=== PATIENT | female | born 1950 | race Caucasian/White ===

== ENCOUNTER → 2017-06-07 | Outpatient (CLI) | payer OTHER | LOC: FIMAGING 10:10 | PROVIDERS: ATTEND Physician Assistant Medical | DX: N20.0 Calculus of kidney (principal); R93.421 Abnormal radiologic findings on diagnostic imaging of right kidney ==

== ENCOUNTER → 2017-06-27 | Outpatient (CLI) | payer OTHER | LOC: FIMAGING 08:29 | PROVIDERS: ATTEND Physician Assistant Medical | DX: Z87.442 Personal history of urinary calculi (principal); Z96.0 Presence of urogenital implants ==

== ENCOUNTER 2017-12-05 09:20 | Inpatient (IN) | payer OTHER ==
[2017-12-05] MEDS ORDERED: cefOXitin SODIUM 2 GM in STERILE WATER INJ 21 ML IV ONE (09:49)
[2017-12-05] MEDS ORDERED: BUPIVACAINE/EPI 0.5% 30 ML SDV ONE (09:59)
--- NOTE | 2017-12-05 10:15 | PDHPUP ---
History & Physical Update H&P update statement: This history and physical update is based on an assessment of the patient which was completed after admission or registration (within 24 hours), but prior to the surgery/procedure. H&P update: no change in patient's condition since H&P completed
[2017-12-05] MEDS ORDERED: LR 1,000 ML IV ONE (10:26)
--- NOTE | 2017-12-05 10:26 | PDANEPAE ---
ANE History of Present Illness Left pyeloplasty DaVinci assist ANE Past Medical History - Cardiovascular History Hx Hypertension: No Hx Arrhythmias: No Hx Chest Pain: No Hx Coronary Artery / Peripheral Vascular Disease: No Hx CHF / Valvular Disease: No Hx Palpitations: No - Pulmonary History Hx COPD: No Hx Asthma/Reactive Airway Disease: Yes Hx Recent Upper Respiratory Infection: No Hx Oxygen in Use at Home: Yes O2 in Use at Home (L/minute): 2.L Hx Sleep Apnea: Yes Sleep Apnea Screening Result - Last Documented: Positive Pulmonary History Comment: upper resp infections and colds trigger asthma - Neurologic History Hx Cerebrovascular Accident: No Hx Seizures: Yes Hx Dementia: No Neurologic History Comment: LAST SEIZURE OVER A YEAR AGO - Endocrine History Hx Diabetes: No Hypothyroid: No Hyperthyroid: No Obesity: mild - Renal History Hx Renal Disorders: No Renal History Comment: KIDNEY STONES - Liver History Hx Hepatic Disorders: No - Neurological & Psychiatric Hx Hx Neurological and Psychiatric Disorders: Yes Neurological / Psychiatric History Comment: TBI 15ys ago - Cancer History Hx Cancer: Yes Cancer History Comment: cancerous tissue removed - Congenital Disorder History Hx Congenital Disorders: No - GI History Hx Gastrointestinal Disorders: Yes Gastrointestinal History Comment: fundaplication 25 yrs ago - Other Health History Other Health History: dentures uppers. front tooth temporary - Chronic Pain History Chronic Pain: Yes (right knee) - Surgical History Prior Surgeries: left rotator cuff repair. 2 cystoscopies jun 28,aug 29 ANE Review of Systems Review of Systems: - Exercise capacity METS (RN): 4 METS ANE Patient History - Allergies Allergies/Adverse Reactions: ciprofloxacin [From Cipro] Allergy (Mild, Verified 11/13/17 11:42) Rash Penicillins Allergy (Mild, Verified 11/13/17 11:42) Rash Sulfa (Sulfonamide Antibiotics) Allergy (Mild, Verified 11/13/17 11:42) Rash BEE STINGS Allergy (Unknown, Uncoded 11/13/17 11:42) - Home Medications Home medications: home medication list seen and reviewed Home Medications: Albuterol [Proventil Inhaler HFA (*)] 1 - 2 puffs IH DAILY PRN 11/12/17 [Last Taken Unknown] Cholecalciferol Vit D3 [Vitamin D3 (*)] 5,000 units PO DAILY 11/12/17 [Last Taken Unknown] Levothyroxine [Synthroid 88 mcg (*)] 88 mcg PO DAILY06 11/12/17 [Last Taken Unknown] Liothyronine Sodium [Cytomel 5 mcg (*)] 5 mcg PO DAILY 11/12/17 [Last Taken Unknown] Omeprazole 20 mg PO DAILY 11/12/17 [Last Taken Unknown] Venlafaxine Xr [Effexor Xr 75MG (*)] 75 mg PO DAILY 11/12/17 [Last Taken Unknown ] - NPO status NPO Since - Liquids (Date): 12/05/17 NPO Since - Liquids (Time): 05:00 NPO Since - Solids (Date): 12/04/17 NPO Since - Solids (Time): 11:00 - Anes Hx Anes Hx: post operative nausea - Smoking Hx Smoking Status: Light smoker Marijuana use: Yes - Family Anes Hx Family Anes Hx: none Family Hx Anesthesia Complications: none ANE Labs/Vital Signs - Vital Signs Blood Pressure: 122/71 Heart Rate: 79 Respiratory Rate: 16 O2 Sat (%): 93 Height: 161.29 cm Weight: 81.647 kg ANE Physical Exam - Airway Neck exam: decreased ROM Mallampati Score: Class 1 Mouth exam: normal dental/mouth exam - Pulmonary Pulmonary: no respiratory distress - Cardiovascular Cardiovascular: regular rate and rhythym - ASA Status ASA Status: III ANE Anesthesia Plan Anesthesia Plan: general endotracheal anesthesia
[2017-12-05] MEDS ORDERED: MIDAZOLAM 2 MG/2 ML VIAL IVP ONE (10:29)
[2017-12-05] MEDS ORDERED: fentaNYL 250 MCG/5 ML INJ ONE ×2 (10:38→13:31)
[2017-12-05] MEDS ORDERED: LIDOCAINE 2% 5 ML SDV ONE (10:38)
[2017-12-05] MEDS ORDERED: GLYCOPYRROLATE 0.2 MG/1 ML VIAL ONE (10:38)
[2017-12-05] MEDS ORDERED: ROCURONIUM 100 MG/10 ML VIAL ONE ×2 (10:38→12:10)
[2017-12-05] MEDS ORDERED: DEXAMETHASONE 4 MG/ML VIAL ONE ×2 (10:38)
[2017-12-05] MEDS ORDERED: PROPOFOL/EMULSION 500 MG/50 ML BOTTLE IV ONE ×3 (10:38→13:31)
[2017-12-05] MEDS ORDERED: SURGIFLO MATRIX KIT WITH THROMBIN 8 ML TP ONE (15:03)
[2017-12-05] MEDS ORDERED: HYDROmorphONE/DILAUDID 2 MG/ML INJ ONE ×2 (15:07→16:35)
[2017-12-05] MEDS ORDERED: ONDANSETRON 4 MG/2 ML VIAL ONE (15:21)
[2017-12-05] MEDS ORDERED: SUGAMMADEX SODIUM 200 MG/2 ML VIAL IVP ONE (15:22)
[2017-12-05] MEDS ORDERED: PETROLAT,WHT/MIN OIL/SOD CHL 3.5 GM OPHT.OINT ONE (15:24)
[2017-12-05] MEDS ORDERED: MEPERIDINE 25 MG/ML SYR IVP PRN (15:42)
[2017-12-05] MEDS ORDERED: ALBUTEROL 3 ML DEYVIAL IH PRN (15:42)
[2017-12-05] MEDS ORDERED: HYDROmorphONE/DILAUDID 2 MG/ML INJ IVP PRN (15:42)
[2017-12-05] MEDS ORDERED: NALOXONE HCL 0.4 MG/ML INJ IVP PRN ×2 (15:42→16:00)
[2017-12-05] MEDS ORDERED: PROMETHAZINE HCL 25 MG/ML INJ IVP PRN ×2 (15:42→15:59)
[2017-12-05] MEDS ORDERED: ONDANSETRON 4 MG/2 ML VIAL IVP PRN (15:42)
--- NOTE | 2017-12-05 15:56 | POSTOPPROG ---
Post Op Note Date of Operation: 12/05/17 Surgeon: Clover Harris (# ) Anesthesia: GET(General Endotracheal) Pre-op Diagnosis: Left UPJ obstruction Post-op Diagnosis: Left UPJ obstruction Procedure: Robotic left dismembered pyeloplasty Findings: See op note Inf/Abcess present in the surg proc area at time of surgery?: No EBL: 100-500 (150 cc) Complications: None Drains: Rodney Marquez (10 Flat) Specimen(s): UPJ
[2017-12-05] MEDS ORDERED: ALBUTEROL 60 PUFFS/8 GM MDI IH PRN (15:57)
[2017-12-05] MEDS ORDERED: fentaNYL 100 MCG/2 ML INJ ONE ×2 (16:05→16:34)
[2017-12-05] MEDS: fentaNYL 100 MCG/2 ML INJ IVP PRN ×3 (16:07→16:38)
[2017-12-05] MEDS: D5W 1/2 NS 1,000 ML IV SCH (18:23)
[2017-12-05] MEDS: HYDROmorphONE/DILAUDID 6 MG/30 ML PCA IV PRN (18:24)
[2017-12-05] MEDS: levETIRAcetam 500 MG TAB PO SCH (20:41)
[2017-12-05] MEDS: cefOXitin SODIUM 2 GM in STERILE WATER INJ 21 ML IV SCH (20:41)
[2017-12-06] MEDS: LEVOTHYROXINE 88 MCG TAB PO SCH (05:06)
[2017-12-06] MEDS: cefOXitin SODIUM 2 GM in STERILE WATER INJ 21 ML IV SCH ×2 (05:06→11:55)
[2017-12-06] MEDS: HYDROmorphONE/DILAUDID 6 MG/30 ML PCA IV PRN (08:31)
[2017-12-06] MEDS: VENLAFAXINE XR 75 MG CAP PO SCH (09:59)
[2017-12-06] MEDS: PANTOPRAZOLE SODIUM 40 MG TAB PO SCH (10:00)
[2017-12-06] MEDS: LIOTHYRONINE SODIUM 5 MCG TAB PO SCH (10:00)
[2017-12-06] MEDS: levETIRAcetam 500 MG TAB PO SCH ×2 (10:00→20:13)
--- NOTE | 2017-12-06 10:40 | POSTANESTH ---
Post Anesthetic Evaluation Cardiovascular Status: Normal, Stable Respiratory Status: Normal, Stable Level of Consciousness/Mental Status: Can Participate in Eval Pain Control: Adequate, Prn Tx Ordered Nausea/Vomiting Control: Adequate, Prn Tx Ordered Complications Possibly Related to Anesthesia: None Noted (Pt. has left upper quad. discomfort. Pain controlled with IV meds.)
[2017-12-06] MEDS: D5W 1/2 NS 1,000 ML IV SCH ×2 (10:45→19:58)
[2017-12-06] MEDS: ONDANSETRON 4 MG/2 ML VIAL IVP PRN (11:55)
--- NOTE | 2017-12-06 13:08 | ASMTCMCOM ---
CM Note CM Note Notes: Reviewed chart and discussed w/RN. Pt is POD#1, s/p pyeloplasty. Met w/pt to discuss dc plan. She lives at home alone but has good support of friends. DC needs, if any, not clear yet. CM will follow. Date Signed: 12/06/2017 01:08 PM Electronically Signed By:Edwina Chavez RN
[2017-12-06] MEDS ORDERED: KETOROLAC 30 MG/1 ML SDV IVP ONE (13:43)
--- NOTE | 2017-12-06 13:48 | SOAPPROG ---
SOAP Progress Note Assessment/Plan: Assessment: POD 1 s/p robotic left pyeloplasty - stable. Plan: 1. Continue clear liquids today until nausea resolves. 2. Start Toradol. 3. Continue ambulation, Landon, MISAEL. 4. Recheck labs in AM. 5. Remove Landon in AM then check MISAEL creatinine level thereafter. Subjective: Complains of LUQ pain which is aided by MANAGER OF PATIENT. Had nausea and dry heaves w/ attempted clear liquid diet earlier today. Ambulated in halls already w/ assistance. Objective: Vital Signs Temp Pulse Resp BP Pulse Ox 36.8 C 76 16 126/66 H 94 12/06/17 11:54 12/06/17 11:54 12/06/17 11:54 12/06/17 11:54 12/06/17 11:54 Laboratory Results 12/06/17 05:00 12/06/17 05:00 12/05/17 12/06/17 12/07/17 05:59 05:59 05:59 Intake Total 3600 Output Total 1060 Balance 2540 Physical Exam - Physical Exam General Appearance: alert, no apparent distress, obese Abdomen: soft, distended (mildly), other (tender LUQ, incisions C/D/I, MISAEL in place) Back: CVA tenderness (mild left) Skin: normal color, warm/dry Extremities: non-tender, normal inspection Neuro/Psych: alert, normal mood/affect, oriented x 3 ICD10 Worksheet Patient Problems: Problems Problem Status Onset Ureteropelvic junction (UPJ) obstruction, left Acute - ICD10 Problem Qualifiers (1) Ureteropelvic junction (UPJ) obstruction, left
--- NOTE | 2017-12-06 14:55 | PDMN ---
Medical Necessity Medical necessity: Patient meets inpatient criteria per physician note and MCG Urologic Surgery or Procedure GRG (robotic left dismembered pyeloplasty for L UPJ obstruction; anticipated LOS > 2 midnights for ongoing pain control/IV Dilaudid via PACKAGING MACHINE OPERATOR.)
--- NOTE | 2017-12-06 15:40 | GOP ---
[f rep st] OPERATIVE REPORT DATE OF OPERATION: 12/05/2017 SURGEON: Clover Harris MD ANESTHESIA: General endotracheal. PREOPERATIVE DIAGNOSIS: Left ureteropelvic junction obstruction. POSTOPERATIVE DIAGNOSIS: Left ureteropelvic junction obstruction. PROCEDURE PERFORMED: Robotically-assisted left dismembered pyeloplasty with antegrade left ureteral stent placement through established ureterotomy. FINDINGS: Left renal lower pole crossing vessels were seen draping over the ureteropelvic junction and causing visual obstruction. Significant fibrotic reaction was noted around the renal pelvis, ureteropelvic junction, and proximal ureter. SPECIMENS: Portion of ureteropelvic junction for permanent histologic examination. ESTIMATED BLOOD LOSS: Approximately 150 cc. INDICATIONS: This woman has had issues with recurrent left nephrolithiasis for the last few years. More recent evaluation of her urinary tract anatomy revealed a ureteropelvic junction obstruction, and the thought is that her recurrent left nephrolithiasis might be due to urinary stasis as a result of this obstruction. Therefore, she presents at this time for operative management of her UPJ obstruction. The indications for the procedures as well as potential risks and complications were discussed with the patient preoperatively. She appeared to understand, her questions were answered, and she wished to proceed. Written informed surgical consent was thereafter obtained. DESCRIPTION OF PROCEDURE: The patient was brought to the operating room and administered general endotracheal anesthesia. A Landon catheter was placed to bag drainage. The patient was then propped up into the left flank up position, approximately 30 degrees with the use of a triangular pad behind her back. The table was flexed approximately 15 degrees after the patient was placed over the break of the table. The patient's right leg was flexed at the knee while the left leg was kept straight over it. An axillary roll was placed. All appropriate pressure points were thoroughly padded. The patient was then secured carefully to the table with several strips of wide tape from head to toe. The patient's left arm was kept at her side in neutral position in a foam trough, while the right arm was kept abducted less than 90 degrees on an arm board. Once the patient had been secured to the table, the table was tilted in maximum positions to the right and left to confirm she was stable on the table and it was found that she was stable and secure on the table, and this was confirmed. The abdomen was then sterilely prepped and draped in standard fashion utilizing Ioban. Intraabdominal access was gained approximately custodial between the umbilicus and the xiphoid, just to the left of midline, with a Veress needle. The abdomen was insufflated to 15 mmHg pressure which was the pressure maintained throughout the majority of the case. A 12 mm laparoscopic port was placed at this location to be used as the camera port. The abdomen was then carefully inspected with a 12 mm 0 degree robotic camera. There were some adhesions noted in the left lateral abdomen and left upper quadrant, which I felt I could easily lyse robotically. The remainder of the abdomen was unremarkable. I then marked out my remaining port sites which were as follows: An 8 mm robotic port placed just lateral to the midclavicular line approximately 2 fingerbreadths below the costal margin in the left upper quadrant, another 8 mm port placed in the lower aspect of the left upper quadrant and nearly in the same longitudinal line as the other robotic port, and a 12 mm assistant cross country coach port placed in the lower midline just below the umbilicus. All these ports were placed under direct vision without complication. The patient was then tilted over to the left flank up position, approximately 90 degrees. The robot was then docked against the patient's back with the midline of the robot staying in line with the 12 mm laparoscopic port to be used for the camera. The robotic arms were then secured to the appropriate ports. The 0 degree 12 mm camera was initially used, along with monopolar curved scissors and bipolar [place] grasper. I then left the patient 's bedside and entered the surgeon's robotic console. I began the robotic portion of procedure by taking down the adhesions between the omentum and the anterior abdominal wall. This was accomplished without difficulty. I then mobilized the left colon off the lateral abdominal wall and reflected it medially across the midline in order to expose the left kidney and hilar structures. The patient had an extensive amount of retroperitoneal fat, more than I would typically see in a female. Visualization with the 0 degree camera was somewhat hindered in the midline as a result of all this fat, as well as the patient's intraperitoneal organs. Therefore, I switched to the 30 degree down lens, which provided much better visualization of the operative site during the remainder of the operation. After the colon had been reflected medially, I was able to identify the location of the ureter caudal to the kidney. I then had my assistant cross country coach lift up on the ureter carefully in an anterior fashion and continued my dissection posteriorly until the psoas fascia was reached. I also identified the gonadal vein. I initially tried to spare it and keep it medially out of harm's way. However, I was concerned that I would eventually avulse it later on during the case. As a result, I then ligated the gonadal vein between hemo-lock clips and divided it with scissors. I continued my dissection superiorly along the medial aspect of the left retroperitoneum, following the ureter until I was able to identify the renal pelvis. As I approached the renal pelvis, and just caudal to it, I did identify a prominent lower pole renal artery and associated vein which appeared to drape immediately over the ureteropelvic junction and these vessels appeared likely to be the source of obstruction. These vessels were kept unharmed throughout the operation. I then carefully dissected the renal pelvis circumferentially, as well as the ureteropelvic junction and proximal ureter. Care was taken not to strip all adventitial vasculature away from the ureter in order to maintain its viability. There was a fairly significant fibrotic rind around the proximal ureter, ureteropelvic junction, and renal pelvis, which was somewhat tedious to dissect through, but I was ultimately successful in doing so. I then transected the ureter at the level of the ureteropelvic junction and allowed the lower pole vessels to fall posterior to the collecting system and ureter. I then spatulated the ureter to allow for a more widely patent reanastomosis to the renal pelvis. The renal pelvis was carefully inspected. I did not feel that any reduction pyeloplasty was necessary. I did utilize a running 4-0 Monocryl suture to close the superior aspect of the renal pelvis defect and then tacked this suture to the anterior abdominal wall to allow for better exposure of the renal pelvis during the pyeloplasty. I then utilized a double- armed 4-0 Monocryl suture to perform the anastomotic reconstruction between the ureter and the renal pelvis. Care was taken to ensure that the ureter was not twisted before beginning this anastomosis. Before completing the anastomosis, I inserted a 0.035 inch hydrophilic guidewire through the established ureterotomy and down toward the bladder. This was followed by advancement of a 6-Lithuanian by 26 cm hydrophilic ureteral stent. The stent was properly positioned , followed by removal of the guidewire. The anastomosis was then completed. More careful examination of the anastomosis at this point revealed a portion of breakdown along the anterior aspect of the anastomosis, as well as with part of the separate renal pelvic closure, both of which had been performed with 4-0 Monocryl suture. I repaired these areas with a running 3-0 Monocryl suture, both as far as the renal pelvis and the ureteropelvic junction anastomosis was concerned. At the conclusion of this revision to the reconstruction, the renal pelvis was noted to be nicely closed and the ureteropelvic junction anastomosis was widely patent and intact. I then passed a 10 flat Rodney-Marquez drain over the region of the repair and brought it out through the skin from the lower 8 mm robotic port. It was ultimately secured to the skin with a 2-0 silk suture and connected to bulb suction. Hemostasis was well present at this point. Nonetheless, to provide further reassurance regarding hemostasis, I did apply some Surgiflo to the region of the ureteropelvic junction and the surrounding hilar vessels. With the intraabdominal pressure decreased to 5 mmHg at this point, no bleeding was seen. This completed the robotic portion of the procedure. I returned to the patient's bedside. An 0 Vicryl suture with a fascial closure device was utilized to close the rectus fascia at the location of the 12 mm port sites. The skin edges of all the incisions were then reapproximated with running 4-0 Monocryl suture in a subcuticular fashion after anesthetizing the wounds locally with a total of 30 cc of 0.5% Marcaine with epinephrine. Dermabond was placed over all the incisions. The Landon catheter was kept in place. The patient was then awakened, extubated, transferred to her bed, then taken to the recovery room. She tolerated the procedure well overall. COMPLICATIONS: None. DISPOSITION: She was transferred to the recovery room in stable condition and will be admitted for postoperative care. /[id number]/MODL MTDD
[2017-12-06] MEDS: KETOROLAC 15 MG/1 ML SDV IVP SCH (20:13)
[2017-12-07] MEDS: KETOROLAC 15 MG/1 ML SDV IVP SCH ×4 (00:55→19:50)
[2017-12-07] MEDS: HYDROmorphONE/DILAUDID 6 MG/30 ML PCA IV PRN (01:57)
[2017-12-07] MEDS: LEVOTHYROXINE 88 MCG TAB PO SCH (04:23)
[2017-12-07] MEDS: D5W 1/2 NS 1,000 ML IV SCH (04:24)
[2017-12-07] MEDS: VENLAFAXINE XR 75 MG CAP PO SCH (09:17)
[2017-12-07] MEDS: LIOTHYRONINE SODIUM 5 MCG TAB PO SCH (09:17)
[2017-12-07] MEDS: levETIRAcetam 500 MG TAB PO SCH ×2 (09:18→19:49)
[2017-12-07] MEDS: PANTOPRAZOLE SODIUM 40 MG TAB PO SCH (09:18)
[2017-12-07] MEDS ORDERED: HYDROmorphONE/DILAUDID 1 MG/ML INJ IVP PRN (11:43)
[2017-12-07] MEDS ORDERED: HYDROmorphone HCL 0.5 MG/0.5 ML SYR IVP PRN (11:47)
--- NOTE | 2017-12-07 11:56 | SOAPPROG ---
SOAP Progress Note Assessment/Plan: Assessment: s/p pyeloplasty Plan: ADAT OOB and ambulate Continue O2- pt is on O2 at home Check MISAEL creatinine PO pain medications Hope later today or tomorrow AM. D/W pt and RN 12/07/17 11:54 Subjective: Having some discomfort on deep inspiration. +flatus. Tolerating clears. Has urinated. Has ambulated in the halls Objective: Vital Signs Temp Pulse Resp BP Pulse Ox 36.8 C 80 16 118/65 96 12/07/17 10:00 12/07/17 10:00 12/07/17 10:00 12/07/17 10:00 12/07/17 10:00 Laboratory Results 12/07/17 05:09 12/07/17 05:09 12/06/17 12/07/17 12/08/17 05:59 05:59 05:59 Intake Total 3600 3121 Output Total 1060 610 Balance 2540 2511 Physical Exam - Physical Exam General Appearance: alert, no apparent distress Respiratory: No respiratory distress Abdomen: soft, No distended, No guarding Skin: normal color, warm/dry Neuro/Psych: alert, normal mood/affect, oriented x 3 ICD10 Worksheet Patient Problems: Problems Problem Status Onset Ureteropelvic junction (UPJ) obstruction, left Acute
[2017-12-07] MEDS: ONDANSETRON 4 MG/2 ML VIAL IVP PRN (13:19)
--- NOTE | 2017-12-07 15:02 | ASMTCMCOM ---
CM Note CM Note Notes: Spoke w/RN, pt will dc home w/support of friends/family when medically stable. CM available for any changes. DC Plan: Independent Date Signed: 12/07/2017 03:01 PM Electronically Signed By:Jennifer Duncan RN
[2017-12-07] MEDS: OXYCODONE/APAP 5/325 TAB PO PRN ×2 (16:36→19:48)
[2017-12-08] MEDS: OXYCODONE/APAP 5/325 TAB PO PRN ×2 (03:21→08:53)
[2017-12-08] MEDS ORDERED: KETOROLAC 15 MG/1 ML SDV ONE (03:22)
[2017-12-08] MEDS: KETOROLAC 15 MG/1 ML SDV IVP SCH (03:24)
[2017-12-08] MEDS: LEVOTHYROXINE 88 MCG TAB PO SCH (07:11)
[2017-12-08] MEDS: VENLAFAXINE XR 75 MG CAP PO SCH (08:53)
[2017-12-08] MEDS: PANTOPRAZOLE SODIUM 40 MG TAB PO SCH (08:53)
[2017-12-08] MEDS: LIOTHYRONINE SODIUM 5 MCG TAB PO SCH (08:54)
[2017-12-08] MEDS: levETIRAcetam 500 MG TAB PO SCH (08:54)
--- NOTE | 2017-12-08 09:16 | GDS ---
[f rep st] DISCHARGE SUMMARY REASON FOR ADMISSION: Hydronephrosis. HISTORY OF PRESENT ILLNESS: The patient has a history of hydronephrosis in the left kidney, now pres ents for robotic-assisted pyeloplasty and stent placement. HOSPITAL COURSE: She was admitted, underwent the above procedure. She tolerated it well and was tra nsferred to the floor in stable condition. On postoperative day #1, she had some nausea so her diet was held to clear liquids. On postoperative day #2, she was ambulating. She had some improvement in her nausea. She also passed some gas. So at this point, her ACCOUNT INFORMATION CLERK was stopped. Her IV fluids were s topped. Her catheter was removed. MISAEL creatinine was checked and was consistent with serum. Therefo re, the MISAEL was removed. On postoperative day #3, she was tolerating a diet, she was ambulating witho ut difficulty and her pain was well controlled with pain pills. Therefore, she was declared stable f or discharge. Prior to discharge, she was given discharge instructions, a prescription for Percocet was sent to her pharmacy via E-prescribing and the remainder of her medications were reconciled. She will follow up with Dr. aHrris in approximately 2 weeks. /[id number]/MODL
--- NOTE | 2017-12-08 09:21 | ASMTLACE ---
[facility] Length of stay for Answers: 3 days current admission Acuity / Level of Answers: Yes Care: Did the patient have an inpatient admission? Comorbidities - select Answers: Opioid dependence all that apply / Chronic pain Other Notes: Hx of seizures # of Emergency department Answers: 0 visits in the last 6 months Score: 11 Date Signed: 12/08/2017 09:20 AM Electronically Signed By:Rowan Cisneros RN
--- NOTE | 2017-12-08 09:22 | ASMTCMCOM ---
CM Note CM Note Notes: Medically cleared for dc. No needs identified. CM available if needs arise. Plan: Home Date Signed: 12/08/2017 09:21 AM Electronically Signed By:Rowan Cisneros RN
[2017-12-08 12:11] VITALS: BP 127/62
== END 2017-12-08 12:30 | disposition home or self-care (01) | DRG 661 ==
LOC: F3E 09:20 → F1N 13:04 → F3E 15:30
PROVIDERS: ADMIT Specialist; ATTEND Urology
PROC: 8E0W4CZ Robotic Assisted Procedure of Trunk Region, Percutaneous Endoscopic Approach (ICD-10-PCS; principal; 2017-12-05 10:45)
PROC: 0T9740Z Drainage of Left Ureter with Drainage Device, Percutaneous Endoscopic Approach (ICD-10-PCS; principal; 2017-12-05 10:45)
PROC: 0TQ44ZZ Repair Left Kidney Pelvis, Percutaneous Endoscopic Approach (ICD-10-PCS; principal; 2017-12-05 10:45)
DX: N13.5 Crossing vessel and stricture of ureter without hydronephrosis (principal); Z87.442 Personal history of urinary calculi; J45.909 Unspecified asthma, uncomplicated; G40.909 Epilepsy, unspecified, not intractable, without status epilepticus; Z87.820 Personal history of traumatic brain injury; F12.90 Cannabis use, unspecified, uncomplicated
CPT/HCPCS: C1769; C2625; J0694; J1100; J1170; J1885; J2250; J2405; J2704; J3010

== ENCOUNTER 2017-12-25 12:31 | Inpatient (IN) | payer OTHER ==
[2017-12-25 13:24] LABS: PLATELET COUNT 536 10^3/uL (150-400)
--- NOTE | 2017-12-25 13:36 | EDPHY ---
H & P Stated Complaint: ?urosepsis/ fever post pyeloplasty Time Seen by Provider: 12/25/17 13:35 - Personal History Current Tetanus/Diphtheria Vaccine: Unsure - Medical/Surgical History Hx Asthma: No Hx Chronic Respiratory Disease: No Hx Diabetes: No Hx Cardiac Disease: No Hx Renal Disease: No Hx Cirrhosis: No Hx Alcoholism: No Hx HIV/AIDS: No Hx Splenectomy or Spleen Trauma: No Other PMH: pyeloplasty/TBI/seizure disorder, l kidney stent - Social History Smoking Status: Former smoker Constitutional: Initial Vital Signs Temperature (C) 37.6 C 12/25/17 12:47 Heart Rate 90 12/25/17 12:47 Respiratory Rate 17 12/25/17 12:47 Blood Pressure 161/80 H 12/25/17 12:47 O2 Sat (%) 96 12/25/17 12:47 O2 Delivery Mode Room Air Allergies/Adverse Reactions: ciprofloxacin [From Cipro] Allergy (Mild, Verified 12/25/17 12:45) Rash Penicillins Allergy (Mild, Verified 12/25/17 12:45) Rash Sulfa (Sulfonamide Antibiotics) Allergy (Mild, Verified 12/25/17 12:45) Rash BEE STINGS Allergy (Unknown, Uncoded 12/05/17 10:29) Home Medications: Medication Instructions Recorded Albuterol [Proventil Inhaler HFA 1 - 2 puffs IH DAILY PRN 11/12/17 (*)] Cholecalciferol Vit D3 [Vitamin D3 5,000 units PO DAILY 11/12/17 (*)] Levothyroxine [Synthroid 88 mcg 88 mcg PO DAILY06 11/12/17 (*)] Liothyronine Sodium [Cytomel 5 mcg 5 mcg PO DAILY 11/12/17 (*)] levETIRAcetam [Keppra 500 mg (*)] 1,000 mg PO BID 12/05/17 Venlafaxine Xr [Effexor Xr 75MG 75 mg PO DAILY cap 12/08/17 (*)] Herbals/Supplements -Info Only 1 ea PO DAILY 12/25/17 Ibuprofen [Motrin (*)] 200 mg PO DAILY PRN 12/25/17 Medical Decision Making ED Course/Re-evaluation: CHIEF COMPLAINT: Kidney infection HISTORY OF PRESENT ILLNESS: This patient is a 67 y/o female who presents with kidney infection. She had a pyloroplasty following a clogged ureter and had a stent placed by Dr. Harris three weeks ago. She has history of multiple kidney stones. The patient began feeling poorly on Saturday. She has felt nauseous and had dry heaves for several days. Additionally, she complains of severe back and left flank pain. This morning, her urine looked purulent so she presented to her urologist's office for evaluation. She was referred to the emergency department for further evaluation. She recently took a week long course of Keflex and felt asymptomatic at that time. She denies fever, lightheadedness, chest pain, shortness of breath, or other associated symptoms. REVIEW OF SYSTEMS: A 10 point review of systems was performed and is negative with the exception of the elements mentioned in the history of present illness. PHYSICAL EXAM: HR, BP, O2 Sat, RR. Temp noted General Appearance: Alert, well hydrated, appropriate, and non-toxic appearing. Head: Atraumatic without scalp tenderness or obvious injury Eyes: Pupils equal, round, reactive to light and accommodation, EOMI, no trauma , no injection. Ears: Clear bilaterally, no perforation, normal landmarks Nose: Atraumatic, no rhinorrhea, clear. Throat: There is no erythema or exudates, no lesions, normal tonsils, mucus membranes moist. Neck: Supple, 2+ carotid upstroke, nontender, no lymphadenopathy. Respiratory: No retractions, no distress, no wheezes, and no accessory muscle use. Lungs are clear to auscultation bilaterally. Cardiovascular: Regular rate and rhythm, no murmurs, rubs, or gallops. Bilateral carotid, radial, dorsalis pedis, and posterior tibial pulses intact. Good capillary refill all extremities. Gastrointestinal: Left flank tenderness. Abdomen is soft, non-distended, no masses, no rebound, no guarding, no peritoneal signs. Musculoskeletal: Normal active ROM of all extremities, atraumatic. Neurological: Alert, appropriate, and interactive. Nonfocal neuro exam. Skin: No rashes, good turgor, no nodules on palpation. Past medical history: Kidney stones, UPJ obstruction, history of TBI, seizure disorder Past surgical history: Pyeloplasty, left kidney stent placement. Family history: Noncontributory. 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 Lives in [place]. DIFFERENTIAL DIAGNOSIS: The differential diagnosis for the patient's flank pain included but was not limited to musculoskeletal causes, kidney stone, pyelonephritis, shingles, diverticulitis, appendicitis, and aortic aneurysm. MEDICAL DECISION MAKIN67 y/o female presents with worsening kidney infection, symptoms including pain and nausea. Plan for labs including CBC, chemistries, UA, lactic acid, blood cultures. Plan to administer 0.5mg IV Dilaudid and 4mg IV Zofran for symptom relief. UA positive for infection. WBC elevated at 20,000. Plan to administer 2gm IV Rocephin. Plan to consult with Dr. Harris and with the hospitalist service. The patient will require admission for IV antibiotics. 14:14 Dr. Pierce accepts admission for complicated pyelonephritis secondary to indwelling ureteral vesicular stent. 14:47 Spoke with BEVERLY Melton for urology. She will relay the plan to Dr. Harris, who will make a decision regarding removing the ureteral stent. - Data Points Laboratory Results: Laboratory Results 12/25/17 13:10 12/25/17 12/25/17 12/25/17 13:10 13:10 13:10 WBC 20.10 10^3/uL H 10^3/uL (3.80-9.50) RBC 3.62 10^6/uL L 10^6/uL (4.18-5.33) Hgb 10.8 g/dL L g/dL (12.6-16.3) Hct 33.4 % L % (38.0-47.0) MCV 92.3 fL fL (81.5-99.8) MCH 29.8 pg pg (27.9-34.1) MCHC 32.3 g/dL L g/dL (32.4-36.7) RDW 12.5 % % (11.5-15.2) Plt Count 536 10^3/uL H 10^3/uL (150-400) MPV 8.9 fL fL (8.7-11.7) Neut % (Auto) 86.8 % H % (39.3-74.2) Lymph % (Auto) 6.1 % L % (15.0-45.0) [place] % (Auto) 6.1 % % (4.5-13.0) Eos % (Auto) 0.3 % L % (0.6-7.6) Baso % (Auto) 0.3 % % (0.3-1.7) Nucleat RBC Rel Count 0.0 % % (0.0-0.2) Absolute Neuts (auto) 17.44 10^3/uL H 10^3/uL (1.70-6.50) Absolute Lymphs (auto) 1.22 10^3/uL 10^3/uL (1.00-3.00) Absolute Monos (auto) 1.23 10^3/uL H 10^3/uL (0.30-0.80) Absolute Eos (auto) 0.06 10^3/uL 10^3/uL (0.03-0.40) Absolute Basos (auto) 0.06 10^3/uL 10^3/uL (0.02-0.10) Absolute Nucleated RBC 0.00 10^3/uL 10^3/uL (0-0.01) Immature Gran % 0.4 % % (0.0-1.1) Immature Gran # 0.09 10^3/uL 10^3/uL (0.00-0.10) VBG Lactic Acid 1.2 mmol/L mmol/L (0.7-2.1) Sodium Potassium Chloride Carbon Dioxide Anion Gap BUN Creatinine Estimated GFR Glucose Calcium Urine Color MEI Urine Appearance TURBID Urine pH 5.0 (5.0-7.5) Ur Specific [place] 1.020 (1.002-1.030) Urine Protein 2+ H (NEGATIVE) Urine Ketones NEGATIVE (NEGATIVE) Urine Blood 2+ H (NEGATIVE) Urine Nitrate NEGATIVE (NEGATIVE) Urine Bilirubin NEGATIVE (NEGATIVE) Urine Urobilinogen NEGATIVE EU EU (0.2-1.0) Ur Leukocyte Esterase 3+ H (NEGATIVE) Urine RBC 50-182 /hpf H /hpf (0-3) Urine WBC 50-182 /hpf H /hpf (0-3) Ur Epithelial Cells TRACE /lpf /lpf (NONE-1+) Urine Bacteria 1+ /hpf H /hpf (NONE SEEN) Urine Mucus 2+ /lpf H /lpf (NONE-1+) Urine Glucose NEGATIVE (NEGATIVE) 12/25/17 13:10 WBC RBC Hgb Hct MCV MCH MCHC RDW Plt Count MPV Neut % (Auto) Lymph % (Auto) [place] % (Auto) Eos % (Auto) Baso % (Auto) Nucleat RBC Rel Count Absolute Neuts (auto) Absolute Lymphs (auto) Absolute Monos (auto) Absolute Eos (auto) Absolute Basos (auto) Absolute Nucleated RBC Immature Gran % Immature Gran # VBG Lactic Acid Sodium Pending Potassium Pending Chloride Pending Carbon Dioxide Pending Anion Gap Pending BUN Pending Creatinine Pending Estimated GFR Pending Glucose Pending Calcium Pending Urine Color Urine Appearance Urine pH Ur Specific [place] Urine Protein Urine Ketones Urine Blood Urine Nitrate Urine Bilirubin Urine Urobilinogen Ur Leukocyte Esterase Urine RBC Urine WBC Ur Epithelial Cells Urine Bacteria Urine Mucus Urine Glucose Medications Given: Discontinued Medications Hydromorphone HCl (Dilaudid) 0.5 mg IVP EDNOW ONE Stop: 12/25/17 13:46 Last Admin: 12/25/17 13:48 Dose: 1 mg Hydromorphone HCl (Dilaudid) 0.5 mg IVP EDNOW ONE Stop: 12/25/17 13:49 Last Admin: 12/25/17 13:50 Dose: Not Given Ceftriaxone Sodium 2 gm/ (Sterile Water) 20 mls @ 300 mls/hr IV EDNOW ONE PRN Reason: Protocol Stop: 12/25/17 13:55 Last Admin: 12/25/17 14:38 Dose: 20 mls Ondansetron HCl (Zofran) 4 mg IVP EDNOW ONE Stop: 12/25/17 13:47 Last Admin: 12/25/17 13:48 Dose: 4 mg Departure - Departure Disposition: [facility] Acute Clinical Impression: Pyelonephritis Condition: Fair Report Scribed for: Nilo Cadet Report Scribed by: Irene Garcia Date of Report: 12/25/17 Time of Report: 13:55
[2017-12-25] MEDS ORDERED: HYDROmorphONE/DILAUDID 1 MG/ML INJ ONE (13:43)
[2017-12-25] MEDS ORDERED: HYDROmorphONE/DILAUDID 1 MG/ML INJ IVP ONE (13:45)
[2017-12-25] MEDS ORDERED: ONDANSETRON 4 MG/2 ML VIAL IVP ONE (13:46)
[2017-12-25] MEDS ORDERED: HYDROmorphONE/DILAUDID 2 MG/ML INJ IVP ONE (13:48)
[2017-12-25] MEDS ORDERED: cefTRIAXone 2 GM in STERILE WATER INJ 20 ML IV ONE (13:52)
[2017-12-25] MEDS ORDERED: NS 1,000 ML IV ONE (14:47)
[2017-12-25] MEDS ORDERED: IOPAMIDOL (ISOVUE-300) 150 ML BTL ONE (15:51)
[2017-12-25] MEDS ORDERED: ACETAMINOPHEN 325 MG TAB PO PRN (15:57)
[2017-12-25] MEDS ORDERED: traMADol 50 MG TAB PO PRN (15:57)
[2017-12-25] MEDS ORDERED: PROMETHAZINE HCL 25 MG/ML INJ IVP PRN (15:57)
[2017-12-25] MEDS ORDERED: NS 1,000 ML IV SCH (16:00)
[2017-12-25] MEDS: HYDROmorphONE/DILAUDID 1 MG/ML INJ IVP PRN (16:39)
--- NOTE | 2017-12-25 16:53 | GHP ---
[f rep st] HISTORY AND PHYSICAL DATE OF ADMISSION: 12/25/2017 CHIEF COMPLAINT: Flank pain. HISTORY OF PRESENT ILLNESS: Valerie is a 67-year-old female with a history of UPJ obstruction with sev ere left hydronephrosis, and she underwent a robotic-assisted pyeloplasty with stent placement on Nov with Dr. Harris. She went home on December 08. After surgery, Dr. Harris had a concern for a m ild infection of her incision and gave her a week of Keflex. The Keflex finished last Saturday pura ng. She felt fine until that time. The next day, Saturday night, she developed fatigue and started fe eling worse. For the last 1 day, she has had a fever to 101, nausea, vomiting, worsening left flank pain. This morning, she noticed her urine is purulent. PAST MEDICAL HISTORY: 1. Left UPJ obstruction status post stent. 2. Recurrent nephrolithiasis. 3. 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 4. Hypothyroidism. 5. Breast cancer status post lumpectomy 30 years ago. She refused chemo and radiation but has not h ad recurrence. PAST SURGICAL HISTORY: Roby fundoplication, hysterectomy. MEDICATIONS: Please see computer record for full detailed list. ALLERGIES: Cipro, penicillin, and sulfa. She appears to tolerate cephalosporins. SOCIAL HISTORY: No smoking, occasional alcohol. She lives alone. She became disabled at the time o f her traumatic brain injury. REVIEW OF SYSTEMS: Complete review of systems obtained. Negative for constitutional, HEENT, GI, pul monary, CV, , hematologic, musculoskeletal, endocrine, psych, except for positives and negatives as in HPI. FAMILY HISTORY: Reviewed. Noncontributory to presenting complaint. PHYSICAL EXAMINATION: GENERAL: Well-developed, well-nourished female, in no acute distress. VITAL SIGNS: Temperature 37.6, pulse 90, blood pressure 161/80, saturating 93% on room air. HEENT: [place] l conjunctivae. Pupils react to light. Normal ears and nose. Hearing intact. Normal teeth. Oroph arynx moist. NECK: Trachea midline. No thyromegaly. CHEST: Normal and symmetric. LUNGS: Clear t o auscultation bilaterally. CARDIOVASCULAR: Regular rate and rhythm. No murmur. No extremity erika a. ABDOMEN: Soft, nontender. No hepatosplenomegaly. She does have some left flank tenderness that is reproducible. SKIN: Warm, dry, intact without rash. MUSCULOSKELETAL: No cyanosis, clubbing. Strength 5/5 upper and lower extremities. NEUROLOGIC: Cranial nerves intact. Normal sensation to l ight touch. PSYCHIATRIC: Alert and oriented x3. Normal affect. Normal judgment. Normal memory. LABORATORY DATA: White count 20.1, hematocrit 33.4, platelets 536. Sodium 140, potassium 3.8, chlor ryland 102, bicarb 22, BUN 11, creatinine 0.8, glucose 107, lactate 1.2. Urinalysis shows 50-182 white blood cells. This case was discussed with Dr. Nilo Cadet, emergency room provider, who spoke with Dr. Harris reg kerry admission, and after consultation, medical record review, I reviewed operative report from Dr. Harris, as well as all Urology records from her recent hospitalization. Her postoperative course wa s unremarkable. ASSESSMENT/PLAN: 1. Urinary tract infection with sepsis. Suspected to be a complication of her recent ureteral stent that has been placed. Blood and urine cultures have been sent. Will continue intravenous ceftriaxo ne empiric therapy. Continue intravenous fluids. The patient will get a CT scan to rule out obstruc tion at the level of the stent. Dr. Harris will see her in consultation. Will continue intravenous Dilaudid for pain control. 2. Traumatic brain injury with seizure disorder. We will continue her Keppra. 3. Code status. Full. 4. Admission status. Will admit to observation. Will re-evaluate tomorrow her ongoing need for hos pitalization. 5. Deep vein thrombosis prophylaxis should be instituted if she ends up having a prolonged hospitali zation. /[id number]/MODL
[2017-12-25] MEDS: ONDANSETRON 4 MG/2 ML VIAL IVP PRN (18:21)
[2017-12-25] MEDS: oxyCODONE IR 5 MG TAB PO PRN (18:21)
[2017-12-25] MEDS: levETIRAcetam 500 MG TAB PO SCH (20:07)
[2017-12-25] MEDS: PROMETHAZINE HCL 25 MG/ML INJ IVP PRN (21:06)
--- NOTE | 2017-12-25 23:22 | SOAPPROG ---
[facility] Progress Note Assessment/Plan: Assessment: 1. Urine leak from left renal pelvis w/ resulting urinoma, s/p robotic left dismembered pyeloplasty & ureteral stent placement on 12/05. 2. Complicated UTI involving either left kidney, urinoma, or both. She is not toxic. Plan: 1. Maximize urinary diversion from left renal pelvis/UPJ w/ Landon catheter tonight & left percutaneous nephrostomy thru IR tomorrow. 2. Percutaneous urinoma drainage thru IR tomorrow (discussed case w/ Dr. Agosto). 3. Continue IV Rocephin for now. See full dictated consult note (#[id number]). Objective: Vital Signs Temp Pulse Resp BP Pulse Ox 37.2 C 92 18 147/80 H 89 L 12/25/17 20:01 12/25/17 20:01 12/25/17 20:01 12/25/17 20:01 12/25/17 20:01 12/24/17 12/25/17 12/26/17 05:59 05:59 05:59 Intake Total 750 Output Total 600 Balance 150 ICD10 Worksheet Patient Problems: Problems Problem Status Onset Pyelonephritis Acute Ureteropelvic junction (UPJ) obstruction, left Acute
[2017-12-26 05:40] LABS: PLATELET COUNT 409 10^3/uL (150-400)
[2017-12-26] MEDS: oxyCODONE IR 5 MG TAB PO PRN ×2 (05:59→20:32)
[2017-12-26] MEDS: LEVOTHYROXINE 88 MCG TAB PO SCH (05:59)
[2017-12-26] MEDS: levETIRAcetam 500 MG TAB PO SCH ×2 (08:00→20:33)
[2017-12-26] MEDS: PROMETHAZINE HCL 25 MG/ML INJ IVP PRN (08:00)
[2017-12-26] MEDS: VENLAFAXINE XR 75 MG CAP PO SCH (08:00)
[2017-12-26] MEDS: LIOTHYRONINE SODIUM 5 MCG TAB PO SCH (08:00)
--- NOTE | 2017-12-26 09:09 | GCON ---
[f rep st] CONSULTATION UROLOGY CONSULTATION DATE OF CONSULTATION: 12/25/2017 PHYSICIAN REQUESTING CONSULTATION: Hospitalist service. REASON FOR CONSULTATION: Left flank pain and fevers, status post pyeloplasty. INDICATIONS: This is a 67-year-old woman who is well known to my practice who underwent robotically-assisted laparoscopic left dismembered pyeloplasty with ureteral stent placement on 12/05/2017 for ureteropelvic junction obstruction. She was doing well postoperatively when she started experiencing some generalized malaise this past weekend, along with decreased appetite. She then started to experience nausea and emesis yesterday evening in addition to fairly intense left-sided flank pain, both of which persisted through this morning. She then developed a temperature of 101 degrees Fahrenheit at home this morning and also noticed that her urine had become cloudy. She presented to [facility] earlier today and was seen by the physician's employee relations assistant. She recommended the patient present to the emergency room for further evaluation and probable admission. The patient was subsequently admitted. However, no imaging was performed through the emergency room. Therefore, I ordered a CT urogram on the patient, after reviewing her admission laboratory work and her clinical presentation with my physician employee relations assistant. CT scan results are noted below. Since admission, the patient has been more comfortable, but continues to have nausea and emesis with dry heaves. She denies any gross hematuria nor dysuria. She was taking a course of Keflex that she finished last weekend. This was prescribed through my office on 12/13 for a possible early developing wound infection. She finished this antibiotic approximately 5 days ago. PAST MEDICAL HISTORY: Notable for traumatic brain injury, depression, high cholesterol, asthma, hypothyroidism, history of recurrent nephrolithiasis, seizure disorder, left ureteropelvic junction obstruction. PAST SURGICAL HISTORY: Includes above-mentioned robotically-assisted left dismembered pyeloplasty with ureteral stent placement on 12/05/2017, prior ureteroscopy and laser lithotripsy for calculus disease, extracorporeal shock wave lithotripsy for renal calculus disease, knee surgery, Roby fundoplication many years ago. ADMISSION MEDICATIONS: Include Cytomel 5 mcg daily, Effexor XR 75 mg daily, Keppra, levothyroxine 88 mcg daily. ALLERGIES: Cipro causes hives and difficulty breathing. Penicillin causes hives. Sulfa causes hives. FAMILY HISTORY: Noncontributory. SOCIAL HISTORY: The patient is and lives in the [place] area. She is retired. She has an approximately 20-30 pack-year smoking history from use prior to age 37. She consumes an occasional alcoholic drink once weekly. REVIEW OF SYSTEMS: Unremarkable, other than mentioned above in the HPI and past medical history. PHYSICAL EXAM: GENERAL: Obese white female lying supine in bed, in no acute distress presently. VITAL SIGNS: Blood pressure 147/80, pulse 92, respirations 18, oxygen saturations 89% on room air, temperature 37.2 Celsius. This compares to 37.6 Celsius in the emergency room and 100.8 degrees Fahrenheit earlier today in my office. Height 162 cm, weight 83.9 kg, BMI 31. HEENT: Normocephalic, atraumatic. NECK: Supple. HEART: Regular rate. CHEST : Unlabored respiratory pattern. ABDOMEN: Chronically obese without any protuberance changes from baseline. Robotic pyeloplasty surgical incisions are healing appropriately without evidence of cellulitis. She is slightly tender in the left upper quadrant. No peritoneal signs nor involuntary guarding. BACK : Mild left CVA tenderness to percussion. EXTREMITIES: Warm without cyanosis , clubbing, or significant edema. VASCULAR: Normal femoral, dorsalis pedis, and posterior tibial pulses bilaterally. NEUROLOGIC: She is alert and oriented. She answers all questions appropriately with normal mood and affect. RADIOGRAPHIC STUDIES: CT urogram today: Upon my review, and upon discussion with Dr. Munoz, the patient's right kidney is unremarkable. Left kidney notes prompt perfusion and drainage. There does appear to be moderate left hydronephrosis. Left ureteral stent appears to be in good position, coursing from the kidney down to the bladder. There does appear to be an approximately 9 x 7 cm fluid collection anterior and slightly medial to the left kidney and renal hilum. Delayed imaging reveals extravasation of contrast from the region of the renal pelvis that drains into this fluid collection. There is some perinephric stranding also noted on the left side that extends down along the psoas in a caudal fashion. LABORATORY: CBC today notable for white blood cell count 20,000, hemoglobin 10.8, hematocrit 33.4, platelet count 536. Basic metabolic panel today is normal, creatinine 0.8. Admission urinalysis notable for 50-182 red blood cells , 50-182 white blood cells, and 1+ bacteria. Urine and blood cultures have been collected. IMPRESSION: 1. Urine leak from left renal pelvis, status post robotically-assisted left dismembered pyeloplasty and ureteral stent placement on 12/05/2017. 2. 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 3. Probable urinary tract infection, either involving her left kidney and/or urinoma. I had an extensive discussion this evening with the patient regarding her clinical situation. All questions were answered. She is currently not toxic. PLAN: 1. Place indwelling Landon this evening to minimize retrograde urine flow through the stent and into the left kidney. 2. Placement of left-sided percutaneous nephrostomy tube tomorrow through Interventional Radiology to minimize urine drainage from the left renal collecting system and specifically left pelvis. 3. Percutaneous drainage of urinoma tomorrow as well by Interventional Radiology. 4. Continue broad-spectrum IV antibiotics for now. 5. Hold all low molecular weight heparin and other anticoagulants until completion of tomorrow's procedures. The patient has also been made n.p.o. in preparation for procedures tomorrow. 6. Continue existing indwelling left ureteral stent drainage as well. I have also reviewed the case with Dr. Agosto from Interventional Radiology this evening. Thank you for this consultation. /[id number]/MODL MTDD
[2017-12-26 09:55] LABS: INR 1.23 (0.83-1.16); PROTIME(PATIENT) 15.7 SEC (12.0-15.0)
[2017-12-26] MEDS: HYDROmorphONE/DILAUDID 1 MG/ML INJ IVP PRN ×2 (11:16→13:15)
[2017-12-26] MEDS ORDERED: SUCCINYLCHOLINE CHLORIDE 200 MG/10 ML VIAL ONE (15:21)
[2017-12-26] MEDS ORDERED: PROPOFOL/EMULSION 500 MG/50 ML BOTTLE IV ONE (15:27)
[2017-12-26] MEDS ORDERED: LIDOCAINE 1% 300 MG/30 ML SDV ONE (15:29)
--- NOTE | 2017-12-26 15:35 | HOSPPROG ---
Hospitalist Progress Note Assessment/Plan: 67 yo F with hx of UPJ obstruction with severe left hydro s/p stent placement pw post op urine leak and UTI # complicated uti: in setting of recently placed ureteral stent with possible infected urinoma as well. Started on ctx with cultures pending but initial results with GNR. # urinoma/continued urine leak: from left renal pelvis and urine noted from renal pelvis to pancreatic tail and involving the psoas as well on personal review of abd/pelvis CT from yesterday. Plan is for IR drainage today. # left sided hydronephrosis: increased somewhat from prior, plan for perc neph tube by IR today for this and to decompress renal pelvis and leak # hx of TBI # seizure d/o: continue keppra # IP status, will need > 48 hours for eval/mgmt of above Patient new to my care. Old records reviewed and summarized as aboe. Subjective: no significant overnight events, feels nauseated, pain remains relatively severe Objective: Vital Signs Temp Pulse Resp BP Pulse Ox 37.4 C 81 16 130/63 H 90 L 12/26/17 15:25 12/26/17 15:25 12/26/17 15:25 12/26/17 15:25 12/26/17 15:25 Laboratory Results 12/26/17 04:48 12/26/17 04:48 12/25/17 12/26/17 12/27/17 05:59 05:59 05:59 Intake Total 2100 Output Total 1130 Balance 970 PT 15.7 SEC (12.0-15.0) H 12/26/17 09:40 INR 1.23 (0.83-1.16) H 12/26/17 09:40 awake alert nad anicteric op clear rrr no mrg cta b to ant exam obese, soft, + bs no cce warm dry well perfused oriented appropriate - Time Spent With Patient Time Spent with Patient: greater than 35 minutes Time Spent with Patient: Greater than 35 minutes spent on this patients care, greater than 50% of time spent counseling, educating, and coordinating care regarding the above mentioned plan. ICD10 Worksheet Patient Problems: Problems Problem Status Onset Ureteropelvic junction (UPJ) obstruction, left Acute Pyelonephritis Acute
--- NOTE | 2017-12-26 15:43 | PDANEPAE ---
ANE History of Present Illness CT guided drainage of abscess left flank ANE Past Medical History - Cardiovascular History Hx Hypertension: No Hx Arrhythmias: No Hx Chest Pain: No Hx Coronary Artery / Peripheral Vascular Disease: No Hx CHF / Valvular Disease: No Hx Palpitations: No - Pulmonary History Hx COPD: No Hx Asthma/Reactive Airway Disease: Yes Hx Recent Upper Respiratory Infection: No Hx Oxygen in Use at Home: Yes O2 in Use at Home (L/minute): 2 Hx Sleep Apnea: Yes Sleep Apnea Screening Result - Last Documented: Positive Pulmonary History Comment: upper resp infections and colds trigger asthma - Neurologic History Hx Cerebrovascular Accident: No Hx Seizures: Yes Hx Dementia: No Neurologic History Comment: LAST SEIZURE OVER A YEAR AGO - Endocrine History Hx Diabetes: No Obesity: mild - Renal History Hx Renal Disorders: No Renal History Comment: KIDNEY STONES - Liver History Hx Hepatic Disorders: No - Neurological & Psychiatric Hx Hx Neurological and Psychiatric Disorders: Yes Neurological / Psychiatric History Comment: TBI 15ys ago - Cancer History Hx Cancer: Yes Cancer History Comment: cancerous tissue removed - Congenital Disorder History Hx Congenital Disorders: No - GI History GERD: no Hx Gastrointestinal Disorders: Yes Gastrointestinal History Comment: fundaplication 25 yrs ago - Other Health History Other Health History: dentures uppers. front tooth temporary - Chronic Pain History Chronic Pain: Yes (right knee) - Surgical History Prior Surgeries: left rotator cuff repair. 2 cystoscopies jun 28,aug 29 ANE Review of Systems Review of Systems: - Exercise capacity METS (RN): 4 METS ANE Patient History - Allergies Allergies/Adverse Reactions: ciprofloxacin [From Cipro] Allergy (Mild, Verified 12/25/17 12:45) Rash Penicillins Allergy (Mild, Verified 12/25/17 12:45) Rash Sulfa (Sulfonamide Antibiotics) Allergy (Mild, Verified 12/25/17 12:45) Rash BEE STINGS Allergy (Unknown, Uncoded 12/05/17 10:29) - Home Medications Home medications: home medication list seen and reviewed Home Medications: Albuterol [Proventil Inhaler HFA (*)] 1 - 2 puffs IH DAILY PRN 11/12/17 [Last Taken 12/05/16] Cholecalciferol Vit D3 [Vitamin D3 (*)] 5,000 units PO DAILY 11/12/17 [Last Taken 12/25/17] Levothyroxine [Synthroid 88 mcg (*)] 88 mcg PO DAILY06 11/12/17 [Last Taken ] Liothyronine Sodium [Cytomel 5 mcg (*)] 5 mcg PO DAILY 11/12/17 [Last Taken ] levETIRAcetam [Keppra 500 mg (*)] 1,000 mg PO BID 12/05/17 [Last Taken 12/25/17] Herbals/Supplements -Info Only 1 ea PO DAILY 12/25/17 [Last Taken Unknown] Ibuprofen [Motrin (*)] 200 mg PO DAILY PRN 12/25/17 [Last Taken Unknown] - NPO status NPO Status: no food or drink >8 hours NPO Since - Liquids (Date): 12/26/17 NPO Since - Liquids (Time): 00:00 NPO Since - Solids (Date): 12/26/17 NPO Since - Solids (Time): 00:00 - Anes Hx Anes Hx: no prior problems - Smoking Hx Smoking Status: Former smoker Marijuana use: Yes - Alcohol Use Alcohol Use: Occasionally - Family Anes Hx Family Anes Hx: none Family Hx Anesthesia Complications: none ANE Labs/Vital Signs - Labs Result Diagrams: 12/26/17 04:48 12/26/17 04:48 - Vital Signs Blood Pressure: 130/63 Heart Rate: 81 Respiratory Rate: 16 O2 Sat (%): 90 Height: 162.56 cm Weight: 83.915 kg ANE Physical Exam - Airway Neck exam: FROM Mallampati Score: Class 2 Mouth exam: normal dental/mouth exam - Pulmonary Pulmonary: no respiratory distress - Cardiovascular Cardiovascular: regular rate and rhythym - ASA Status ASA Status: III ANE Anesthesia Plan Anesthesia Plan: general endotracheal anesthesia
[2017-12-26] MEDS ORDERED: SUCCINYLCHOLINE CHLORIDE 200 MG/10 ML VIAL IVP ONE (15:45)
[2017-12-26] MEDS ORDERED: ROCURONIUM 100 MG/10 ML VIAL IVP ONE (15:45)
[2017-12-26] MEDS ORDERED: MIDAZOLAM 2 MG/2 ML VIAL ONE (15:53)
[2017-12-26] MEDS ORDERED: fentaNYL 250 MCG/5 ML INJ ONE (15:55)
--- NOTE | 2017-12-26 16:24 | ASMTCMCOM ---
CM Note CM Note Notes: Reviewed chart. Pt had neph tube placed today. Pt lives at home independantly, does have hx of TBI. Anticipate dc home independantly when medically stable. CM available if needs arise. CM will follow. Date Signed: 12/26/2017 04:24 PM Electronically Signed By:Edwina Chavez RN
--- NOTE | 2017-12-26 16:40 | PDMN ---
Medical Necessity Medical necessity: Patient meets [place] criteria [place] [facility] [place] [place] (urine + for GNR/proteus mirabilis, history of UPJ obstruction with severe L hydro s/p stent placement, presenting with complicated UTI/poss infected urinoma as well; LOS will be > 2 midnights for ongoing IV hydration, IV antibiotics, pending IR- guided perc nephrostomy tube placement.)
[2017-12-26] MEDS ORDERED: IOPAMIDOL (ISOVUE-300) 100 ML BTL ONE (17:35)
[2017-12-26] MEDS ORDERED: SUGAMMADEX SODIUM 200 MG/2 ML VIAL IVP ONE ×2 (18:10→18:17)
[2017-12-26] MEDS ORDERED: ONDANSETRON 4 MG/2 ML VIAL ONE (18:10)
[2017-12-26] MEDS ORDERED: NALOXONE HCL 0.4 MG/ML INJ IVP PRN (18:49)
[2017-12-26] MEDS ORDERED: HYDROmorphONE/DILAUDID 2 MG/ML INJ IVP PRN (18:49)
[2017-12-26] MEDS ORDERED: PHENYLEPHRINE HCL 100 MCG/ML SYR IVP PRN (18:49)
--- NOTE | 2017-12-26 18:51 | POSTANESTH ---
Post Anesthetic Evaluation Cardiovascular Status: Normal, Stable Respiratory Status: Normal, Stable Level of Consciousness/Mental Status: Can Participate in Eval Pain Control: Adequate, Prn Tx Ordered Nausea/Vomiting Control: Adequate, Prn Tx Ordered Complications Possibly Related to Anesthesia: None Noted
[2017-12-26] MEDS ORDERED: fentaNYL 100 MCG/2 ML INJ ONE (19:00)
[2017-12-26] MEDS: fentaNYL 100 MCG/2 ML INJ IVP PRN ×4 (19:01→19:44)
[2017-12-27] MEDS: oxyCODONE IR 5 MG TAB PO PRN ×6 (00:43→21:15)
[2017-12-27] MEDS: LEVOTHYROXINE 88 MCG TAB PO SCH (04:58)
[2017-12-27 06:04] LABS: PLATELET COUNT 384 10^3/uL (150-400)
[2017-12-27] MEDS: VENLAFAXINE XR 75 MG CAP PO SCH (08:23)
[2017-12-27] MEDS: LIOTHYRONINE SODIUM 5 MCG TAB PO SCH (08:24)
[2017-12-27] MEDS: levETIRAcetam 500 MG TAB PO SCH ×2 (08:24→21:15)
[2017-12-27] MEDS ORDERED: ENOXAPARIN 40 MG/0.4 ML SYR SC SCH (09:00)
[2017-12-27] MEDS: FLUCONAZOLE 100 MG TAB PO SCH (15:01)
--- NOTE | 2017-12-27 17:47 | HOSPPROG ---
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 Started on ctx with cultures pending but initial results with proteus and kin, continued on ctx and added fluconazole per ID # urinoma/continued urine leak: from left renal pelvis and urine noted from renal pelvis to pancreatic tail and involving the psoas as well on personal review of abd/pelvis CT from yesterday. s/p IR drainage with drain in place. # left sided hydronephrosis: increased somewhat from prior, s/p perc neph tube # hx of TBI # seizure d/o: continue keppra # IP status, will need > 48 hours for eval/mgmt of above care plan reviewed with ID Subjective: no signficnat overnight events, patient having significant pain today, not much appetite Objective: Vital Signs Temp Pulse Resp BP Pulse Ox 36.7 C 85 18 144/75 H 96 12/27/17 15:56 12/27/17 15:56 12/27/17 15:56 12/27/17 15:56 12/27/17 15:56 Microbiology 12/26/17 18:00 Gram Stain - Final Other - Aspirate 12/26/17 19:28 Gram Stain - Final Other - Aspirate 12/26/17 19:28 Mycobacterial Smear (COLLEEN) - Final Other - Aspirate 12/26/17 18:00 Mycobacterial Smear (COLLEEN) - Final Other - Aspirate Laboratory Results 12/27/17 05:10 12/27/17 05:10 12/26/17 12/27/17 12/28/17 05:59 05:59 05:59 Intake Total 2100 2920 Output Total 1130 1035 400 Balance 970 1885 -400 PT 15.7 SEC (12.0-15.0) H 12/26/17 09:40 INR 1.23 (0.83-1.16) H 12/26/17 09:40 awake alert nad anicteric op clear rrr no mrg cta b to ant exam obese, soft, + bs no cce warm dry well perfused oriented appropriate ICD10 Worksheet Patient Problems: Problems Problem Status Onset Pyelonephritis Acute Ureteropelvic junction (UPJ) obstruction, left Acute
--- NOTE | 2017-12-27 18:18 | SOAPPROG ---
SOAP Progress Note Assessment/Plan: Assessment: 1. Urine leak from left renal pelvis w/ resulting urinoma, s/p robotic left dismembered pyeloplasty & ureteral stent placement on 12/05. Nephrostomy tube and urinoma drain placed yesterday. Per verbal nursing communication, there has only been ~ 25 cc of total urinoma drain output since placement. 2. Complicated UTI involving either left kidney, urinoma, or both. She is not toxic. Also noted to have Jaylene growing from urinoma specimen. 3. Abdominal distension - most likely ileus. Plan: 1. Continue maximum urinary diversion from left renal pelvis/UPJ w/ Landon catheter & left percutaneous nephrostomy. Anticipate leaving these in for about 1 week then performing antegrade nephrostogram to assess for residual urine leak. 2. Continue percutaneous urinoma drain. Will repeat CT on Saturday to reassess urinoma status. 3. Continue antibiotics and antifungals as per ID. Appreciate Dr. Raya' assistance. 4. Change diet to sips and chips, restart IVF's, and obtain plain film abdominal x-rays this evening. I had an extensive discussion w/ the pt. outlining all of the above. Subjective: Complains of abdominal distention (but without N/V) and pain at urinoma drain entrance site. + flatus. Has drank > 1.5 L of water today. She is also ambulating. Objective: Vital Signs Temp Pulse Resp BP Pulse Ox 36.7 C 85 18 144/75 H 96 12/27/17 15:56 12/27/17 15:56 12/27/17 15:56 12/27/17 15:56 12/27/17 15:56 Microbiology 12/26/17 18:00 Gram Stain - Final Other - Aspirate 12/26/17 19:28 Gram Stain - Final Other - Aspirate 12/26/17 19:28 Mycobacterial Smear (COLLEEN) - Final Other - Aspirate 12/26/17 18:00 Mycobacterial Smear (COLLEEN) - Final Other - Aspirate Laboratory Results 12/27/17 05:10 12/27/17 05:10 12/26/17 12/27/17 12/28/17 05:59 05:59 05:59 Intake Total 2100 2920 Output Total 1130 1035 400 Balance 970 1885 -400 PT 15.7 SEC (12.0-15.0) H 12/26/17 09:40 INR 1.23 (0.83-1.16) H 12/26/17 09:40 Physical Exam - Physical Exam General Appearance: WD/WN, alert, obese Abdomen: distended (moreso than normal. She normally has a very protuberant abdomen.), other (mild tenderness around urinoma site; port sites c/d/i) Back: Other (urine clear via neph. tube & Landon) Skin: normal color, warm/dry Neuro/Psych: alert, normal mood/affect, oriented x 3 ICD10 Worksheet Patient Problems: Problems Problem Status Onset Pyelonephritis Acute Ureteropelvic junction (UPJ) obstruction, left Acute
[2017-12-27] MEDS: D5W NS 1,000 ML IV SCH (19:20)
--- NOTE | 2017-12-27 19:29 | GCON ---
[f rep st] CONSULTATION INFECTIOUS DISEASE CONSULTATION DATE OF CONSULTATION: 12/27/2017 Physician requesting consultation is Susana Pedraza. REASON FOR CONSULTATION: Jaylene, pyelonephritis. HISTORY OF PRESENT ILLNESS: A 67-year-old woman whose pertinent past medical history includes recurrent nephrolithiasis on the left, who recently had 2 stones removed in August of 2017, and she was discovered to have urethral narrowing. This was surgically managed on 12/05/2017, with a robotically- assisted laparoscopic left dismembered pyeloplasty with ureteral stent placement. Initially, patient did well postoperatively, but around 12/22, developed abdominal distention and pain, fatigue, anorexia, cloudy urine, and a fever to 101. She also developed low back pain at that time. Patient underwent a CT urogram, which showed a urine leak in the left renal pelvis with a left perinephric urinoma and evidence of probable urinary tract infection involving the left kidney and urinoma based on CT findings. Subsequently, patient underwent IR drainage of the urinoma and a percutaneous nephrostomy tube placement on 12/26/2017, drainage from kidney was purulent. The Gram stain of the urinoma was positive for yeast. The patient also had urine cultures obtained on admission that subsequently grew 20,000 Proteus, park susceptible, except resistant to tetracycline and nitrofurantoin. The patient reports some clinical improvement since admission but still has some abdominal pain and distention. She also describes malaise. Her creatinine has been normal throughout her hospital course and she has had a significant improvement of leukocytosis. PAST MEDICAL HISTORY: Positive for a traumatic brain injury 15 years ago, depression, high cholesterol, asthma, hypothyroidism, recurrent nephrolithiasis , seizure disorder due to brain injury. FAMILY HISTORY: Positive for heart disease. She has 2 healthy adult children. SOCIAL HISTORY: . 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 Remote smoking history. Occasional alcohol. ALLERGIES: Cipro, penicillin, and sulfa cause hives, but no airway issues. MEDICATIONS: Ceftriaxone 1 g IV daily x3 days. REVIEW OF SYSTEMS: A complete 10-point review of systems was performed and is negative, except as mentioned in the HPI. The patient also describes shortness of breath due to pressure from her abdomen. She denies any vaginal discharge or recent use of Diflucan. RECENT ANTIBIOTIC HISTORY REVIEW: Since June of last year, patient has received 5 courses of antibiotics. What she can remember includes levofloxacin , clindamycin, and Macrobid. PHYSICAL EXAM: VITAL SIGNS: Blood pressure 144/75, heart rate 85, respiratory rate 18, saturation 96% on 3 L, temperature 36.7. GENERAL: This is a pleasant , nontoxic-appearing woman with fluent speech, sitting up in a chair. HEENT: Pupils are reactive bilaterally. Oropharynx, good dentition. Moist mucous membranes. NECK: Supple. No lymphadenopathy. CARDIOVASCULAR: Regular rate and rhythm. No murmurs. CHEST: Clear to auscultation bilaterally. ABDOMEN: Distended. Bowel sounds were hyperactive. She had a more anterior drain in place for urinoma, and a left flank nephrostomy tube, and a Landon in place - all with clear urine. Incisions are healing well with some mild pinkness surrounding them. EXTREMITIES: Trace pretibial edema. NEUROLOGICAL: She is moving all 4 extremities equally. SKIN: No rashes. She is moderately pale. LINES: She has a PICC line in place in her right upper extremity. LABORATORY: White count 13.4, initial 20. Hematocrit 25, platelets of 284, down from 536; 85% neutrophils, 6.9% lymphocytes. Creatinine 0.6, AST 22, ALT 39, albumin 2.6. Urinalysis on admission showed 3+ leukocyte esterase, 50-182 RBCs, 50-182 WBCs. Blood cultures 12/25/2017 are no growth to date. IMAGING: As per HPI. ASSESSMENT AND PLAN: 67-year-old woman with recurrent nephrolithiasis and urethral stenosis, who underwent surgical management of urethral stenosis, course now complicated by postoperative infection consistent with Jaylene albicans pyelonephritis and infected urinoma, now with drains in place. Cultures are showing Jaylene albicans. Typically recommended to use echinocandin until susceptibilities of Jaylene albicans are available, but because of infection in the kidney, I would lean toward utilization of an azole due to improved kidney penetration compared to micafungin. Start fluconazole 400mg PO Daily, PO adequate due to equal GI and IV absorption. Luckily patient does not demonstrate evidence of candidemia at this time with negative blood cultures. Reasonable to continue ceftriaxone for positive culture for Proteus from urine sample from bladder but, this is of unclear significance. Duration of yeast coverage to be determined. Thank you for this consultation. We will continue to see patient on a daily basis. Time 85 min >50% time spent with education and counseling reviewing lab findings , planned therapies and side effects. Care coordinated with Kimberly Swann and Surendra /[id number]/MODL MTDSaul
[2017-12-28] MEDS: oxyCODONE IR 5 MG TAB PO PRN ×3 (03:54→18:09)
[2017-12-28] MEDS: D5W NS 1,000 ML IV SCH ×2 (05:20→16:24)
[2017-12-28] MEDS: ONDANSETRON 4 MG/2 ML VIAL IVP PRN ×3 (05:20→19:48)
[2017-12-28] MEDS: LEVOTHYROXINE 88 MCG TAB PO SCH (05:27)
[2017-12-28] MEDS: VENLAFAXINE XR 75 MG CAP PO SCH (08:15)
[2017-12-28] MEDS: LIOTHYRONINE SODIUM 5 MCG TAB PO SCH (08:15)
[2017-12-28] MEDS: FLUCONAZOLE 100 MG TAB PO SCH (08:16)
[2017-12-28] MEDS: levETIRAcetam 500 MG TAB PO SCH ×2 (08:16→20:00)
--- NOTE | 2017-12-28 11:28 | PCMIDPN ---
Assessment/Plan: #Post op infected urinoma and pyelonephritis due to Jaylene, s/p robotic left pyeloplasty & ureteral stent placement on 12/05. 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: jaylene albicans urine from bladder: 20K proteus blood cx (2) NGTD Subjective: patient with low appetite still feels like there is abdominal distension +flatus Objective: Vital Signs Temp Pulse Resp BP Pulse Ox 36.6 C 64 16 114/60 100 12/28/17 08:51 12/28/17 08:51 12/28/17 08:51 12/28/17 08:51 12/28/17 08:51 Microbiology 12/26/17 18:00 Gram Stain - Final Other - Aspirate 12/26/17 19:28 Gram Stain - Final Other - Aspirate 12/26/17 19:28 Mycobacterial Smear (COLLEEN) - Final Other - Aspirate 12/26/17 18:00 Mycobacterial Smear (COLLEEN) - Final Other - Aspirate Laboratory Results 12/28/17 10:55 12/27/17 05:10 12/27/17 12/28/17 12/29/17 05:59 05:59 05:59 Intake Total 2920 Output Total 1035 1085 Balance 1885 -1085 - Physical Exam General Appearance: alert, no apparent distress EENT: pale conjunctiva Respiratory: lungs clear, No accessory muscle use Cardiac/Chest: regular rate, rhythm Extremities: pedal edema (trace pre-tibial) Abdomen: non-tender, soft, distended, No normal bowel sounds (bowel sound slightly decreased but present), No rebound, No peritoneal signs Skin: pallor, No rash Neuro/Psych: no motor/sensory deficits, alert, normal mood/affect, oriented x 3 - Time Spent With Patient Time Spent with Patient: greater than 35 minutes (care coordinated with Dr. Denise) Time Spent with Patient: Greater than 35 minutes spent on this patients care, greater than 50% of time spent counseling, educating, and coordinating care regarding the above mentioned plan. ICD10 Worksheet Patient Problems: Problems Problem Status Onset Pyelonephritis Acute Ureteropelvic junction (UPJ) obstruction, left Acute
--- NOTE | 2017-12-28 13:28 | SOAPPROG ---
SOAP Progress Note Assessment/Plan: Assessment: feeling better, ileus Plan: suppository, ambulate 12/28/17 13:26 Objective: Vital Signs Temp Pulse Resp BP Pulse Ox 36.8 C 73 16 142/70 H 98 12/28/17 11:46 12/28/17 11:46 12/28/17 11:46 12/28/17 11:46 12/28/17 11:46 Microbiology 12/26/17 19:28 Gram Stain - Final Other - Aspirate 12/26/17 18:00 Gram Stain - Final Other - Aspirate 12/26/17 19:28 Mycobacterial Smear (COLLEEN) - Final Other - Aspirate 12/26/17 18:00 Mycobacterial Smear (COLLEEN) - Final Other - Aspirate Laboratory Results 12/28/17 10:55 12/27/17 05:10 12/27/17 12/28/17 12/29/17 05:59 05:59 05:59 Intake Total 2920 Output Total 1035 1085 Balance 1885 -1085 PT 15.7 SEC (12.0-15.0) H 12/26/17 09:40 INR 1.23 (0.83-1.16) H 12/26/17 09:40 abdomen is distended, ext NT ICD10 Worksheet Patient Problems: Problems Problem Status Onset Pyelonephritis Acute Ureteropelvic junction (UPJ) obstruction, left Acute
[2017-12-28] MEDS ORDERED: BISACODYL 10 MG SUPP PR ONE (14:00)
--- NOTE | 2017-12-28 15:49 | HOSPPROG ---
Hospitalist Progress Note Assessment/Plan: Subjective Follow-up on complicated UTI in urinoma. Also follow-up on ileus. Patient states she is passing gas but no bowel movement in the prior days. I did review her case with Dr. Alvarado today and we will try a Dulcolax suppository. Patient is without any new complaints today. Objective Vital signs Temperature 36.8 blood pressure 142/70 heart rate 73 respirations 16 satting 98 % 3 L nasal cannula Physical exam General-patient is sitting in chair at the bedside awake alert conversant no acute distress. Heart-regular rate and rhythm no murmurs appreciated Lungs-Clear to auscultation normal respiratory effort Abdomen-nephrostomy drain in urinoma drains in place with serosanguineous fluid. Moderately firm with abdominal palpation. Normal bowel sounds Landon catheter in place Extremities-no significant pitting edema Musculoskeletal no calf pain with palpation Labs as detailed below Assessment and Plan 1. Complicated urinary tract infection-patient is status post nephrostomy tube as well as urinoma drain. Cultures have grown out Jaylene albicans. I have reviewed the case with Dr. Raya with Infectious Disease and will continue with fluconazole. Ceftriaxone was also being continued to cover Proteus. 2. Ileus-patient has a persistent ileus by x-ray imaging. She does not feel hungry. She is passing flatus. A Dulcolax suppository was prescribed today and we could consider using this daily as needed. Repeat CT scan has been ordered tomorrow since been opportunity reassess by CT imaging. 3. History of traumatic brain injury 4. Seizure disorder-patient is on Keppra 5. Chronic hypoxic respiratory failure- consult she has been diagnosed with obstructive sleep apnea and is on CPAP therapy at home. She may also have obesity hypoventilation syndrome as she is on oxygen continuously during the daytime as well. She is at her current baseline oxygen need. 6. DVT prophylaxis- I think lower risk as patient is ambulating. I observed her ambulating with nursing staff in the hospital today. 7. Disposition-continue working with PT and OT and will discuss with case management the need for placement. Objective: Vital Signs Temp Pulse Resp BP Pulse Ox 36.8 C 73 16 142/70 H 98 12/28/17 11:46 12/28/17 11:46 12/28/17 11:46 12/28/17 11:46 12/28/17 11:46 Microbiology 12/26/17 18:00 Gram Stain - Final Other - Aspirate 12/26/17 19:28 Gram Stain - Final Other - Aspirate 12/26/17 19:28 Mycobacterial Smear (COLLEEN) - Final Other - Aspirate Laboratory Results 12/28/17 10:55 12/27/17 05:10 12/27/17 12/28/17 12/29/17 05:59 05:59 05:59 Intake Total 2920 Output Total 1035 1085 Balance 1885 -1085 PT 15.7 SEC (12.0-15.0) H 12/26/17 09:40 INR 1.23 (0.83-1.16) H 12/26/17 09:40 ICD10 Worksheet Patient Problems: Problems Problem Status Onset Pyelonephritis Acute Ureteropelvic junction (UPJ) obstruction, left Acute
[2017-12-29] MEDS: oxyCODONE IR 5 MG TAB PO PRN ×4 (02:37→20:19)
[2017-12-29] MEDS: ONDANSETRON 4 MG/2 ML VIAL IVP PRN ×2 (02:37→09:40)
[2017-12-29] MEDS: D5W NS 1,000 ML IV SCH ×2 (02:39→16:19)
[2017-12-29] MEDS: LEVOTHYROXINE 88 MCG TAB PO SCH (05:26)
[2017-12-29] MEDS ORDERED: BISACODYL 10 MG SUPP PR PRN (08:07)
[2017-12-29] MEDS: FLUCONAZOLE 100 MG TAB PO SCH (08:37)
[2017-12-29] MEDS: LIOTHYRONINE SODIUM 5 MCG TAB PO SCH (08:37)
[2017-12-29] MEDS: levETIRAcetam 500 MG TAB PO SCH ×2 (08:38→20:19)
[2017-12-29] MEDS: VENLAFAXINE XR 75 MG CAP PO SCH (08:38)
--- NOTE | 2017-12-29 11:16 | PCMIDPN ---
Assessment/Plan: #Post op infected urinoma and pyelonephritis due to Jaylene, s/p robotic left pyeloplasty & ureteral stent placement on 12/05. WBC normalized yesterday. Reviewed CT with radiology, urinoma resolved on CT --continue fluconazole 400mg PO daily --requested sensi on jaylene --plan 2 weeks of therapy for fluconazole #Possible Proteus UTI/bladder infection, plan 7 days antibiotic continue ceftriaxone for now meds ceftriaxone 1gm IV daily #5 fluconazole 400mg PO daily #3 Micro urinoma: Jaylene albicans L kidney: jaylene albicans urine from bladder: 20K proteus blood cx (2) NGTD Subjective: BM today but abdomen still tight still low appetite Objective: Vital Signs Temp Pulse Resp BP Pulse Ox 36.7 C 64 16 142/77 H 100 12/29/17 07:50 12/29/17 07:50 12/29/17 07:50 12/29/17 07:50 12/29/17 07:50 Microbiology 12/26/17 19:28 Gram Stain - Final Other - Aspirate 12/26/17 18:00 Gram Stain - Final Other - Aspirate 12/26/17 19:28 Mycobacterial Smear (COLLEEN) - Final Other - Aspirate Laboratory Results 12/28/17 10:55 12/27/17 05:10 12/28/17 12/29/17 12/30/17 05:59 05:59 05:59 Intake Total 2230 Output Total 1085 960 Balance -1085 1270 - Physical Exam General Appearance: alert, no apparent distress EENT: No thrush Respiratory: other (decreased bs in bases, poor inspiratory effort), No accessory muscle use Neck: supple Cardiac/Chest: regular rate, rhythm Extremities: pedal edema (trace pretibial) Abdomen: non-tender, distended, other (multiple drains, nephrostomy and one it urinoma) Pelvic Exam: roberts Skin: pallor, No rash Neuro/Psych: alert, normal mood/affect, oriented x 3 - Line/s RUE PICC Lines: No drainage, No erythema - Time Spent With Patient Time Spent with Patient: greater than 35 minutes (reviewed potential etiology of infection with patient) Time Spent with Patient: Greater than 35 minutes spent on this patients care, greater than 50% of time spent counseling, educating, and coordinating care regarding the above mentioned plan. ICD10 Worksheet Patient Problems: Problems Problem Status Onset Pyelonephritis Acute Ureteropelvic junction (UPJ) obstruction, left Acute
[2017-12-29] MEDS: PROMETHAZINE HCL 25 MG/ML INJ IVP PRN (11:22)
--- NOTE | 2017-12-29 13:01 | HOSPPROG ---
Hospitalist Progress Note Assessment/Plan: Subjective Follow-up on complicated urinary tract infection and ileus. Patient states that she did have a bowel movement this morning and feels much better in regards to her abdominal distention. No complaints of any fevers or chills. She had a CT scan of her abdomen pelvis this morning. I reviewed the results with Dr. Adames with Infectious Disease. No worrisome findings. Her urinoma drain seems to be draining better today than it was yesterday per her eyes and nose which I reviewed with the patient. Objective Vital signs Temperature 36.7 blood pressure is 142/77 heart rate 64 respirations 16 satting 100% 3.5 L nasal cannula Physical exam General-patient appears comfortable she is sitting in a chair at the bedside no acute distress awake alert conversant. Heart-regular rate and rhythm no murmurs noted Lungs-Clear to auscultation with normal respiratory effort Abdomen-nephrostomy drain and urinoma drains in place and appeared to be functioning appropriately. Softer abdominal exam as compared to yesterday. Normal bowel sounds -Landon catheter is in place with clear yellow urine Extremities-no significant pitting edema Labs as detailed below Assessment and plan 1. Complicated urinary tract infection-patient is status post nephrostomy tube as well as urinoma drain. Cultures have grown out Jaylene albicans and Proteus. Patient is currently on fluconazole for the Jaylene and ceftriaxone for the Proteus. I appreciate Infectious disease's assistance on the case. 2. Ileus-possibly resolved patient is passing flatus and had a bowel movement today. She does not feel particularly hungry but I think we can try clears and see how she does over the subsequent 24 hr. 3. Seizure disorder-patient is on Keppra. 4. History of traumatic brain injury 5. Chronic hypoxic respiratory failure-patient states he has been diagnosed with obstructive sleep apnea and is on CPAP therapy at home. She is on continuous oxygen so may have some element of hypo ventilation syndrome as well. She is at her baseline oxygen need. 6. DVT prophylaxis-low risk as ambulating. I would prefer to not use hyper lobe occipital need to in light of her current drains in place. 7. Disposition-continue work with PT and OT and anticipate need for short-term placement versus home with home health. Objective: Vital Signs Temp Pulse Resp BP Pulse Ox 36.7 C 64 16 142/77 H 100 12/29/17 07:50 12/29/17 07:50 12/29/17 07:50 12/29/17 07:50 12/29/17 07:50 Microbiology 12/26/17 19:28 Gram Stain - Final Other - Aspirate 12/26/17 18:00 Gram Stain - Final Other - Aspirate 12/26/17 19:28 Mycobacterial Smear (COLLEEN) - Final Other - Aspirate Laboratory Results 12/28/17 10:55 12/27/17 05:10 12/28/17 12/29/17 12/30/17 05:59 05:59 05:59 Intake Total 2230 Output Total 1085 960 Balance -1085 1270 PT 15.7 SEC (12.0-15.0) H 12/26/17 09:40 INR 1.23 (0.83-1.16) H 12/26/17 09:40 ICD10 Worksheet Patient Problems: Problems Problem Status Onset Pyelonephritis Acute Ureteropelvic junction (UPJ) obstruction, left Acute
--- NOTE | 2017-12-29 14:48 | SOAPPROG ---
SOAP Progress Note Assessment/Plan: Assessment: feeling better, ileus resolving---BM today Plan: advance diet as tolerated, ambulate 12/28/17 13:26 12/29/17 14:47 Objective: Vital Signs Temp Pulse Resp BP Pulse Ox 36.7 C 64 16 142/77 H 100 12/29/17 07:50 12/29/17 07:50 12/29/17 07:50 12/29/17 07:50 12/29/17 07:50 Microbiology 12/26/17 19:28 Gram Stain - Final Other - Aspirate 12/26/17 18:00 Gram Stain - Final Other - Aspirate 12/26/17 19:28 Mycobacterial Smear (COLLEEN) - Final Other - Aspirate Laboratory Results 12/28/17 10:55 12/27/17 05:10 12/28/17 12/29/17 12/30/17 05:59 05:59 05:59 Intake Total 2230 Output Total 1085 960 Balance -1085 1270 PT 15.7 SEC (12.0-15.0) H 12/26/17 09:40 INR 1.23 (0.83-1.16) H 12/26/17 09:40 ICD10 Worksheet Patient Problems: Problems Problem Status Onset Pyelonephritis Acute Ureteropelvic junction (UPJ) obstruction, left Acute
[2017-12-29] MEDS ORDERED: morphINE SR 30 MG TAB PO SCH (21:00)
[2017-12-29] MEDS ORDERED: oxyCODONE IR 5 MG TAB PO SCH (21:00)
[2017-12-30] MEDS: oxyCODONE IR 5 MG TAB PO PRN ×5 (02:30→21:25)
[2017-12-30] MEDS: D5W NS 1,000 ML IV SCH ×2 (05:08→13:14)
[2017-12-30] MEDS: LEVOTHYROXINE 88 MCG TAB PO SCH (05:08)
[2017-12-30] MEDS: ONDANSETRON 4 MG/2 ML VIAL IVP PRN (07:42)
--- NOTE | 2017-12-30 08:47 | SOAPPROG ---
SOAP Progress Note Assessment/Plan: Assessment: 1. Urine leak from left renal pelvis w/ resulting urinoma, s/p robotic left dismembered pyeloplasty & ureteral stent placement on 12/05. Nephrostomy tube and urinoma drain placed on 12/26. Minimal residual urinoma noted on 12/29 CT. However, yesterday's urinoma creatinine level of 5.7 is consistent w/ urine. Therefore, it's probably a good idea to keep this in. 2. Complicated UTI involving either left kidney, urinoma, or both. She is not toxic. Also noted to have Jaylene growing from urinoma specimen. 3. Abdominal distension - most likely ileus. Not much progress from this standpoint over the last 2-3 days. Plan: 1. Continue maximum urinary diversion from left renal pelvis/UPJ w/ Landon catheter & left percutaneous nephrostomy. Anticipate leaving these in for about 1 week then performing antegrade nephrostogram to assess for residual urine leak. 2. Continue percutaneous urinoma drain. 3. Continue antibiotics and antifungals as per ID. Appreciate Dr. Raya' assistance. 4. Continue CLD & IVF's. Consider repeating plain film abdominal x-rays, consider general surgery/GI consult. I have discussed all of the above w/ pt. this AM. 12/30/17 08:47 Subjective: Still w/ dry heaves intermittently, and unable to tolerate much CLD without associated vomiting. Feels her abdomen is slightly less distended compared to Saturday. Having flatus, had small BM after suppository on Saturday. Objective: Vital Signs Temp Pulse Resp BP Pulse Ox 36.6 C 82 16 137/75 H 88 L 12/30/17 08:00 12/30/17 08:00 12/30/17 08:00 12/30/17 08:00 12/30/17 08:00 Microbiology 12/26/17 18:00 Gram Stain - Final Other - Aspirate 12/26/17 19:28 Gram Stain - Final Other - Aspirate Laboratory Results 12/28/17 10:55 12/27/17 05:10 12/29/17 12/30/17 12/31/17 05:59 05:59 05:59 Intake Total 2230 800 50 Output Total 960 650 Balance 1270 150 50 PT 15.7 SEC (12.0-15.0) H 05/17/18 09:40 INR 1.23 (0.83-1.16) H 12/26/17 09:40 Physical Exam - Physical Exam General Appearance: alert, no apparent distress, obese Abdomen: distended (not rigid), other (tender in LUQ) Back: Other (Left CVA tenderness) Skin: warm/dry Extremities: non-tender, normal inspection Neuro/Psych: alert, normal mood/affect, oriented x 3 ICD10 Worksheet Patient Problems: Problems Problem Status Onset Pyelonephritis Acute Ureteropelvic junction (UPJ) obstruction, left Acute
[2017-12-30] MEDS: VENLAFAXINE XR 75 MG CAP PO SCH (09:50)
[2017-12-30] MEDS: LIOTHYRONINE SODIUM 5 MCG TAB PO SCH (09:50)
[2017-12-30] MEDS: FLUCONAZOLE 100 MG TAB PO SCH (09:50)
[2017-12-30] MEDS: levETIRAcetam 500 MG TAB PO SCH ×2 (09:50→20:23)
[2017-12-30] MEDS: PROMETHAZINE HCL 25 MG/ML INJ IVP PRN ×2 (09:56→21:25)
[2017-12-30] MEDS ORDERED: oxyCODONE IR 5 MG TAB PO SCH (12:00)
--- NOTE | 2017-12-30 13:30 | ASMTCMCOM ---
CM Note CM Note Notes: Chart reviewed. Met with patient to review plan of care. She is hoping to go home. She is agreeable to [facility] services should she require them, list of agencies provided. She is trying to ambulate and help resolve her ileus. Lives alone but has supportive friends. Needs still be determined.CM to follow. Plan: TBD Date Signed: 12/29/2017 01:22 PM Electronically Signed By:Rowan Cisneros RN
--- NOTE | 2017-12-30 13:39 | ASMTCMCOM ---
CM Note CM Note Notes: Chart reviewed. Discussed with Dr. Denise. Unclear as to need for home IV antibiotics. Met with patient to discuss her choice of home health care, she eludes to her wanting to speak to urology to see what his opinion is for her needs. She feels like she has too many physicians . CM to follow for needs. Per therapy [facility] recommended for minimum of safety eval. Plan: TBD Date Signed: 12/30/2017 01:37 PM Electronically Signed By:Rowan Cisneros RN
--- NOTE | 2017-12-30 16:19 | HOSPPROG ---
Hospitalist Progress Note Assessment/Plan: Subjective Follow-up on complicated urinary tract infection and ileus. The patient states that she drank some water this morning and became nauseated and regurgitated backup. However she stated later on the morning she had some cough and has done fine since that time. She continues to pass gas. She did have a bowel movement yesterday but nothing today. Otherwise no acute events overnight and she was able spent some time outside today. Objective Vital signs Temperature 36.6 blood pressure 137/75 heart rate 82 respirations 16 satting 80 % on room air Physical exam General-patient appears comfortable sitting in chair at the bedside. She does seem somewhat more lethargic today as compared to days prior. Heart-regular rate and rhythm no murmurs noted. Lungs-Clear to auscultation with normal respiratory effort Abdomen-nephrostomy drain and urinoma drains in place appeared to be functioning appropriately. Abdomen is non tense on exam with normal bowel sounds. -Landon catheter in place with clear yellow urine Extremities-slight edema of the hands noted today and possibly slightly more in her lower extremities as compared to this prior Labs as detailed below Assessment and plan 1. Complicated urinary tract infection-patient is status post nephrostomy tube as well as urinoma drain. She had prior pyeloplasty performed. Cultures have grown Jaylene albicans and Proteus. Patient is currently on fluconazole for the Jaylene and ceftriaxone for the Proteus. Infectious Disease is following along as well. 2. Ileus-this may be resolved. Abdominal imaging today does not show any persistent ileus nor did the CT scan from yesterday. However she did have some regurgitation of water this morning but has been able to hold down liquids since that time. I have adjusted her diet to clear liquids and to advance as tolerated. She really does not have much of an appetite possibly this is related to her infectious process. 3. Seizure disorder-patient is currently on Keppra no seizure activity during this hospitalization. 4. History of traumatic brain injury 5. Chronic hypoxic respiratory failure-patient states she has been diagnosed with obstructive sleep apnea and is currently on CPAP therapy at home. She has her home CPAP machine here with her in the hospital. She is on continuous oxygen during the daytime as well at 2 L. Possibly related to obesity hypoventilation syndrome. 6. Hypothyroidism-continue current dosing of levothyroxine. 7. Depression-continue current dosing of Effexor. 8. DVT prophylaxis-lower risk as patient is ambulating quite a bit. Compression devices while in bed. I would prefer to avoid hyper Lovenox in light of current drains in place. 9. Disposition-continue work with PT and OT and looking at potential discharge to home when ready with home health. Objective: Vital Signs Temp Pulse Resp BP Pulse Ox 36.8 C 65 19 147/75 H 91 L 12/30/17 15:29 12/30/17 15:29 12/30/17 15:29 12/30/17 15:29 12/30/17 15:29 Microbiology 12/26/17 18:00 Gram Stain - Final Other - Aspirate 12/26/17 18:00 Mycobacterial Smear (COLLEEN) - Final Other - Aspirate 12/26/17 19:28 Gram Stain - Final Other - Aspirate Laboratory Results 12/28/17 10:55 12/27/17 05:10 12/29/17 12/30/17 12/31/17 05:59 05:59 05:59 Intake Total 2230 800 50 Output Total 960 650 150 Balance 1270 150 -100 PT 15.7 SEC (12.0-15.0) H 12/26/17 09:40 INR 1.23 (0.83-1.16) H 12/26/17 09:40 ICD10 Worksheet Patient Problems: Problems Problem Status Onset Pyelonephritis Acute Ureteropelvic junction (UPJ) obstruction, left Acute
[2017-12-30] MEDS: SENNOSIDES 1 TAB PO SCH (20:23)
[2017-12-31] MEDS: D5W NS 1,000 ML IV SCH (02:55)
[2017-12-31] MEDS: LEVOTHYROXINE 88 MCG TAB PO SCH (05:19)
[2017-12-31 05:57] LABS: PLATELET COUNT 299 10^3/uL (150-400)
[2017-12-31] MEDS ORDERED: PROTOCOL POTASSIUM 1 DOSE MISC PRN (06:48)
--- NOTE | 2017-12-31 08:48 | PCMIDPN ---
Assessment/Plan: Assessment/Plan: Please note this is a late entry note for patient visit of 12/30/2017. * Candidal pyelonephritis status post nephrostomy and urinoma drainage: Clinically improved post drainage and with antimicrobial therapy. Plan 14 days of fluconazole. Has some nausea present which I suspect is unrelated to fluconazole as this preceded it is initiation. Isolate has been sent out for anti fungal susceptibility testing. * Possible Proteus UTI: Urine culture also showing growth of Proteus which did not grow from specimen obtained at time of nephrostomy placement. Completing 7 days of ceftriaxone which will end on 12/31/2017. End date was applied to this therapy today. 12/31/17 08:47 12/31/17 08:52 12/31/17 08:55 Subjective: Patient complains of nausea. Objective: Vital Signs Temp Pulse Resp BP Pulse Ox 36.9 C 62 16 136/80 H 91 L 12/31/17 04:24 12/31/17 04:24 12/31/17 04:24 12/31/17 04:24 12/31/17 04:24 Microbiology 12/26/17 18:00 Gram Stain - Final Other - Aspirate 12/26/17 18:00 Mycobacterial Smear (COLLEEN) - Final Other - Aspirate 12/26/17 19:28 Gram Stain - Final Other - Aspirate Laboratory Results 12/31/17 05:30 12/31/17 05:30 12/30/17 12/31/17 01/01/18 05:59 05:59 05:59 Intake Total 800 1800 Output Total 650 1655 Balance 150 145 Ceftriaxone # 6 Fluconazole # 4 - Physical Exam General Appearance: alert, no apparent distress EENT: No scleral icterus, No thrush Respiratory: lungs clear, No respiratory distress Cardiac/Chest: regular rate, rhythm Abdomen: non-tender, No distended Back: No CVA tenderness ICD10 Worksheet Patient Problems: Problems Problem Status Onset Pyelonephritis Acute Ureteropelvic junction (UPJ) obstruction, left Acute
[2017-12-31] MEDS: LIOTHYRONINE SODIUM 5 MCG TAB PO SCH (09:11)
[2017-12-31] MEDS: VENLAFAXINE XR 75 MG CAP PO SCH (09:11)
[2017-12-31] MEDS: FLUCONAZOLE 100 MG TAB PO SCH (09:14)
[2017-12-31] MEDS: levETIRAcetam 500 MG TAB PO SCH ×2 (09:14→20:13)
[2017-12-31] MEDS: oxyCODONE IR 5 MG TAB PO PRN (09:16)
[2017-12-31] MEDS: POLYETHYLENE GLYCOL 3350 17 GM PKT PO SCH (09:22)
--- NOTE | 2017-12-31 10:14 | HOSPPROG ---
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 Cultures grown Jaylene albicans and Proteus. -day 02/15 of ceftriaxone -cont po fluconazole, day 12/23 -cont roberts, perc tubes, close outpt f/u with Dr. Harris Ileus- improved, abdominal imaging yest reviewed, stable. No more vomiting. Tolerating toast this am. Seizure disorder-patient is currently on Keppra no seizure activity during this hospitalization. History of traumatic brain injury Chronic hypoxic respiratory failure- 2/2 [place], on CPAP therapy at home, cont here. On room air now. Hypothyroidism-continue current dosing of levothyroxine. Depression-continue current dosing of Effexor. DVT prophylaxis- SCD's, ambulation, pharm deferred with drains in place Disposition- continue PT and OT and looking at potential discharge to home when ready with home health, possibly tomorrow if tolerating po. Subjective: Pt doing better today. Was queasy with N/V yesterday, better today , taking some po. No fevers/chills. Good uop from roberts and perc tubes. Flank and abdominal pain improved. Last BM yesterday. Objective: Vital Signs Temp Pulse Resp BP Pulse Ox 36.9 C 72 17 162/70 H 90 L 12/31/17 09:03 12/31/17 09:03 12/31/17 09:03 12/31/17 09:03 12/31/17 09:03 Microbiology 12/26/17 18:00 Gram Stain - Final Other - Aspirate 12/26/17 18:00 Mycobacterial Smear (COLLEEN) - Final Other - Aspirate 12/26/17 19:28 Gram Stain - Final Other - Aspirate Laboratory Results 12/31/17 05:30 12/31/17 05:30 12/30/17 12/31/17 01/01/18 05:59 05:59 05:59 Intake Total 800 1800 Output Total 650 1655 Balance 150 145 PT 15.7 SEC (12.0-15.0) H 12/26/17 09:40 INR 1.23 (0.83-1.16) H 12/26/17 09:40 - Physical Exam Constitutional: no apparent distress Eyes: PERRL Ears, Nose, Mouth, Throat: moist mucous membranes Cardiovascular: regular rate and rhythym Respiratory: no respiratory distress Gastrointestinal: normoactive bowel sounds, other (soft, mild TTP, no r/r/g, +BS ) Skin: warm Musculoskeletal: full muscle strength Neurologic: AAOx3 ICD10 Worksheet Patient Problems: Problems Problem Status Onset Pyelonephritis Acute Ureteropelvic junction (UPJ) obstruction, left Acute
[2017-12-31] MEDS: ONDANSETRON 4 MG/2 ML VIAL IVP PRN ×2 (12:38→16:02)
[2017-12-31] MEDS ORDERED: POTASSIUM CL 20 MEQ TAB PO ONE (13:00)
--- NOTE | 2017-12-31 13:28 | SOAPPROG ---
SOAP Progress Note Assessment/Plan: Assessment: 1. Urine leak from left renal pelvis w/ resulting urinoma, s/p robotic left dismembered pyeloplasty & ureteral stent placement on 12/05. Nephrostomy tube and urinoma drain placed on 12/26. Minimal residual urinoma noted on 12/29 CT. However, Saturday's urinoma creatinine level of 5.7 is consistent w/ urine. Therefore, we will continue w/ drainage tube. 2. Complicated UTI involving either left kidney, urinoma, or both. She is not toxic. Also noted to have Jaylene growing from urinoma specimen. 3. Ileus. Very slowly improving. This past Saturday's CT and yesterday's abdominal plain film imaging reveal significant radiographic improvement. Abdomen is also softer and less distended today. Plan: 1. Continue maximum urinary diversion from left renal pelvis/UPJ w/ Landon catheter & left percutaneous nephrostomy. Anticipate leaving these in for close to 2 weeks then performing antegrade nephrostogram to assess for residual urine leak. 2. Continue percutaneous urinoma drain. 3. Continue antibiotics and antifungals as per ID. Appreciate ID assistance. 4. Advance diet as tolerated. Start Reglan IV. Subjective: Feels better today, but still with episodes of nausea that are not necessarily related to oral intake. Tolerated toast earlier and is drinking fluids. Objective: Vital Signs Temp Pulse Resp BP Pulse Ox 36.9 C 72 17 162/70 H 90 L 12/31/17 09:03 12/31/17 09:03 12/31/17 09:03 12/31/17 09:03 12/31/17 09:03 Microbiology 12/26/17 19:28 Gram Stain - Final Other - Aspirate 12/26/17 18:00 Gram Stain - Final Other - Aspirate 12/26/17 18:00 Mycobacterial Smear (COLLEEN) - Final Other - Aspirate Laboratory Results 12/31/17 05:30 12/31/17 05:30 12/30/17 12/31/17 01/01/18 05:59 05:59 05:59 Intake Total 800 1800 Output Total 650 1655 1530 Balance 150 145 -1530 PT 15.7 SEC (12.0-15.0) H 12/26/17 09:40 INR 1.23 (0.83-1.16) H 12/26/17 09:40 Physical Exam - Physical Exam General Appearance: alert, no apparent distress, obese Abdomen: soft, distended (but decreased), other (decreased tenderness, fairly good BS in all quadrants) Back: Other (urine clear via neph tube) Skin: normal color, warm/dry Extremities: non-tender, normal inspection Neuro/Psych: alert, normal mood/affect, oriented x 3 ICD10 Worksheet Patient Problems: Problems Problem Status Onset Pyelonephritis Acute Ureteropelvic junction (UPJ) obstruction, left Acute
[2017-12-31] MEDS: METOCLOPRAMIDE 10 MG/2 ML VIAL IVP SCH ×3 (13:49→23:33)
--- NOTE | 2017-12-31 15:07 | PCMIDPN ---
Assessment/Plan: #Post op infected urinoma and pyelonephritis due to Jaylene and now lactobacillus, s/p robotic left pyeloplasty & ureteral stent placement on 12/05. WBC normalized yesterday. Reviewed CT with radiology, urinoma resolved on CT --continue fluconazole 400mg PO daily, needs 2 weeks --now with lactobacillus from kidney, likely pertinent pathogen, would not be covered by cephalosporin. patient willing to try amoxicillin 500mg PO TID. Benadryl written for.Other option is clindamycin. Typical Resistance to vancomycin #Possible Proteus UTI/bladder infection, plan 7 days antibiotic continue ceftriaxone for now meds ceftriaxone 1gm IV daily #7 (got last dose today) fluconazole 400mg PO daily #5 Micro 12/26 urinoma: Jaylene albicans 12/26 L kidney: jaylene albicans, lactobacillus 12/25 urine from bladder: 20K proteus 12/25 blood cx (2) Neg Subjective: patient still with no BM, abdominal distension Objective: Vital Signs Temp Pulse Resp BP Pulse Ox 36.9 C 72 17 162/70 H 90 L 12/31/17 09:03 12/31/17 09:03 12/31/17 09:03 12/31/17 09:03 12/31/17 09:03 Microbiology 12/26/17 19:28 Gram Stain - Final Other - Aspirate 12/26/17 18:00 Gram Stain - Final Other - Aspirate 12/26/17 18:00 Mycobacterial Smear (COLLEEN) - Final Other - Aspirate Laboratory Results 12/31/17 05:30 12/31/17 05:30 12/30/17 12/31/17 01/01/18 05:59 05:59 05:59 Intake Total 800 1800 Output Total 650 1655 1530 Balance 150 145 -1530 Gen: pleasant NAD,fluent speech. Chest: breathing easy, decreased bs bases CV: RRR + 2/6 SM Abdomen: distension, stable; decreased bowel sounds, urinoma drain empty; nephrostomy clear urine : Landon in place Ext: trace LLE RUE PICC c/d/i - Time Spent With Patient Time Spent with Patient: greater than 35 minutes (reviewed new micro findings, treatment options amox vs clindamycin; side effect profile; care coordinated with Dr. Harris) Time Spent with Patient: Greater than 35 minutes spent on this patients care, greater than 50% of time spent counseling, educating, and coordinating care regarding the above mentioned plan. ICD10 Worksheet Patient Problems: Problems Problem Status Onset Pyelonephritis Acute Ureteropelvic junction (UPJ) obstruction, left Acute
[2017-12-31] MEDS ORDERED: diphenhydrAMINE 25 MG CAP PO PRN (15:27)
--- NOTE | 2017-12-31 16:21 | ASMTCMCOM ---
CM Note CM Note Notes: Pt doing much better today w/mobility; PT now recommending home. Met w/pt to discuss dc plan. Pt is open to having HHC RN if needed. If pt goes home w/current drains and Landon HHC RN visit would be beneficial. Pt states she has large friend support network that will also help her at home. Referrals sent in case HHC needed. CM will follow. Date Signed: 12/31/2017 04:21 PM Electronically Signed By:Edwina Chavez RN
[2017-12-31] MEDS: SENNOSIDES 1 TAB PO SCH (20:14)
[2017-12-31] MEDS ORDERED: ALTEPLASE 2 MG VIAL IVP PRN (20:51)
[2017-12-31] MEDS ORDERED: POTASSIUM CL 10 MEQ TAB PO ONE (22:58)
[2018-01-01] MEDS: LEVOTHYROXINE 88 MCG TAB PO SCH (06:04)
[2018-01-01] MEDS: METOCLOPRAMIDE 10 MG/2 ML VIAL IVP SCH (06:04)
[2018-01-01] MEDS: ONDANSETRON 4 MG/2 ML VIAL IVP PRN ×2 (07:15→11:25)
[2018-01-01] MEDS: PROMETHAZINE HCL 25 MG/ML INJ IVP PRN ×2 (08:25→13:34)
--- NOTE | 2018-01-01 08:56 | PCMIDPN ---
Assessment/Plan: #Post op infected urinoma and pyelonephritis due to Jaylene and lactobacillus, s /p robotic left pyeloplasty & ureteral stent placement on 12/05. WBC normalized, AF. Increased abdominal pain, persistently low bowel sounds, N/V not responsive to Phenergan + zofran --continue fluconazole 400mg daily, needs 2 weeks, switch to IV today due to active N/V --amoxicillin 500mg PO TID - just hold for now while work out bowel issues, but doubt reaction to amox --discussed w Dr. Harris, he will order imaging. #Possible Proteus UTI/bladder infection,s/p 7 days ceftriaxone meds fluconazole 400mg PO daily #01/23 amox 500mg PO TID #1 Micro 12/26 urinoma: Jaylene albicans 12/26 L kidney: jaylene albicans, lactobacillus 12/25 urine from bladder: 20K proteus 12/25 blood cx (2) Neg Subjective: patient w N/V all morning - persistent after both Phenergan and zofran no hives small BM Objective: Vital Signs Temp Pulse Resp BP Pulse Ox 36.9 C 63 16 136/85 H 96 01/01/18 04:27 01/01/18 04:27 01/01/18 04:27 01/01/18 04:27 01/01/18 04:27 Microbiology 12/26/17 19:28 Gram Stain - Final Other - Aspirate 12/26/17 18:00 Gram Stain - Final Other - Aspirate Laboratory Results 01/01/18 06:03 01/01/18 06:03 12/31/17 01/01/18 01/02/18 05:59 05:59 05:59 Intake Total 1800 450 Output Total 1655 2330 1850 Balance 145 -1880 -1850 - Physical Exam General Appearance: alert, no apparent distress, other (flushed, distressed due to N/V) EENT: pale conjunctiva Respiratory: No accessory muscle use, No wheezing Neck: supple Cardiac/Chest: regular rate, rhythm Abdomen: distended, tender, other (decreased bowel sounds; mild pinkness around small surgical sites, not cellulitic) Skin: diaphoresis, No rash Neuro/Psych: alert, oriented x 3 - Line/s RUE PICC Lines: No drainage, No erythema - Time Spent With Patient Time Spent with Patient: greater than 35 minutes (care coordinated wtih Dr. Harris and Dr. Parson) Time Spent with Patient: Greater than 35 minutes spent on this patients care, greater than 50% of time spent counseling, educating, and coordinating care regarding the above mentioned plan. ICD10 Worksheet Patient Problems: Problems Problem Status Onset Pyelonephritis Acute Ureteropelvic junction (UPJ) obstruction, left Acute
[2018-01-01 09:44] LABS: PLATELET COUNT 337 10^3/uL (150-400)
--- NOTE | 2018-01-01 09:57 | HOSPPROG ---
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 Cultures growing Jaylene albicans, Lactobacillus and Proteus. -completed 7 days of ceftriaxone -cont po fluconazole, day 01/23 -consider CT abd/pelvis with oral contrast to r/o bowel injury as source of jaylene -nephrostogram today per Dr. Harris -discussed with ID, Amoxicillin added for Lactobacillus coverage, but holding currently given N/V Nausea / Vomiting - condition worse today. Discussed with ID and Urology -imaging per Urology recs -anti-emetics, supportive care -KUB / upright now -repeat chem panel -restart IVF's given poor oral intake Ileus - repeat abdominal plain film to eval for obstructive process given worsening N/V -consider repeat CT as above Seizure disorder-patient is currently on Keppra no seizure activity during this hospitalization. History of traumatic brain injury Chronic hypoxic respiratory failure- 2/2 [place], on CPAP therapy at home, cont here. On room air now. Hypothyroidism-continue current dosing of levothyroxine. Depression-continue current dosing of Effexor. DVT prophylaxis- SCD's, ambulation, pharm deferred with drains in place Disposition- continue PT and OT and looking at potential discharge to home when ready with home health, possibly tomorrow if tolerating po. Subjective: Pt feels poorly, with N/V this am. [place] a little queasy yesterday, symptoms worse this am after oral amox. No fevers/chills. Increased abdominal discomfort. Little oral intake. Objective: Vital Signs Temp Pulse Resp BP Pulse Ox 36.8 C 76 22 H 167/82 H 100 01/01/18 09:43 01/01/18 09:43 01/01/18 09:43 01/01/18 09:43 01/01/18 09:43 Microbiology 12/26/17 19:28 Gram Stain - Final Other - Aspirate 12/26/17 18:00 Gram Stain - Final Other - Aspirate Laboratory Results 01/01/18 09:38 12/31/17 01/01/18 01/02/18 05:59 05:59 05:59 Intake Total 1800 450 Output Total 1655 2330 2950 Balance 145 -1880 -2950 PT 15.7 SEC (12.0-15.0) H 12/26/17 09:40 INR 1.23 (0.83-1.16) H 12/26/17 09:40 - Physical Exam Constitutional: no apparent distress Eyes: PERRL Ears, Nose, Mouth, Throat: moist mucous membranes Cardiovascular: regular rate and rhythym Respiratory: no respiratory distress, clear to auscultation Gastrointestinal: other (soft, mild distention, +TTP left side, no r/r/g, +BS) Skin: warm Musculoskeletal: full muscle strength Neurologic: AAOx3 Psychiatric: interacting appropriately ICD10 Worksheet Patient Problems: Problems Problem Status Onset Pyelonephritis Acute Ureteropelvic junction (UPJ) obstruction, left Acute
[2018-01-01] MEDS ORDERED: NS W/ 20 KCl/L 1,000 ML IV SCH (10:00)
[2018-01-01] MEDS ORDERED: NS 1,000 ML IV SCH (10:15)
[2018-01-01] MEDS: FLUCONAZOLE/NaCl 200 ML IV SCH (12:13)
[2018-01-01] MEDS: LIOTHYRONINE SODIUM 5 MCG TAB PO SCH (13:20)
[2018-01-01] MEDS: VENLAFAXINE XR 75 MG CAP PO SCH (13:21)
[2018-01-01] MEDS: POLYETHYLENE GLYCOL 3350 17 GM PKT PO SCH (13:21)
[2018-01-01] MEDS: levETIRAcetam 500 MG TAB PO SCH (13:22)
[2018-01-01] MEDS: FLUCONAZOLE 100 MG TAB PO SCH (13:22)
[2018-01-01] MEDS: POTASSIUM Cl (KCl) 100 ML IV SCH ×5 (13:34→23:44)
[2018-01-01] MEDS: levETIRAcetam 1000MG/NACL 100 ML IV SCH ×2 (14:39→22:02)
[2018-01-01] MEDS ORDERED: PROCHLORPERAZINE MALEATE 25 MG SUPPR PR PRN (15:10)
[2018-01-01] MEDS: HYDROmorphONE/DILAUDID 1 MG/ML INJ IVP PRN (15:29)
[2018-01-01] MEDS: LORazepam 2 MG/ML INJ IVP PRN ×2 (15:29→22:06)
[2018-01-01] MEDS ORDERED: IOPAMIDOL (ISOVUE-300) 100 ML BTL ONE (16:47)
--- NOTE | 2018-01-01 18:01 | SOAPPROG ---
[facility] Progress Note Assessment/Plan: Assessment: 1. 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 Nephrostomy tube and urinoma drain placed on 12/26. Minimal residual urinoma noted on 12/29 CT. Nephrostogram today reveals persistent leak from renal pelvis /UPJ into the region of her abdominal drain. 2. Complicated UTI involving either left kidney, urinoma, or both. She is not toxic. Also noted to have Jaylene growing from urinoma specimen. 3. Recurrent ileus. Very slowly improving. Even though her serial CT and abdominal plain film imaging appear unremarkable, I believe the urinary extravasation (and resulting GI irritation) is the primary causative factor for this. Unfortunately, she is failing conservative therapy (primarily because of her GI issues). Therefore, I do not believe we can continue with current management and need to proceed with surgery. Planned surgery will be open renal exploration, possible collecting system repair, and possible nephrectomy. Considering the likely significant degree of sheridan-renal inflammation that will be encountered, there is a high chance that repair will not be possible and that she will need to have her kidney removed. I have fully discussed this w/ the pt. (and, per pt. request, her friend Aline Goss). All questions were answered. Plan: 1. Proceed with surgery tomorrow. Continue maximum urinary diversion from left renal pelvis/UPJ w/ Landon catheter & left percutaneous nephrostomy in the until then. 2. Continue percutaneous urinoma drain until tomorrow's surgery. 3. Continue antibiotics and antifungals as per ID. Appreciate ID assistance. 4. Continue supportive care & NPO status for persistent N/V. Subjective: She's had a terrible day with fairly persistent nausea and dry heaves. Had nephrostogram done earlier this afternoon. Anxious to know next step(s). Objective: Vital Signs Temp Pulse Resp BP Pulse Ox 37.6 C 74 16 177/84 H 96 01/01/18 15:12 01/01/18 15:12 01/01/18 15:12 01/01/18 15:12 01/01/18 15:12 Microbiology 12/26/17 19:28 Gram Stain - Final Other - Aspirate 12/26/17 18:00 Gram Stain - Final Other - Aspirate Laboratory Results 01/01/18 09:38 01/01/18 09:38 12/31/17 01/01/18 01/02/18 05:59 05:59 05:59 Intake Total 1800 450 Output Total 1652 2670 3830 Balance 145 -1880 -3830 PT 15.7 SEC (12.0-15.0) H 12/26/17 09:40 INR 1.23 (0.83-1.16) H 12/26/17 09:40 Physical Exam - Physical Exam General Appearance: alert, no apparent distress, obese Abdomen: soft, distended Skin: warm/dry Extremities: non-tender, normal inspection Neuro/Psych: alert, normal mood/affect, oriented x 3 ICD10 Worksheet Patient Problems: Problems Problem Status Onset Pyelonephritis Acute Ureteropelvic junction (UPJ) obstruction, left Acute
[2018-01-01] MEDS: HYDROmorphone HCL/NS 0.5 MG/ML SYR IVP PRN ×2 (18:09→22:06)
[2018-01-01] MEDS: SENNOSIDES 1 TAB PO SCH (22:07)
[2018-01-02] MEDS: AMPICILLIN SODIUM 2 GM in NS 100 ML IV SCH ×4 (00:57→19:27)
[2018-01-02] MEDS: POTASSIUM Cl (KCl) 100 ML IV SCH (00:57)
[2018-01-02] MEDS: LEVOTHYROXINE 88 MCG TAB PO SCH (06:35)
[2018-01-02 06:51] LABS: PLATELET COUNT 329 10^3/uL (150-400)
[2018-01-02] MEDS ORDERED: POTASSIUM Cl (KCl) 100 ML IV SCH (08:33)
[2018-01-02] MEDS: POLYETHYLENE GLYCOL 3350 17 GM PKT PO SCH (09:12)
[2018-01-02] MEDS: VENLAFAXINE XR 75 MG CAP PO SCH (09:12)
[2018-01-02] MEDS: FLUCONAZOLE/NaCl 200 ML IV SCH (09:12)
[2018-01-02] MEDS: LIOTHYRONINE SODIUM 5 MCG TAB PO SCH (09:12)
[2018-01-02] MEDS: levETIRAcetam 1000MG/NACL 100 ML IV SCH ×2 (09:12→20:41)
--- NOTE | 2018-01-02 09:54 | ASMTCMCOM ---
CM Note CM Note Notes: Chart reviewed for discharge planning purposes. Patient to surgery today as she has ongoing paiin, nausea and vomiting. Plan unclear at this point but will likely need HHC therapies in place for dc. CM to follow. Plan: Home with HHC when medically cleared for discharge. Date Signed: 01/02/2018 09:53 AM Electronically Signed By:Rowan Cisneros RN
--- NOTE | 2018-01-02 09:59 | PCMIDPN ---
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 Aspirate from the urinoma is positive for Jaylene and lactobacillus. Currently she is being managed on ampicillin and fluconazole. Would continue this regimen. Patient is to return to surgery today for repair of ongoing leak. Clinically she seems to be doing well. Plan: 1. Continue both ampicillin and fluconazole at present doses. 2. Follow-up with results from surgery today. Subjective: Patient is sitting up on the side of her bed. She is anxious to go to the operating room for repair of her ongoing urine leak. She reports no new complaints. Improved nausea. Objective: Ampicillin # 1 Fluconazole # 7 Vital Signs Temp Pulse Resp BP Pulse Ox 36.7 C 65 16 134/65 H 96 01/02/18 08:00 01/02/18 08:00 01/02/18 08:00 01/02/18 08:00 01/02/18 08:00 Microbiology 12/26/17 19:28 Gram Stain - Final Other - Aspirate 12/26/17 18:00 Gram Stain - Final Other - Aspirate Laboratory Results 01/02/18 06:40 01/02/18 06:40 01/01/18 01/02/18 01/03/18 05:59 05:59 05:59 Intake Total 450 0 1200 Output Total 2330 5840 Balance -1880 -5840 1200 - Physical Exam General Appearance: WD/WN, alert, no apparent distress, non-toxic Respiratory: lungs clear, normal breath sounds, No respiratory distress Cardiac/Chest: regular rate, rhythm, No tachycardia Skin: normal color, warm/dry, No rash Neuro/Psych: alert, normal mood/affect, oriented x 3 ICD10 Worksheet Patient Problems: Problems Problem Status Onset Pyelonephritis Acute Ureteropelvic junction (UPJ) obstruction, left Acute
[2018-01-02] MEDS: POTASSIUM Cl (KCl) 10 MEQ in NS 100 ML IV SCH ×3 (10:16→19:29)
--- NOTE | 2018-01-02 12:40 | HOSPPROG ---
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 Now with urine leak discovered yesterday on nephrostogram and per urology, she has clearly failed conservative therapy and will go to OR today for definitive management and probable nephrectomy. Cultures growing Jaylene albicans, Lactobacillus and Proteus. Discussed with ID. -OR today per urology -completed 7 days of ceftriaxone -cont po fluconazole, day 02/22 -IV ampicillin while NPO for Lactobacillus coverage per ID Nausea / Vomiting - improved today -cont anti-emetics, supportive care -cont maintenance fluids while NPO Seizure disorder- no seizures -cont keppra, changed to IV while NPO History of traumatic brain injury Chronic hypoxic respiratory failure- 2/2 [place], on CPAP therapy at home, cont here. On room air now. Hypothyroidism-continue current dosing of levothyroxine. Depression-continue current dosing of Effexor. DVT prophylaxis- SCD's, ambulation, pharm deferred with drains in place Disposition- cont inpt, ADD uncertain, returning to OR today Subjective: Pt feels better this am. No N/V or abdominal pain. She feels ok about operative plans today. No fevers/chills. Currently NPO. Objective: Vital Signs Temp Pulse Resp BP Pulse Ox 36.7 C 65 16 134/65 H 96 01/02/18 08:00 01/02/18 08:00 01/02/18 08:00 01/02/18 08:00 01/02/18 08:00 Microbiology 12/26/17 19:28 Gram Stain - Final Other - Aspirate 12/26/17 18:00 Gram Stain - Final Other - Aspirate Laboratory Results 01/02/18 06:40 01/02/18 06:40 01/01/18 01/02/18 01/03/18 05:59 05:59 05:59 Intake Total 450 0 1200 Output Total 2330 5840 Balance -1880 -5840 1200 PT 15.7 SEC (12.0-15.0) H 12/26/17 09:40 INR 1.23 (0.83-1.16) H 12/26/17 09:40 - Physical Exam Constitutional: no apparent distress Eyes: PERRL Ears, Nose, Mouth, Throat: moist mucous membranes Cardiovascular: regular rate and rhythym Respiratory: no respiratory distress, clear to auscultation Gastrointestinal: normoactive bowel sounds, other (soft, mild distention, +TTP L >R, no r/r/g) Skin: warm Musculoskeletal: full muscle strength Neurologic: AAOx3 Psychiatric: interacting appropriately ICD10 Worksheet Patient Problems: Problems Problem Status Onset Pyelonephritis Acute Ureteropelvic junction (UPJ) obstruction, left Acute
[2018-01-02] MEDS ORDERED: MIDAZOLAM 2 MG/2 ML VIAL IVP ONE (14:10)
--- NOTE | 2018-01-02 14:12 | PDANEPAE ---
ANE History of Present Illness LEFT KIDNEY LEAK ANE Past Medical History - Cardiovascular History Hx Hypertension: No Hx Arrhythmias: No Hx Chest Pain: No Hx Coronary Artery / Peripheral Vascular Disease: No Hx CHF / Valvular Disease: No Hx Palpitations: No - Pulmonary History Hx COPD: No Hx Asthma/Reactive Airway Disease: Yes Hx Recent Upper Respiratory Infection: No Hx Oxygen in Use at Home: Yes O2 in Use at Home (L/minute): 2 Hx Sleep Apnea: Yes Sleep Apnea Screening Result - Last Documented: Positive Pulmonary History Comment: upper resp infections and colds trigger asthma - Neurologic History Hx Cerebrovascular Accident: No Hx Seizures: Yes Hx Dementia: No Neurologic History Comment: LAST SEIZURE OVER A YEAR AGO - Endocrine History Hx Diabetes: No Obesity: mild - Renal History Hx Renal Disorders: No Renal History Comment: KIDNEY STONES - Liver History Hx Hepatic Disorders: No - Neurological & Psychiatric Hx Hx Neurological and Psychiatric Disorders: Yes Neurological / Psychiatric History Comment: TBI 15ys ago - Cancer History Hx Cancer: Yes Cancer History Comment: cancerous tissue removed - Congenital Disorder History Hx Congenital Disorders: No - GI History GERD: no Hx Gastrointestinal Disorders: Yes Gastrointestinal History Comment: fundaplication 25 yrs ago - Other Health History Other Health History: dentures uppers. front tooth temporary - Chronic Pain History Chronic Pain: Yes (right knee) - Surgical History Prior Surgeries: left rotator cuff repair. 2 cystoscopies jun 28,aug 29 ANE Review of Systems Review of Systems: - Exercise capacity METS (RN): 4 METS ANE Patient History - Allergies Allergies/Adverse Reactions: ciprofloxacin [From Cipro] Allergy (Mild, Verified 12/25/17 12:45) Rash Penicillins Allergy (Mild, Verified 12/25/17 12:45) Rash Sulfa (Sulfonamide Antibiotics) Allergy (Mild, Verified 12/25/17 12:45) Rash BEE STINGS Allergy (Unknown, Uncoded 12/05/17 10:29) - Home Medications Home Medications: Albuterol [Proventil Inhaler HFA (*)] 1 - 2 puffs IH DAILY PRN 11/12/17 [Last Taken 12/05/16] Cholecalciferol Vit D3 [Vitamin D3 (*)] 5,000 units PO DAILY 11/12/17 [Last Taken 12/25/17] Levothyroxine [Synthroid 88 mcg (*)] 88 mcg PO DAILY06 11/12/17 [Last Taken ] Liothyronine Sodium [Cytomel 5 mcg (*)] 5 mcg PO DAILY 11/12/17 [Last Taken ] levETIRAcetam [Keppra 500 mg (*)] 1,000 mg PO BID 12/05/17 [Last Taken 12/25/17] Herbals/Supplements -Info Only 1 ea PO DAILY 12/25/17 [Last Taken Unknown] Ibuprofen [Motrin (*)] 200 mg PO DAILY PRN 12/25/17 [Last Taken Unknown] - NPO status NPO Since - Liquids (Date): 01/01/18 NPO Since - Liquids (Time): 20:00 NPO Since - Solids (Date): 01/01/18 NPO Since - Solids (Time): 06:00 - Smoking Hx Smoking Status: Former smoker - Alcohol Use Alcohol Use: Occasionally - Family Anes Hx Family Hx Anesthesia Complications: none ANE Labs/Vital Signs - Labs Result Diagrams: 01/02/18 06:40 01/02/18 06:40 - Vital Signs Blood Pressure: 134/65 Heart Rate: 65 Respiratory Rate: 16 O2 Sat (%): 96 Height: 162.56 cm Weight: 83.915 kg ANE Physical Exam - Airway Neck exam: FROM Mallampati Score: Class 1 Mouth exam: normal dental/mouth exam - Pulmonary Pulmonary: no respiratory distress - Cardiovascular Cardiovascular: regular rate and rhythym - ASA Status ASA Status: III ANE Anesthesia Plan Anesthesia Plan: general endotracheal anesthesia, epidural
[2018-01-02] MEDS ORDERED: epHEDrine SULFATE 10 MG/ML SYR ONE (14:20)
[2018-01-02] MEDS ORDERED: DEXAMETHASONE 4 MG/ML VIAL ONE (14:20)
[2018-01-02] MEDS ORDERED: PHENYLEPHRINE HCL 100 MCG/ML SYR ONE (14:20)
[2018-01-02] MEDS ORDERED: ONDANSETRON 4 MG/2 ML VIAL ONE (14:20)
[2018-01-02] MEDS ORDERED: fentaNYL 100 MCG/2 ML INJ ONE ×4 (14:20→18:08)
[2018-01-02] MEDS ORDERED: LIDOCAINE 2% 5 ML SDV ONE ×2 (14:20→18:56)
[2018-01-02] MEDS ORDERED: ROCURONIUM 50 MG/5 ML VIAL ONE (14:20)
[2018-01-02] MEDS ORDERED: ROPIVACAINE HCL 150 MG/30 ML INJ ONE (14:20)
[2018-01-02] MEDS ORDERED: PROPOFOL 200 MG/20 ML VIAL ONE (14:21)
[2018-01-02] MEDS ORDERED: HYDROmorphONE/DILAUDID 2 MG/ML INJ ONE ×3 (15:33→22:09)
[2018-01-02] MEDS ORDERED: THROMBIN(HUM PLAS)/FIBRINOG/CA 5 ML VIAL TP ONE (16:39)
[2018-01-02] MEDS ORDERED: FENT2MCG/ML&BUP0.1% 1 EA, fentaNYL 200 MCG, BUPIVACAINE 0.5% 20 ML in NS 100 ML IV SCH (17:10)
[2018-01-02] MEDS ORDERED: NARCOTIC DRIP BAG-TOTAL ALL TYPES EP PRN (17:14)
[2018-01-02] MEDS ORDERED: ONDANSETRON 4 MG/2 ML VIAL IVP PRN ×2 (17:14→17:22)
[2018-01-02] MEDS ORDERED: NALOXONE HCL 0.4 MG/ML INJ IVP PRN ×2 (17:14→17:22)
[2018-01-02] MEDS ORDERED: HYDROmorphONE/DILAUDID 2 MG/ML INJ IVP PRN ×2 (17:22→22:30)
[2018-01-02] MEDS ORDERED: HYDROCODONE/APAP 5/325 TAB PO PRN (17:22)
[2018-01-02] MEDS ORDERED: PROMETHAZINE HCL 25 MG/ML INJ IVP PRN (17:22)
[2018-01-02] MEDS ORDERED: SUGAMMADEX SODIUM 200 MG/2 ML VIAL IVP ONE (17:45)
[2018-01-02] MEDS ORDERED: BACITRACIN ZINC 14.2 GM OINTTUBE TP ONE (17:47)
--- NOTE | 2018-01-02 17:57 | POSTOPPROG ---
Post Op Note Date of Operation: 01/02/18 Surgeon: Clover Harris (# [id number]) Leather Stitcher: John Mcgregor Anesthesia: Epidural, GET(General Endotracheal) Pre-op Diagnosis: Left renal collecting system urine leak w/ urinoma Post-op Diagnosis: Left renal collecting system urine leak w/ urinoma Procedure: Left nephrectomy & partial ureterectomy Findings: See op note Inf/Abcess present in the surg proc area at time of surgery?: No EBL: 100-500 (300 cc) Complications: None Drains: Rodney Marquez (10 Flat) Specimen(s): Left kidney & proximal ureter
[2018-01-02] MEDS ORDERED: ALBUTEROL 60 PUFFS/8 GM MDI IH PRN (17:58)
[2018-01-02] MEDS: fentaNYL 100 MCG/2 ML INJ IVP PRN ×2 (18:11→18:29)
--- NOTE | 2018-01-02 19:20 | GOP ---
[f rep st] OPERATIVE REPORT DATE OF OPERATION: 01/02/2018 SURGEON: Clover Harris MD BAGGAGE PORTER HEAD: John Mcgregor MD ANESTHESIA: General endotracheal with epidural. PREOPERATIVE DIAGNOSIS: Left renal collecting system urine leak with perinephric urinoma, status post robotic dismembered pyeloplasty and ureteral stent placement. POSTOPERATIVE DIAGNOSIS: Left renal collecting system urine leak with perinephric urinoma, status post robotic dismembered pyeloplasty and ureteral stent placement. PROCEDURE PERFORMED: Open left nephrectomy and partial ureterectomy. FINDINGS: Extreme inflammation and phlegmon-like reactive change involving the left renal fossa and surrounding tissue. The previously repaired ureteropelvic junction was very tenuous and friable, and it was not felt that successful operative reconstruction could be performed. No evidence of active intraabdominal infection nor signficant remaining urinoma. SPECIMENS: Left kidney and proximal ureter. ESTIMATED BLOOD LOSS: Approximately 300 cc. INDICATIONS: This woman underwent a robotic left-sided dismembered pyeloplasty and ureteral stent placement approximately 1 month ago. She was admitted about 1 week ago with a perinephric urinoma and associated urine leak from the renal collecting system that was noted on admission imaging. She was then started on maximum conservative therapy with nephrostomy tube, percutaneous urinoma drainage, and Landon catheter with hopes that the urine leak would spontaneously resolve. However, the patient ultimately developed intractable nausea and vomiting which continued despite medical therapy and treatment for ileus. As a result of her intractable GI symptoms, it was decided that we needed to proceed with operative management, with the thought that the persistent urine leak was leading to her gastrointestinal issues and that either the urine leak needed to be repaired or she needed to undergo nephrectomy. It was explained to the patient preoperatively that there was a high likelihood she would require nephrectomy due to the expectation from my perspective that the severe intraabdominal inflammation and friability of tissue which would make repeat reconstruction of the ureteropelvic junction likely very difficult, if not impossible. The indications for the procedures as well as potential risks and complications were discussed with the patient preoperatively. She appeared to understand, her questions were answered, and she wished to proceed. Written informed surgical consent was thereafter obtained. DESCRIPTION OF PROCEDURE: The patient was brought to the operating room and administered an epidural anesthetic. She was then placed in the supine position on the operating room table and over the break of the table. The existing indwelling Landon catheter was removed and a new 16-[place] Landon catheter inserted to bag drainage. The table was flexed approximately 15 degrees. The urinoma abdominal drain was removed. The abdomen was sterilely prepped and draped in standard fashion utilizing Ioban. A left subcostal incision was made with a scalpel and carried through the anterior abdominal wall with electrocautery. The abdominal cavity was entered. Omni retractor was used throughout the case to assist with exposure and retraction. Immediately it was evident there was severe intraabdominal inflammatory reaction type change that made discrimination of the tissue planes very difficult. The descending colon was densely adherent to the anterior aspect of the kidney. I was able to carefully dissect it free and mobilize it medially off the kidney, and medial to the aorta. There was a generalized phlegmon type reaction and dense inflammatory rind surrounding the kidney, aorta, and the region around the proximal ureter. I then carefully dissected around the kidney circumferentially with gentle blunt dissection and electrocautery. The spleen was identified and left out of harm's way. I continued this dissection posteriorly, superiorly, and inferiorly. I was able to identify the insertion of the nephrostomy tube into the kidney and it was cut free. I was able to isolate the ureter distal to the kidney. It was extremely friable and inflamed , as was predicted considering the recent urinoma development and the fact that she was only 1 month postop from her prior surgery. I then carefully followed the ureter towards the renal pelvis. The renal pelvis was not definitively seen , as a result of the inflammatory phlegmon surrounding the entire kidney, particularly medially. I then carefully was able to create a window above and below the renal hilum and was able to dissect posterior to it. At this point, I carefully inspected the ureteropelvic junction. It was noted to be extremely friable and tenuous. I did not feel that I would be able to perform a sufficient repeat reconstruction that would maintain viability. Therefore, I decided to proceed with nephrectomy. A 60 mm linear vascular stapler was used to ligate the renal hilum successfully. Any remaining medial attachments between the aorta and the kidney were ligated with another application of the vascular stapler. The remaining superolateral and superomedial attachments between the kidney and surrounding tissue were ligated free carefully with electrocautery and gentle blunt dissection. I tried to leave the adrenal gland in place as much as possible. The posterior dissection had been already completed. The only remaining attachment was the ureter. It was ligated with the LigaSure after removing the existing indwelling ureteral stent. The kidney was then completely free and passed off the table. The operative site was carefully inspected. There was some bleeding noted from the exposed surface of the adrenal gland, which was ligated successfully with a 3-0 silk stick tie. The remainder of the wound was completely hemostatic. The spleen was unharmed. The bowel was inspected and noted to be intact, specifically the colon and the surrounding small bowel. The mesentery was viable and intact. The omentum was also noted to be intact. Hemostasis of the ligated renal hilum was confirmed. Approximately 6 cc of Evicel was then placed in different areas along the wound , namely the exposed surface of the adrenal gland and the renal hilum, as well as the ligated portion of the ureter. The abdominal contents were then placed back in their normal anatomic position. The Omni retractor was removed and all sponges and Ray-Jess's had been removed. Appropriate sponge count was confirmed at this point, with appropriate instrument and needle count confirmed later. Closure of the incision was then started. It was performed in 3 layers, with the innermost layer incorporating the transverse abdominus and internal oblique musculature and associated fascia laterally. This layer was run contiguously with an 0 silk suture, where medially it was joined with the posterior rectus sheath. The second layer incorporated the external oblique fascia laterally and this was run contiguously with the anterior rectus fascia medially, again with a running 0 Vicryl suture. The subcutaneous tissue was irrigated and cauterized for hemostasis as necessary. It should also be mentioned that, because of the prior urinoma that was infected, I did place a 10 flat Rodney- Marquez drain in the left renal fossa and brought it out through a separate stab wound in the left lower quadrant. It was ultimately secured to the skin with a 2-0 silk suture and connected to bulb suction. The skin was then reapproximated with a running 4-0 Monocryl suture in a subcuticular fashion, followed by the application of Dermabond. A gauze dressing was placed at the drain site, as well as a Biopatch and Tegaderm. The remaining external portion of the nephrostomy tube was removed. Antibiotic ointment was placed at the nephrostomy skin site, followed by gauze and tape. The patient was then awakened, extubated, transferred to her bed, then taken to the recovery room. She tolerated the procedure well overall. COMPLICATIONS: None. DISPOSITION: She was transferred to the recovery room in stable condition and will be sent back to the floor for postoperative care. /[id number]/MODL MTDD
[2018-01-02] MEDS: D5W NS 1,000 ML IV SCH (20:32)
[2018-01-02] MEDS ORDERED: HYDROmorphone HCL/NS 0.5 MG/ML SYR IVP PRN (22:00)
[2018-01-02] MEDS: oxyCODONE IR 5 MG TAB PO PRN (23:55)
[2018-01-03] MEDS: AMPICILLIN SODIUM 2 GM in NS 100 ML IV SCH ×5 (00:19→23:48)
[2018-01-03] MEDS: HYDROmorphone HCL/NS 0.5 MG/ML SYR IVP PRN ×3 (00:35→04:58)
[2018-01-03] MEDS: LEVOTHYROXINE 88 MCG TAB PO SCH (05:24)
--- NOTE | 2018-01-03 05:41 | SOAPPROG ---
SOAP Progress Note Assessment/Plan: Assessment: called for "leaking epidural" epidural redressed, bolused with no obvious leak, cath still 15 cm at the skin pain improved with bolus of 8 cc of Fent/Bupiv SAM functioning, but a bit low relative to the incision. Will change to Dilaudid. Plan: change solution to Dilaudid/Bupiv keep rate at 10 cc/hr Dr. Fuentes to check later and see if the rate should be adjusted 01/03/18 05:37 Objective: Vital Signs Temp Pulse Resp BP Pulse Ox 36.7 C 68 18 176/80 H 94 01/02/18 23:18 01/03/18 04:16 01/03/18 04:16 01/03/18 04:16 01/03/18 04:16 Microbiology 12/26/17 19:28 Gram Stain - Final Other - Aspirate Anaerobic Culture - Final Jaylene Albicans 12/26/17 18:00 Gram Stain - Final Other - Aspirate Anaerobic Culture - Final Jaylene Albicans Lactobacillus Species Laboratory Results 01/02/18 18:25 01/02/18 18:25 01/01/18 01/02/18 01/03/18 05:59 05:59 05:59 Intake Total 450 0 3600 Output Total 2330 5840 1275 Balance -1880 -5840 2325 PT 15.7 SEC (12.0-15.0) H 12/26/17 09:40 INR 1.23 (0.83-1.16) H 12/26/17 09:40 ICD10 Worksheet Patient Problems: Problems Problem Status Onset Pyelonephritis Acute Ureteropelvic junction (UPJ) obstruction, left Acute
[2018-01-03 05:46] LABS: PLATELET COUNT 339 10^3/uL (150-400)
[2018-01-03] MEDS: HYDROmorph 10MCG/ML&BUP 0.1% in 100ML NS EP SCH ×3 (06:42→19:34)
[2018-01-03] MEDS: D5W NS 1,000 ML IV SCH (06:55)
[2018-01-03] MEDS: LIOTHYRONINE SODIUM 5 MCG TAB PO SCH (09:53)
[2018-01-03] MEDS: VENLAFAXINE XR 75 MG CAP PO SCH (09:53)
[2018-01-03] MEDS: levETIRAcetam 1000MG/NACL 100 ML IV SCH ×2 (09:55→21:16)
[2018-01-03] MEDS: FLUCONAZOLE/NaCl 200 ML IV SCH (11:14)
[2018-01-03] MEDS ORDERED: hydrALAZINE 25 MG TAB PO PRN (11:25)
[2018-01-03] MEDS: DC NARCS MISC SCH (11:28)
[2018-01-03] MEDS: REGARDING ANTICOAG MISC SCH (11:28)
--- NOTE | 2018-01-03 12:46 | HOSPPROG ---
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 Had ongoing urine leak and is now s/p nephrectomy and partial ureterectomy POD #1. Cultures growing Jaylene albicans, Lactobacillus and Proteus. Discussed with Dr. Parks and Dr. Harris -post-op pain management with epidural, prn dilaudid, anesthesia following -completed 7 days of ceftriaxone -cont po fluconazole, day 03/25. Initially planned 2 weeks, though may reduce DOT given removal of infected organ per ID -IV ampicillin while NPO for Lactobacillus coverage, possibly change back to oral Amox when taking po, defer to ID Nausea / Vomiting - improved today -cont anti-emetics, supportive care -cont maintenance fluids Elevated blood pressure - suspect some of this is pain driven -pain control first, prn hydralazine Seizure disorder- no seizures -cont keppra, changed to IV while NPO, return to po when able History of traumatic brain injury Chronic hypoxic respiratory failure- 2/2 BERKLEY, on CPAP therapy at home. Currently 2 LPM, likely some post-op atelectasis playing a role. -cont home CPAP -IS, wean O2 as able Hypothyroidism - continue levothyroxine. Depression - continue current dosing of Effexor. DVT prophylaxis- SCD's, ambulation, resume Lovenox when 24 hrs post-op and when cleared by surgery Disposition- cont inpt, ADD uncertain Subjective: Pt feels better today after nephrectomy. Pain was difficult to control last night, has epidural with dilaudid per anesthesia and doing better today. BP's elevated. No CP or SOB. Started sips of clears and tolerating. No N/V. No fevers. Objective: Vital Signs Temp Pulse Resp BP Pulse Ox 36.9 C 57 L 16 159/89 H 95 01/03/18 12:00 01/03/18 12:00 01/03/18 12:00 01/03/18 12:00 01/03/18 12:00 Microbiology 12/26/17 18:00 Gram Stain - Final Other - Aspirate Anaerobic Culture - Final Jaylene Albicans Lactobacillus Species 12/26/17 19:28 Gram Stain - Final Other - Aspirate Anaerobic Culture - Final Jaylene Albicans Laboratory Results 01/03/18 05:30 01/03/18 05:30 01/02/18 01/03/18 01/04/18 05:59 05:59 05:59 Intake Total 0 3600 Output Total 5840 1745 Balance -5840 1855 PT 15.7 SEC (12.0-15.0) H 12/26/17 09:40 INR 1.23 (0.83-1.16) H 12/26/17 09:40 - Physical Exam Constitutional: no apparent distress Eyes: PERRL Ears, Nose, Mouth, Throat: moist mucous membranes Cardiovascular: regular rate and rhythym Respiratory: no respiratory distress, other (bibasilar crackles, likely atelectatic) Gastrointestinal: other (soft, mild distention, incisions c/d/i, no erythema, minimal tenderness, +BS) Skin: warm Musculoskeletal: full muscle strength Neurologic: AAOx3 Psychiatric: interacting appropriately ICD10 Worksheet Patient Problems: Problems Problem Status Onset Pyelonephritis Acute Ureteropelvic junction (UPJ) obstruction, left Acute
--- NOTE | 2018-01-03 13:17 | ASMTCMCOM ---
CM Note CM Note Notes: Chart reviewed. Patient now s/p nephrectomy with epidural. Needs to be determined. CM to follow. Plan: TBD Date Signed: 01/03/2018 01:17 PM Electronically Signed By:Rowan Cisneros RN
--- NOTE | 2018-01-03 13:23 | SOAPPROG ---
SOAP Progress Note Assessment/Plan: Assessment: 1. POD 1 s/p open left nephrectomy - doing well. 2. History of persistent urine leak from left renal pelvis w/ resulting urinoma , s/p robotic left dismembered pyeloplasty & ureteral stent placement on 12/05, followed by nephrectomy on 01/02. 3. History of complicated UTI involving either left kidney, urinoma, or both. 4. Recurrent ileus: due to urine leak and urinoma. Plan: 1. Continue postop care. 2. Continue antibiotics and antifungals as per ID. Appreciate ID assistance. 3. Clear liquid diet today, advance to regular tomorrow. 4. Pain management via epidural per anesthesia. Preference would be to leave this in until about Saturday, at which time she should be on regular diet and able to transition oral pain medication. 5. Nursing staff informed to contact anesthesia for epidural adjustments so that pt. can ambulate. Subjective: Only complaint is that she can't stand or walk due to epidural. States she's felt better than she has in over 2 weeks. Objective: Vital Signs Temp Pulse Resp BP Pulse Ox 36.8 C 68 18 151/89 H 85 L 01/03/18 12:56 01/03/18 12:56 01/03/18 12:56 01/03/18 12:56 01/03/18 12:56 Microbiology 12/26/17 18:00 Gram Stain - Final Other - Aspirate Anaerobic Culture - Final Jaylene Albicans Lactobacillus Species 12/26/17 19:28 Gram Stain - Final Other - Aspirate Anaerobic Culture - Final Jaylene Albicans Laboratory Results 01/03/18 05:30 01/03/18 05:30 01/02/18 01/03/18 01/04/18 05:59 05:59 05:59 Intake Total 0 3600 Output Total 5840 1745 Balance -5840 1855 PT 15.7 SEC (12.0-15.0) H 12/26/17 09:40 INR 1.23 (0.83-1.16) H 12/26/17 09:40 Physical Exam - Physical Exam General Appearance: alert, no apparent distress, obese Abdomen: non-tender, soft, other (incision c/d/i) Skin: normal color, warm/dry Extremities: non-tender, normal inspection Neuro/Psych: alert, normal mood/affect, oriented x 3 ICD10 Worksheet Patient Problems: Problems Problem Status Onset Pyelonephritis Acute Ureteropelvic junction (UPJ) obstruction, left Acute
--- NOTE | 2018-01-03 14:14 | PDPAINCON ---
Pain Management Consultation Assessment/Plan: Assessment: PCEA currently providing excellent post-operative pain control. Epidural dermatome covers large L sided incision with little room to spare. Plan: At this point in recovery I would estimate that post-op pain control slightly more important than ambulation. Decreasing PCEA basal rate is likely to drop dermatome coverage to below incision. Would recommend to continue PCEA at 10 cc/hr with 5cc bolus. Once pt is able to transition to PO pain meds would plan to DC epidural to enable ambulation with assistance. Pt is currently not on any anticoagulation so would be able to remove catheter at will. 01/03/18 14:14 01/03/18 14:22 Subjective: Pt seen and examined, POD 1 s/p L open nephrectomy, PCEA in place. Pt reports that she "feels best I have in 6 months". She states she has occasionally hit her bolus button. Pain is rated as 4/10. Denies n/v/itching/CHOI. Unable to ambulate 2/2 left leg numbness. Objective: Vital Signs Temp Pulse Resp BP Pulse Ox 36.8 C 68 18 151/89 H 85 L 01/03/18 12:56 01/03/18 12:56 01/03/18 12:56 01/03/18 12:56 01/03/18 12:56 Microbiology 12/26/17 18:00 Gram Stain - Final Other - Aspirate Anaerobic Culture - Final Jaylene Albicans Lactobacillus Species 12/26/17 19:28 Gram Stain - Final Other - Aspirate Anaerobic Culture - Final Jaylene Albicans Laboratory Results 01/03/18 05:30 01/03/18 05:30 01/02/18 01/03/18 01/04/18 05:59 05:59 05:59 Intake Total 0 3600 Output Total 5840 1745 Balance -5840 1855 PT 15.7 SEC (12.0-15.0) H 12/26/17 09:40 INR 1.23 (0.83-1.16) H 12/26/17 09:40 Back site c/d/i. Epidural dermatome is approximately T9-L4/5, L side only. R LE is 4+/5 and L LE 4/5. - Time Spent With Patient Time Spent With Patient: 20 minutes ICD10 Worksheet Patient Problems: Problems Problem Status Onset Pyelonephritis Acute Ureteropelvic junction (UPJ) obstruction, left Acute
--- NOTE | 2018-01-03 14:26 | PCMIDPN ---
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 Aspirate from the urinoma is positive for Jaylene and lactobacillus. Currently she is being managed on ampicillin and fluconazole. We will continue this regimen for now but the patient went to the OR yesterday and had a left-sided nephrectomy which removes the focus of infection. Will likely continue her on the IV antimicrobials through her hospital stay but would likely feel comfortable switching to oral amoxicillin and fluconazole upon discharge. Suspect the total treatment time to be 7-10 days post surgery. Plan: 1. Continue both ampicillin and fluconazole at present doses. 01/03/18 14:24 Subjective: Patient is resting in her hospital bed. She said the surgery yesterday went wonderfully. She feels well. Denies any new complaint. Denies fevers or chills. Objective: Ampicillin # 2 Fluconazole # 8 Vital Signs Temp Pulse Resp BP Pulse Ox 36.8 C 68 18 151/89 H 85 L 01/03/18 12:56 01/03/18 12:56 01/03/18 12:56 01/03/18 12:56 01/03/18 12:56 Microbiology 12/26/17 18:00 Gram Stain - Final Other - Aspirate Anaerobic Culture - Final Jaylene Albicans Lactobacillus Species 12/26/17 19:28 Gram Stain - Final Other - Aspirate Anaerobic Culture - Final Jaylene Albicans Laboratory Results 01/03/18 05:30 01/03/18 05:30 01/02/18 01/03/18 01/04/18 05:59 05:59 05:59 Intake Total 0 3600 Output Total 5840 1745 Balance -5840 1855 - Physical Exam General Appearance: WD/WN, alert, no apparent distress, non-toxic Respiratory: lungs clear, normal breath sounds, No respiratory distress Cardiac/Chest: regular rate, rhythm, No tachycardia Skin: normal color, warm/dry, No rash Neuro/Psych: alert, normal mood/affect, oriented x 3 ICD10 Worksheet Patient Problems: Problems Problem Status Onset Pyelonephritis Acute Ureteropelvic junction (UPJ) obstruction, left Acute
[2018-01-03] MEDS ORDERED: POTASSIUM CL 10 MEQ TAB PO ONE (21:22)
[2018-01-04] MEDS: HYDROmorph 10MCG/ML&BUP 0.1% in 100ML NS EP SCH ×3 (03:22→23:04)
[2018-01-04] MEDS: AMPICILLIN SODIUM 2 GM in NS 100 ML IV SCH ×4 (05:44→23:19)
[2018-01-04] MEDS: LEVOTHYROXINE 88 MCG TAB PO SCH (05:45)
[2018-01-04] MEDS: D5W NS 1,000 ML IV SCH ×2 (05:46→17:54)
[2018-01-04 06:12] LABS: PLATELET COUNT 302 10^3/uL (150-400)
[2018-01-04] MEDS: HYDROmorphone HCL/NS 0.5 MG/ML SYR IVP PRN ×2 (08:47→11:41)
[2018-01-04] MEDS: LIOTHYRONINE SODIUM 5 MCG TAB PO SCH (09:15)
[2018-01-04] MEDS: FLUCONAZOLE/NaCl 200 ML IV SCH (09:15)
[2018-01-04] MEDS: VENLAFAXINE XR 75 MG CAP PO SCH (09:15)
[2018-01-04] MEDS: levETIRAcetam 1000MG/NACL 100 ML IV SCH ×2 (09:15→19:57)
[2018-01-04] MEDS: DC NARCS MISC SCH (09:21)
[2018-01-04] MEDS: REGARDING ANTICOAG MISC SCH (09:21)
[2018-01-04] MEDS ORDERED: BUPIVACAINE 0.25% 30 ML SDV ONE (09:33)
[2018-01-04] MEDS ORDERED: POTASSIUM CL 10 MEQ TAB PO ONE ×2 (09:45→19:29)
[2018-01-04] MEDS: oxyCODONE IR 5 MG TAB PO PRN (10:29)
--- NOTE | 2018-01-04 10:30 | PCMIDPN ---
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 Aspirate from the urinoma is positive for Jaylene and lactobacillus. Currently she is being managed on ampicillin and fluconazole. We will continue this regimen for now but the patient went to the OR on 01/02 and had a left-sided nephrectomy which removes the focus of infection. Will likely continue her on the IV antimicrobials through her hospital stay but would likely feel comfortable switching to oral amoxicillin and fluconazole upon discharge. Suspect the total treatment time to be 7-10 days post surgery. Plan: 1. Continue both ampicillin and fluconazole at present doses. 01/03/18 14:24 01/04/18 10:28 Subjective: Patient is sitting up in bed. Her spinal anesthesia. Working couple of hours ago. She is in some mild to moderate discomfort as a result. However she remains in good spirits. No fevers or chills. Tolerating antibiotics and antifungals without issue. Objective: Ampicillin # 3 Fluconazole # 9 Vital Signs Temp Pulse Resp BP Pulse Ox 36.6 C 56 L 16 144/81 H 93 01/04/18 08:00 01/04/18 10:00 01/04/18 10:00 01/04/18 10:00 01/04/18 10:00 Microbiology 12/26/17 18:00 Gram Stain - Final Other - Aspirate Anaerobic Culture - Final Jaylene Albicans Lactobacillus Species Laboratory Results 01/04/18 05:41 01/04/18 05:41 01/03/18 01/04/18 01/05/18 05:59 05:59 05:59 Intake Total 3600 3407 Output Total 1745 1135 30 Balance 1855 2272 -30 - Physical Exam General Appearance: WD/WN, alert, no apparent distress, non-toxic Respiratory: lungs clear, normal breath sounds, No respiratory distress Cardiac/Chest: regular rate, rhythm, No tachycardia Skin: normal color, warm/dry, No rash Neuro/Psych: alert, normal mood/affect, oriented x 3 ICD10 Worksheet Patient Problems: Problems Problem Status Onset Pyelonephritis Acute Ureteropelvic junction (UPJ) obstruction, left Acute
--- NOTE | 2018-01-04 12:12 | SOAPPROG ---
SOAP Progress Note Assessment/Plan: Assessment: POD2 with Epidural Plan: 1. Plan to continue epidural until tomorrow then transition to PO pain meds 2. OK to ambulate with assistance if patient is able (currently has some numbness from epidural left side). 3. OK for DVT prophylaxis if appropriate (prefer SC heparin 5000 BID). 01/04/18 12:0 Subjective: increased pain after epidural had occlusion. Now more comfortable Objective: Vital Signs Temp Pulse Resp BP Pulse Ox 36.6 C 56 L 16 144/81 H 93 01/04/18 08:00 01/04/18 10:00 01/04/18 10:00 01/04/18 10:00 01/04/18 10:00 Microbiology 12/26/17 18:00 Gram Stain - Final Other - Aspirate Anaerobic Culture - Final Jaylene Albicans Lactobacillus Species Laboratory Results 01/04/18 05:41 01/04/18 05:41 01/03/18 01/04/18 01/05/18 05:59 05:59 05:59 Intake Total 3600 3407 Output Total 1745 1135 30 Balance 1855 2272 -30 PT 15.7 SEC (12.0-15.0) H 12/26/17 09:40 INR 1.23 (0.83-1.16) H 12/26/17 09:40 Physical Exam - Physical Exam General Appearance: no apparent distress Back: Normal inspection (epidural site clear and dressings intact) Skin: normal color ICD10 Worksheet Patient Problems: Problems Problem Status Onset Pyelonephritis Acute Ureteropelvic junction (UPJ) obstruction, left Acute
--- NOTE | 2018-01-04 12:48 | SOAPPROG ---
SOAP Progress Note Assessment/Plan: Assessment: S/P nephrectomy for urinoma/infection Plan: Await bowel function OOB as much as possible IS Plan for epidural out tomorrow ABx per ID 01/04/18 12:46 Subjective: She feels well. Pain moderate. Thinks it will be better now that epidural has been adjusted. no nausea but no flatus. Tolerating bone broth. Objective: Vital Signs Temp Pulse Resp BP Pulse Ox 36.4 C 63 16 161/81 H 95 01/04/18 12:00 01/04/18 12:00 01/04/18 12:00 01/04/18 12:00 01/04/18 12:00 Microbiology 12/26/17 18:00 Gram Stain - Final Other - Aspirate Anaerobic Culture - Final Jaylene Albicans Lactobacillus Species Laboratory Results 01/04/18 05:41 01/04/18 05:41 01/03/18 01/04/18 01/05/18 05:59 05:59 05:59 Intake Total 3600 3407 Output Total 1745 1135 30 Balance 1855 2272 -30 PT 15.7 SEC (12.0-15.0) H 12/26/17 09:40 INR 1.23 (0.83-1.16) H 12/26/17 09:40 Physical Exam - Physical Exam General Appearance: alert Respiratory: No respiratory distress Abdomen: distended (mild distention. Incisions clean, dry, and intact.) ICD10 Worksheet Patient Problems: Problems Problem Status Onset Pyelonephritis Acute Ureteropelvic junction (UPJ) obstruction, left Acute
--- NOTE | 2018-01-04 17:32 | HOSPPROG ---
Hospitalist Progress Note Assessment/Plan: The patient is a 67-year-old female with PMH complicated UTIs/urinoma status post drainage, ureteral stent, pyeloplasty and percutaneous nephrostomy who was admitted for ongoing urine leak and kidney infection. She has undergone L nephrectomy. ASSESSMENT/PLAN: Complicated UTI-Jaylene, lactobacillus, Proteus Status post L nephrectomy and partial ureterectomy POD 2 Flank pain Nausea and vomiting Elevated blood pressure, likely secondary to pain Seizure disorder History of TBI Chronic respiratory hypoxic failure-2/2 BERKLEY on CPAP Hypothyroidism Depression -anesthesiologist to remove epidural for analgesia tomorrow. Will switch to scheduled and p.r.n. Analgesics. -start Lovenox for VTE prophylaxis today. Tomorrow's dose will be held for 4 hr following epidural removal. -completed 7 days of ceftriaxone. Still on fluconazole orally. IV ampicillin. Infectious disease specialist following. -Stop potassium IV replacement. Give po potassium chloride daily. -Discussed case w/ pharmacist and Urologist. VTE prophylaxis: Starting Lovenox. Code Status: Full code Disposition: Inpatient with discharge anticipated sometime in the mid week. This pt is new to me. Reviewed chart/records for this visit. ____ Subjective: Today pt feels a little better. +fatigue, +post-op pain which is controlled w/ epidural. Objective: Vital Signs Temp Pulse Resp BP Pulse Ox 36.6 C 61 16 164/80 H 90 L 01/04/18 16:00 01/04/18 16:00 01/04/18 16:00 01/04/18 16:00 01/04/18 16:00 Laboratory Results 01/04/18 05:41 01/04/18 05:41 01/03/18 01/04/18 01/05/18 05:59 05:59 05:59 Intake Total 3600 3407 Output Total 1745 1135 70 Balance 1855 2272 -70 PT 15.7 SEC (12.0-15.0) H 12/26/17 09:40 INR 1.23 (0.83-1.16) H 12/26/17 09:40 OBJECTIVE: Physical Exam: General: The patient is a female who is alert and in no acute distress. HEENT: normocephalic, extraocular movements intact, conjunctivae clear. Mucous membranes moist. Neck: trachea midline, no visible masses. Abd: soft and nondistended. Musculoskeletal: Normal muscle tone/bulk. Neuro: cranial nerves II XII grossly intact. Intact gross motor and sensory function. Psych: Appropriate mood and appropriate affect. Skin: +mild pallor. Heme/lymph: No peripheral edema at bilateral lower extremities. Labs/Imaging/Other Tests: Personally reviewed/interpreted. Abd XR, CT abd/pelv reports reviewed. ICD10 Worksheet Patient Problems: Problems Problem Status Onset Pyelonephritis Acute Ureteropelvic junction (UPJ) obstruction, left Acute
[2018-01-04] MEDS: ENOXAPARIN 40 MG/0.4 ML SYR SC SCH (17:54)
[2018-01-05] MEDS: D5W NS 1,000 ML IV SCH ×2 (05:30→20:46)
[2018-01-05] MEDS: AMPICILLIN SODIUM 2 GM in NS 100 ML IV SCH ×4 (05:31→23:40)
[2018-01-05] MEDS: LEVOTHYROXINE 88 MCG TAB PO SCH (05:32)
[2018-01-05] MEDS: HYDROmorph 10MCG/ML&BUP 0.1% in 100ML NS EP SCH (05:57)
[2018-01-05] MEDS: oxyCODONE IR 5 MG TAB PO PRN ×3 (08:55→20:44)
[2018-01-05] MEDS ORDERED: POTASSIUM CL 10 MEQ TAB PO SCH (09:00)
--- NOTE | 2018-01-05 09:55 | POSTANESTH ---
Post Anesthetic Evaluation Cardiovascular Status: Normal, Stable Respiratory Status: Normal, Stable Level of Consciousness/Mental Status: Can Participate in Eval Pain Control: Adequate, Prn Tx Ordered Nausea/Vomiting Control: Adequate, Prn Tx Ordered Complications Possibly Related to Anesthesia: None Noted (epidural d/c'd, questions answered, tip intact. please call with questions.)
[2018-01-05] MEDS: HYDROmorphone HCL/NS 0.5 MG/ML SYR IVP PRN ×4 (10:01→23:47)
[2018-01-05] MEDS: levETIRAcetam 1000MG/NACL 100 ML IV SCH (10:03)
[2018-01-05] MEDS: FLUCONAZOLE/NaCl 200 ML IV SCH (10:03)
[2018-01-05] MEDS: LIOTHYRONINE SODIUM 5 MCG TAB PO SCH (10:03)
[2018-01-05] MEDS: VENLAFAXINE XR 75 MG CAP PO SCH (10:03)
[2018-01-05] MEDS: DC NARCS MISC SCH (10:04)
[2018-01-05] MEDS: REGARDING ANTICOAG MISC SCH (10:05)
[2018-01-05] MEDS ORDERED: HYDROmorphone HCL/NS 0.5 MG/ML SYR IVP PRN (10:19)
--- NOTE | 2018-01-05 11:45 | HOSPPROG ---
Hospitalist Progress Note Assessment/Plan: The patient is a 67-year-old female with PMH complicated UTIs/urinoma status post drainage, ureteral stent, pyeloplasty and percutaneous nephrostomy who was admitted for ongoing urine leak and kidney infection. She has undergone L nephrectomy. ASSESSMENT/PLAN: Complicated UTI-Jaylene, lactobacillus, Proteus- leukocytosis improving Status post L nephrectomy and partial ureterectomy POD 3 Flank/L abd pain, 2/2 above Elevated blood pressure, likely secondary to pain Seizure disorder History of TBI Chronic respiratory hypoxic failure- postop, resolved. BERKLEY on CPAP Hypothyroidism Depression Nausea and vomiting, resolved Hypokalemia, improved -Analgesia - discussed w/ pharmacist, patient, and RN. Pt started on oxycodone po prn by Anesthesiology as well as IV Dilaudid prn. -Encouraged pt to take as little breakthrough narcotic as possible. Continue to apply ice or heat prn pain. -Adding lidocaine patch and diclofenac gel. -ambulate as tolerated, PT/OT. -completed 7 days of ceftriaxone. Still on fluconazole orally. IV ampicillin. Infectious disease specialist following. -Increase potassium to 20mEQ daily. VTE prophylaxis: Lovenox. Code Status: Full code Disposition: Inpatient with discharge anticipated sometime in the mid week. ____ Subjective: Epidural was removed today. Patient has more pain following removal of epidural with continuous Dilaudid infusion. Patient plans to ambulate today. Objective: Vital Signs Temp Pulse Resp BP Pulse Ox 36.7 C 56 L 18 137/68 H 92 01/05/18 04:00 01/05/18 08:00 01/05/18 06:00 01/05/18 08:00 01/05/18 08:00 Laboratory Results 01/04/18 05:41 01/05/18 05:25 01/04/18 01/05/18 01/06/18 05:59 05:59 05:59 Intake Total 3407 4501 Output Total 1135 2461 550 Balance 2272 2040 -550 PT 15.7 SEC (12.0-15.0) H 12/26/17 09:40 INR 1.23 (0.83-1.16) H 12/26/17 09:40 General: The patient is this female who is alert and in no acute distress. HEENT: normocephalic, extraocular movements intact, conjunctivae clear, no lesions on face. Mucous membranes moist. Neck: trachea midline, no visible masses, no external lesions. Abd: soft and nondistended. Healing surgical incisions noted on abdomen. Musculoskeletal: Normal muscle tone and bulk. Neuro: cranial nerves II XII grossly intact. Intact gross motor and sensory function. Psych: appropriate mood/affect. Skin: Mild pallor. Heme/lymph: No peripheral edema. : Landon catheter in place, draining clear yellow urine. - Pending Discharge Pending Discharge Within 48 Hours: No ICD10 Worksheet Patient Problems: Problems Problem Status Onset Pyelonephritis Acute Ureteropelvic junction (UPJ) obstruction, left Acute
[2018-01-05] MEDS: LIDOCAINE 4%/MENTHOL 1% PATCH TD SCH (13:12)
[2018-01-05] MEDS: ENOXAPARIN 40 MG/0.4 ML SYR SC SCH (14:04)
[2018-01-05] MEDS: DICLOFENAC SODIUM 1% 100 GM GEL TP SCH ×3 (14:04→20:41)
--- NOTE | 2018-01-05 14:10 | SOAPPROG ---
SOAP Progress Note Assessment/Plan: Assessment: S/P nephrectomy for urinoma/infection Epidural now out. Bowel function not back Plan: Await bowel function OOB as much as possible IS d/c roberts ABx per ID 01/04/18 12:46 01/05/18 14:08 Subjective: Feels well. minimal flatus. Abd slightly distended. No vomiting Objective: Vital Signs Temp Pulse Resp BP Pulse Ox 36.8 C 64 16 166/89 H 93 01/05/18 12:00 01/05/18 12:00 01/05/18 12:00 01/05/18 12:00 01/05/18 12:00 Laboratory Results 01/04/18 05:41 01/05/18 05:25 01/04/18 01/05/18 01/06/18 05:59 05:59 05:59 Intake Total 3407 4501 Output Total 1135 2461 1320 Balance 2272 2040 -1320 PT 15.7 SEC (12.0-15.0) H 12/26/17 09:40 INR 1.23 (0.83-1.16) H 12/26/17 09:40 Physical Exam - Physical Exam General Appearance: no apparent distress Abdomen: distended, No guarding Skin: normal color ICD10 Worksheet Patient Problems: Problems Problem Status Onset Pyelonephritis Acute Ureteropelvic junction (UPJ) obstruction, left Acute
--- NOTE | 2018-01-05 16:07 | ASMTCMCOM ---
CM Note CM Note Notes: CM attempted to meet w/ pt today for dispo planning but pt was feeling nauseous. Pt had her epidural taken out today. PT is recommending HC. CM to follow up. Plan: TBD Date Signed: 01/05/2018 04:06 PM Electronically Signed By:DANNI Ryan
[2018-01-05] MEDS: PROMETHAZINE HCL 25 MG/ML INJ IVP PRN (16:08)
[2018-01-05] MEDS: levETIRAcetam 500 MG TAB PO SCH (20:44)
[2018-01-05] MEDS: PATCH REMOVAL 1 EA PATCH TD SCH (20:45)
[2018-01-06] MEDS: AMPICILLIN SODIUM 2 GM in NS 100 ML IV SCH ×4 (05:07→23:26)
[2018-01-06] MEDS: oxyCODONE IR 5 MG TAB PO PRN ×3 (05:09→21:36)
[2018-01-06] MEDS: LEVOTHYROXINE 88 MCG TAB PO SCH (05:09)
[2018-01-06] MEDS: DICLOFENAC SODIUM 1% 100 GM GEL TP SCH ×4 (05:11→21:27)
[2018-01-06 05:22] LABS: PLATELET COUNT 328 10^3/uL (150-400)
[2018-01-06] MEDS: D5W NS 1,000 ML IV SCH ×2 (09:02→21:27)
[2018-01-06] MEDS: VENLAFAXINE XR 75 MG CAP PO SCH (09:07)
[2018-01-06] MEDS: levETIRAcetam 500 MG TAB PO SCH ×2 (09:07→21:28)
[2018-01-06] MEDS: POTASSIUM CL 10 MEQ TAB PO SCH (09:07)
[2018-01-06] MEDS: LIDOCAINE 4%/MENTHOL 1% PATCH TD SCH (09:08)
[2018-01-06] MEDS: ENOXAPARIN 40 MG/0.4 ML SYR SC SCH (09:09)
[2018-01-06] MEDS: LIOTHYRONINE SODIUM 5 MCG TAB PO SCH (09:10)
[2018-01-06] MEDS: FLUCONAZOLE/NaCl 200 ML IV SCH (10:20)
[2018-01-06] MEDS: ONDANSETRON 4 MG/2 ML VIAL IVP PRN ×2 (10:20→16:50)
[2018-01-06] MEDS ORDERED: oxyCODONE IR 5 MG TAB PO ONE (13:15)
--- NOTE | 2018-01-06 14:25 | SOAPPROG ---
SOAP Progress Note Assessment/Plan: Assessment: S/P nephrectomy for urinoma/infection Still awaiting bowel function Plan: Await bowel function OOB as much as possible IS Subjective: Feels well. A bit more pain since epidural out. Voiding. Mild nausea this am. No flatus. +bloating Objective: Vital Signs Temp Pulse Resp BP Pulse Ox 36.6 C 64 16 141/86 H 94 01/06/18 08:34 01/06/18 08:34 01/06/18 08:34 01/06/18 08:34 01/06/18 08:34 Microbiology 12/26/17 18:00 Gram Stain - Final Other - Aspirate Anaerobic Culture - Final Jaylene Albicans Lactobacillus Species Laboratory Results 01/06/18 05:05 01/06/18 05:05 01/05/18 01/06/18 01/07/18 05:59 05:59 05:59 Intake Total 4501 2880 Output Total 2461 2110 Balance 2040 770 PT 15.7 SEC (12.0-15.0) H 12/26/17 09:40 INR 1.23 (0.83-1.16) H 12/26/17 09:40 Physical Exam - Physical Exam General Appearance: alert, no apparent distress Abdomen: soft, distended, No guarding, No rigid ICD10 Worksheet Patient Problems: Problems Problem Status Onset Pyelonephritis Acute Ureteropelvic junction (UPJ) obstruction, left Acute
[2018-01-06] MEDS ORDERED: MAGNESIUM HYDROXIDE 30 ML UDCUP PO PRN (15:40)
[2018-01-06] MEDS ORDERED: LACTULOSE 20 GM/30 ML UDCUP PO PRN (15:40)
[2018-01-06] MEDS ORDERED: POLYETHYLENE GLYCOL 3350 17 GM PKT PO PRN (15:40)
--- NOTE | 2018-01-06 15:49 | PCMIDPN ---
Assessment/Plan: Assessment/Plan: Please note this is a late entry note for patient visit of 12/30/2017. * Candidal pyelonephritis status post nephrostomy and urinoma drainage with subsequent nephrectomy and open drainage of urinoma: Clinically improved post drainage and with antimicrobial therapy. Overall improved but remains with poor appetite. Continue ampicillin (targeting lactobacillus) and fluconazole ( targeting Jaylene) with anticipated 7-10 days postoperatively (# 4/10) given foci of infection now removed. Could be completed with oral amoxicillin and fluconazole if ready for discharge prior to therapy being completed. * Possible Proteus UTI: Completed 7 days of ceftriaxone. 01/06/18 15:45 Subjective: Patient complains of poor appetite. Objective: Vital Signs Temp Pulse Resp BP Pulse Ox 36.9 C 64 18 146/78 H 96 01/06/18 15:36 01/06/18 15:36 01/06/18 15:36 01/06/18 15:36 01/06/18 15:36 Microbiology 12/26/17 18:00 Gram Stain - Final Other - Aspirate Anaerobic Culture - Final Jaylene Albicans Lactobacillus Species Laboratory Results 01/06/18 05:05 01/06/18 05:05 01/05/18 01/06/18 01/07/18 05:59 05:59 05:59 Intake Total 4501 2880 Output Total 2461 2110 Balance 2040 770 Ampicillin # 5 Fluconazole # 11 - Physical Exam General Appearance: alert, no apparent distress EENT: No scleral icterus, No thrush Respiratory: lungs clear, No respiratory distress Cardiac/Chest: regular rate, rhythm Abdomen: non-tender, other (Surgical incision intact without drainage or erythema; serosanguineous output in MISAEL), No distended ICD10 Worksheet Patient Problems: Problems Problem Status Onset Pyelonephritis Acute Ureteropelvic junction (UPJ) obstruction, left Acute
--- NOTE | 2018-01-06 16:16 | ASMTCMCOM ---
CM Note CM Note Notes: Spoke with pt regarding PT recommendation for home care. Pt is undecided at this time and would like to defer a decision. She is going to talk with a friend about staying with her for a few days after d/c. Informed pt she could have HC at her friend's if she decides she wants it. Pt has been struggling with pain control. CM will continue to follow for d/c needs. Date Signed: 01/06/2018 04:16 PM Electronically Signed By:MARGARETH Peters
[2018-01-06] MEDS: HYDROmorphone HCL/NS 0.5 MG/ML SYR IVP PRN (16:19)
--- NOTE | 2018-01-06 16:52 | HOSPPROG ---
Hospitalist Progress Note Assessment/Plan: The patient is a 67-year-old female with PMH complicated UTIs/urinoma status post drainage, ureteral stent, pyeloplasty and percutaneous nephrostomy who was admitted for ongoing urine leak and kidney infection. She has undergone L nephrectomy. ASSESSMENT/PLAN: Complicated UTI-Jaylene, lactobacillus, Proteus- leukocytosis resolved Status post L nephrectomy and partial ureterectomy POD 4 Flank/L abd pain, 2/2 above Elevated blood pressure, likely secondary to pain Seizure disorder History of TBI Chronic respiratory hypoxic failure- postop, resolved. BERKLEY on CPAP Hypothyroidism Depression Nausea and vomiting, resolved Hypokalemia, improved -Analgesia - discussed w/ patient and RN. Pt may take the 10mg dose of oxycodone if pain is uncontrolled. -Encouraged pt to take as little breakthrough narcotic as possible. Continue to apply ice or heat prn pain. -Added lidocaine patch and diclofenac gel which seems to help. -ambulate as tolerated, PT/OT. -completed 7 days of ceftriaxone. Still on fluconazole orally. IV ampicillin. Infectious disease specialist following. -Increased potassium to 20mEQ daily. Check AM lab. VTE prophylaxis: Lovenox. Code Status: Full code Disposition: Inpatient with discharge anticipated later this week. ____ Objective: Vital Signs Temp Pulse Resp BP Pulse Ox 36.9 C 64 18 146/78 H 96 01/06/18 15:36 01/06/18 15:36 01/06/18 15:36 01/06/18 15:36 01/06/18 15:36 Microbiology 12/26/17 18:00 Gram Stain - Final Other - Aspirate Anaerobic Culture - Final Jaylene Albicans Lactobacillus Species Laboratory Results 01/06/18 05:05 01/06/18 05:05 01/05/18 01/06/18 01/07/18 05:59 05:59 05:59 Intake Total 4501 2880 Output Total 2461 2110 Balance 2040 770 PT 15.7 SEC (12.0-15.0) H 12/26/17 09:40 INR 1.23 (0.83-1.16) H 12/26/17 09:40 ICD10 Worksheet Patient Problems: Problems Problem Status Onset Pyelonephritis Acute Ureteropelvic junction (UPJ) obstruction, left Acute
[2018-01-06] MEDS: PROMETHAZINE HCL 25 MG/ML INJ IVP PRN (18:21)
[2018-01-06] MEDS: SENNOSIDES/DOCUSATE SODIUM TAB PO SCH (21:28)
[2018-01-06] MEDS: PATCH REMOVAL 1 EA PATCH TD SCH (21:31)
[2018-01-07] MEDS: oxyCODONE IR 5 MG TAB PO PRN ×4 (04:30→19:52)
[2018-01-07] MEDS: DICLOFENAC SODIUM 1% 100 GM GEL TP SCH ×3 (05:42→17:25)
[2018-01-07] MEDS: AMPICILLIN SODIUM 2 GM in NS 100 ML IV SCH ×3 (05:48→17:24)
[2018-01-07] MEDS: LEVOTHYROXINE 88 MCG TAB PO SCH (05:48)
[2018-01-07] MEDS: D5W NS 1,000 ML IV SCH (05:48)
[2018-01-07] MEDS: SENNOSIDES/DOCUSATE SODIUM TAB PO SCH ×2 (08:44→19:51)
[2018-01-07] MEDS: LIOTHYRONINE SODIUM 5 MCG TAB PO SCH (08:44)
[2018-01-07] MEDS: levETIRAcetam 500 MG TAB PO SCH ×2 (08:45→19:53)
[2018-01-07] MEDS: POTASSIUM CL 10 MEQ TAB PO SCH (08:45)
[2018-01-07] MEDS: LIDOCAINE 4%/MENTHOL 1% PATCH TD SCH (08:45)
[2018-01-07] MEDS: VENLAFAXINE XR 75 MG CAP PO SCH (08:45)
[2018-01-07] MEDS: ENOXAPARIN 40 MG/0.4 ML SYR SC SCH (08:46)
[2018-01-07] MEDS ORDERED: POTASSIUM CL 10 MEQ TAB PO SCH (08:51)
--- NOTE | 2018-01-07 09:01 | SOAPPROG ---
SOAP Progress Note Assessment/Plan: Assessment: 1. POD 4 s/p open left nephrectomy - gradually recovering. Pain controlled on oral narcotics. 2. History of persistent urine leak from left renal pelvis w/ resulting urinoma , s/p robotic left dismembered pyeloplasty & ureteral stent placement on 12/05, followed by nephrectomy on 01/02. 3. History of complicated UTI involving either left kidney, urinoma, or both. 4. Post-nephrectomy ileus: slowly improving. Plan: 1. Advance diet. 2. Continue antibiotics and antifungals as per ID. Appreciate ID assistance. 3. Continue oxycodone prn pain. 4. Remove MISAEL. Subjective: Wants to advance diet. Had some flatus overnight. Feels better overall. Objective: Vital Signs Temp Pulse Resp BP Pulse Ox 36.4 C 66 16 142/87 H 93 01/07/18 08:00 01/07/18 08:00 01/07/18 08:00 01/07/18 08:00 01/07/18 08:00 Microbiology 12/26/17 18:00 Gram Stain - Final Other - Aspirate Anaerobic Culture - Final Jaylene Albicans Lactobacillus Species Laboratory Results 01/06/18 05:05 01/07/18 05:55 01/06/18 01/07/18 01/08/18 05:59 05:59 05:59 Intake Total 2880 1447 1210 Output Total 2110 110 Balance 770 1337 1210 PT 15.7 SEC (12.0-15.0) H 12/26/17 09:40 INR 1.23 (0.83-1.16) H 12/26/17 09:40 Physical Exam - Physical Exam General Appearance: alert, no apparent distress, obese Abdomen: soft, other (mild tenderness around incision; incision c/d/i) Skin: warm/dry Extremities: non-tender, normal inspection Neuro/Psych: alert, normal mood/affect ICD10 Worksheet Patient Problems: Problems Problem Status Onset Pyelonephritis Acute Ureteropelvic junction (UPJ) obstruction, left Acute
[2018-01-07] MEDS: FLUCONAZOLE/NaCl 200 ML IV SCH (10:00)
[2018-01-07] MEDS: POTASSIUM CL 20 MEQ TAB PO SCH (11:39)
[2018-01-07] MEDS: HYDROmorphone HCL/NS 0.5 MG/ML SYR IVP PRN (11:39)
--- NOTE | 2018-01-07 13:09 | ASMTCMCOM ---
CM Note CM Note Notes: Chart reviewed. Discussed patient status with Dr. Donato. 67 year old female s/p nephrectomy. Likely to need home PT. Patient is agreeable. [facility] called to re-evaluate. They can accept pending patient dc tomorrow or . Referral sent via [employer]. CM to follow. Plan: Home with [facility]. Date Signed: 01/07/2018 01:09 PM Electronically Signed By:Rowan Cisneros RN
[2018-01-07] MEDS ORDERED: BISACODYL 5 MG EC TAB PO ONE (13:56)
[2018-01-07] MEDS ORDERED: BISACODYL 5 MG EC TAB PO PRN (13:56)
[2018-01-07] MEDS ORDERED: MAGNESIUM CITRATE 300 ML BOTTLE PO ONE (13:56)
--- NOTE | 2018-01-07 14:09 | PCMIDPN ---
Assessment/Plan: #Post op infected urinoma and left pyelonephritis due to Jaylene and lactobacillus, s/p robotic left pyeloplasty & ureteral stent placement on 12/05 - now s/p L nephrectomy -some inflammation seen in OR. C. albicans susceptibilities show low COLLEEN to fluconazole. AF and nl WBC yesterday. Slow to return bowel function but bowel sounds present - and generally better than when I saw her last week. --Fluconazole and amoxicillin through 01/12, start back on PO tomorrow, orders adjusted --check LFTs in light of higher dose fluconazole --follow up Dr. Alexander 01/14 @1pm --DC PICC before discharge --Call ID for additional questions #Possible Proteus UTI/bladder infection,s/p 7 days ceftriaxone meds fluconazole 400mg IV daily #12 ampicillin 2g IV q6 #6 Micro 12/26 urinoma: Jaylene albicans: fluconazole COLLEEN 0.25 (S) 12/26 L kidney: jaylene albicans, lactobacillus 12/25 urine from bladder: 20K proteus 12/25 blood cx (2) Neg Subjective: patient with low appetite, nausea still +flatus but now BM no rash Objective: Vital Signs Temp Pulse Resp BP Pulse Ox 36.4 C 66 16 142/87 H 93 01/07/18 08:00 01/07/18 08:00 01/07/18 08:00 01/07/18 08:00 01/07/18 08:00 Microbiology 12/26/17 18:00 Gram Stain - Final Other - Aspirate Anaerobic Culture - Final Jaylene Albicans Lactobacillus Species Laboratory Results 01/06/18 05:05 01/07/18 05:55 01/06/18 01/07/18 01/08/18 05:59 05:59 05:59 Intake Total 2880 1447 1410 Output Total 2110 110 30 Balance 770 1337 1380 - Physical Exam General Appearance: alert, no apparent distress Respiratory: lungs clear, No accessory muscle use Neck: supple Cardiac/Chest: regular rate, rhythm Abdomen: normal bowel sounds (slightly hyperactive bowel sounds), non-tender, soft, distended, other (RUQ incision c/d/i, all drains out) Pelvic Exam: No roberts Skin: pallor, No rash Neuro/Psych: alert, normal mood/affect, oriented x 3 - Line/s RUE PICC Lines: No drainage, No erythema - Time Spent With Patient Time Spent with Patient: greater than 35 minutes (Care coordinated with Dr. Donato) Time Spent with Patient: Greater than 35 minutes spent on this patients care, greater than 50% of time spent counseling, educating, and coordinating care regarding the above mentioned plan. ICD10 Worksheet Patient Problems: Problems Problem Status Onset Pyelonephritis Acute Ureteropelvic junction (UPJ) obstruction, left Acute
[2018-01-07] MEDS: PROMETHAZINE HCL 25 MG/ML INJ IVP PRN (15:22)
[2018-01-07] MEDS: PATCH REMOVAL 1 EA PATCH TD SCH (20:25)
--- NOTE | 2018-01-07 21:45 | HOSPPROG ---
Hospitalist Progress Note Assessment/Plan: Assessment: 67 yo F p/w complicated UTI and polymicrobial urinoma leak Plan: # Complicated urinary tract infection - S/P pyeloplasty with stent 12/06, then developed urinoma, s/p drainage 12/26 then required perc tube. Had ongoing urine leak and is now s/p nephrectomy and partial ureterectomy -post-op pain management with prn dilaudid, PO oxy IR # Polymicrobial urinoma. 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 Completed 7 days of ceftriaxone -d/w Dr. Raya, she has recommended adjusting to PO fluconazole and amoxicillin # Acute post-op ileus. No BMs post-procedure -add mag citrate + bisacodyl, cont bowel regimen # Nausea / Vomiting - improving # Elevated blood pressure - suspect some of this is pain driven # Chronic Seizure disorder- no seizures -cont PO keppra # Chronic hypoxic respiratory failure w/ chronic metabolic alkalosis -2/2 BERKLEY, on CPAP therapy at home -bicarb 32, cont to monitor # Acute atelectasis-cont IS Hypothyroidism - continue levothyroxine. Depression - continue current dosing of Effexor. DVT prophylaxis-lovenox 40 Diet-Regular Code-Full Disposition-ADD 01/08, pending stabilization of above High level of medical complexity, high risk of worsening morbidity 2/2 issues outlined above Subjective: reports pain better controlled, has yet to have BM Objective: Vital Signs Temp Pulse Resp BP Pulse Ox 37.0 C 68 18 156/80 H 92 01/07/18 20:00 01/07/18 20:00 01/07/18 20:00 01/07/18 20:00 01/07/18 20:00 Microbiology 12/26/17 19:28 Mycobacterial Smear (COLLEEN) - Final Other - Aspirate 12/26/17 18:00 Mycobacterial Smear (COLLEEN) - Final Other - Aspirate Laboratory Results 01/06/18 05:05 01/07/18 05:55 01/06/18 01/07/18 01/08/18 05:59 05:59 05:59 Intake Total 2880 1447 2652 Output Total 2110 110 30 Balance 770 1337 2622 PT 15.7 SEC (12.0-15.0) H 12/26/17 09:40 INR 1.23 (0.83-1.16) H 12/26/17 09:40 - Physical Exam Constitutional: no apparent distress, appears nourished, obese, uncomfortable Cardiovascular: regular rate and rhythym, no murmur, rub, or gallop, No edema Respiratory: no respiratory distress, no rales or rhonchi, clear to auscultation Gastrointestinal: normoactive bowel sounds, no palpable masses, distension (mild ), No tenderness, No guarding Skin: other (well healing incision sites on abd w/o erythema/induration) Neurologic: AAOx3, sensation intact bilaterally, No weakness Psychiatric: interacting appropriately, not anxious, not encephalopathic, thought process linear ICD10 Worksheet Patient Problems: Problems Problem Status Onset Ureteropelvic junction (UPJ) obstruction, left Acute Pyelonephritis Acute
[2018-01-08] MEDS: DICLOFENAC SODIUM 1% 100 GM GEL TP SCH ×2 (00:33→05:58)
[2018-01-08] MEDS: LEVOTHYROXINE 88 MCG TAB PO SCH (08:21)
[2018-01-08] MEDS: oxyCODONE IR 5 MG TAB PO PRN ×2 (08:22→13:49)
[2018-01-08] MEDS: POTASSIUM CL 20 MEQ TAB PO SCH (08:23)
[2018-01-08] MEDS: VENLAFAXINE XR 75 MG CAP PO SCH (08:23)
[2018-01-08] MEDS: LIOTHYRONINE SODIUM 5 MCG TAB PO SCH (08:23)
[2018-01-08] MEDS: levETIRAcetam 500 MG TAB PO SCH (08:23)
[2018-01-08] MEDS: ENOXAPARIN 40 MG/0.4 ML SYR SC SCH (08:28)
[2018-01-08] MEDS: LIDOCAINE 4%/MENTHOL 1% PATCH TD SCH (08:28)
[2018-01-08] MEDS: SENNOSIDES/DOCUSATE SODIUM TAB PO SCH (08:29)
--- NOTE | 2018-01-08 08:30 | SOAPPROG ---
SOAP Progress Note Assessment/Plan: Assessment: 1. POD 6 s/p open left nephrectomy - gradually recovering. Pain controlled on oral narcotics. 2. History of persistent urine leak from left renal pelvis w/ resulting urinoma , s/p robotic left dismembered pyeloplasty & ureteral stent placement on 12/05, followed by nephrectomy on 01/02. 3. History of complicated UTI involving either left kidney, urinoma, or both. 4. Post-nephrectomy ileus: slowly improving. Plan: 1. Regular diet w/ protein shake supplement (she should continue this after discharge). Dietary consult ordered. 2. Continue antibiotics and antifungals as per ID. Appreciate ID assistance. 3. Continue oxycodone prn pain. 4. Hopeful discharge later today, pending input from ID & hospitalist service. 5. She will close outpatient BP FU w/ her PCP. It will be important to keep this in good control in the setting of a solitary kidney. 6. FU w/ me in 2 weeks. 01/08/18 08:27 Subjective: No complaints. No significant pain, no N/V overnight. Objective: Vital Signs Temp Pulse Resp BP Pulse Ox 36.8 C 70 16 164/80 H 90 L 01/08/18 04:15 01/08/18 04:15 01/08/18 04:15 01/08/18 04:15 01/08/18 04:15 Microbiology 12/26/17 19:28 Mycobacterial Smear (COLLEEN) - Final Other - Aspirate 12/26/17 18:00 Mycobacterial Smear (COLLEEN) - Final Other - Aspirate Laboratory Results 01/08/18 05:25 01/08/18 05:25 01/07/18 01/08/18 01/09/18 05:59 05:59 05:59 Intake Total 1447 2752 Output Total 110 32 Balance 1337 2720 PT 15.7 SEC (12.0-15.0) H 12/26/17 09:40 INR 1.23 (0.83-1.16) H 12/26/17 09:40 Physical Exam - Physical Exam General Appearance: alert, no apparent distress, obese Skin: normal color Neuro/Psych: alert, normal mood/affect, oriented x 3 ICD10 Worksheet Patient Problems: Problems Problem Status Onset Pyelonephritis Acute Ureteropelvic junction (UPJ) obstruction, left Acute
[2018-01-08 08:48] VITALS: BP 136/82
[2018-01-08] MEDS ORDERED: FLUCONAZOLE 100 MG TAB PO SCH (09:00)
--- NOTE | 2018-01-08 10:54 | PDIAF ---
- Diagnosis Diagnosis: Polymicrobial urinoma (kin, lactobacillus, proteus), nephrectomy Code Status: Full Code - Medication Management Discharge Medications: Medications to Continue on Transfer Albuterol [Proventil Inhaler HFA (*)] 1 - 2 puffs IH DAILY PRN 11/12/17 [Last Taken 12/05/16] Cholecalciferol Vit D3 [Vitamin D3 (*)] 5,000 units PO DAILY 11/12/17 [Last Taken 12/25/17] Levothyroxine [Synthroid 88 mcg (*)] 88 mcg PO DAILY06 11/12/17 [Last Taken ] Liothyronine Sodium [Cytomel 5 mcg (*)] 5 mcg PO DAILY 11/12/17 [Last Taken ] levETIRAcetam [Keppra 500 mg (*)] 1,000 mg PO BID 12/05/17 [Last Taken 12/25/17] Venlafaxine Xr [Effexor Xr 75MG (*)] 75 mg PO DAILY cap 12/08/17 [Last Taken ] Herbals/Supplements -Info Only 1 ea PO DAILY 12/25/17 [Last Taken Unknown] Ibuprofen [Motrin (*)] 200 mg PO DAILY PRN 12/25/17 [Last Taken Unknown] Amoxicillin Trihydrate [Amoxil] 500 mg PO TID #14 cap 01/08/18 [Last Taken Unknown] Fluconazole [Diflucan (*)] 400 mg PO DAILY #16 tab 01/08/18 [Last Taken Unknown] Lidocaine 4%/Menthol 1% [Icy Hot Lidocaine/Menthol 4%/1% Patch (*)] 1 patch TD DAILY #30 patch 01/08/18 [Last Taken Unknown] Polyethylene Glycol 3350 [Miralax 17 gm (*)] 17 gm PO DAILY PRN pkt 01/08/18 [ Last Taken Unknown] Potassium Cl [Klor-Con 20 meq (*)] 20 meq PO DAILY #30 tab 01/08/18 [Last Taken Unknown] Sennosides/Docusate Sodium [Senokot-S] 1 tab PO BID #60 tab 01/08/18 [Last Taken Unknown] oxyCODONE IR [Oxycodone Ir (*)] 5 - 10 mg PO Q4 PRN #40 tab 01/08/18 [Last Taken Unknown] Toy Painter Antibiotics: Amoxicillin 500mg PO tid, Fluconazole 400mg PO daily Prison Antibiotic Stop Date: 01/12/18 Discharge Medications: Refer to the Discharge Home Medication list for PRN reason. PICC Care - Routine: N/A - Orders Services needed: Home Care, Registered Nurse, Physical Therapy Home Care Face to Face: I certify that this patient was under my care and that I had the required dpen-ee-tyap encounter meeting the encounter requirements on the discharge day. My findings support the fact that the patient is homebound as defined in Home Care Face to Face Continued: [facility] Chapter 7 Medicare Benefits Manual 30.1.1 , The condition of the patient is such that there exists a normal inability to leave home and consequently, leaving home would require a considerable and taxing effort. Isolation Type: None Oxygen: NA Diet Recommendation: no restrictions on diet Diet Texture: Regular Texture Diet Landon: Not applicable Wound Care Instructions: keep surgical area clean and dry Additional Instructions: 1. Regular diet w/ protein shake supplement 3 times daily. 2. Oxycodone Rx. on chart. May use ibuprofen and/or Tylenol for milder pain. 3. No lifting > 15 lbs, no exercise more strenuous than walking until follow- up w/ Dr. Harris. 4. No driving for 1 week or until you no longer are taking Oxycodone, whichever is longer. 5. Follow-up w/ Dr. Harris in 2 weeks -- call to schedule. - Labs/Radiology CBC w/diff Date: 01/13/18 CMP Date: 01/13/18 Call or Fax Lab and Imaging Results to: Dr. Yossi Alexander - Follow Up Care Current Providers and Referrals: Yossi Alexander MD [Medical Doctor] - 01/14/18 1:00 pm Latisha Blackwell MD [Primary Care Provider] - 3-5 days Clover Harris MD [Medical Doctor] - follow up in 2 weeks
--- NOTE | 2018-01-08 11:02 | ASMTCMCOM ---
CM Note CM Note Notes: Patient ready for DC today. Alerted [facility] and faxed final orders. Date Signed: 01/08/2018 11:02 AM Electronically Signed By:Sara García LCSW
--- NOTE | 2018-01-08 11:11 | ASMTLACE ---
LACE Length of stay for Answers: 7-13 days current admission Acuity / Level of Answers: Yes Care: Did the patient have an inpatient admission? Comorbidities - select Answers: Other Notes: Hx of TBI; Seizure all that apply disorder # of Emergency department Answers: 1-2 visits in the last 6 months Score: 10 Date Signed: 01/08/2018 11:10 AM Electronically Signed By:Sara García LCSW
--- NOTE | 2018-01-08 15:17 | PDDCSUM ---
Discharge Summary Discharge Summary: DISCHARGE SUMMARY FOLLOW-UP ITEMS: Repeat outpatient complete metabolic profile and CBC next week with results to be followed up by Dr. Yossi Alexander DATE OF ADMISSION: 12/25/2017 DATE OF DISCHARGE: 01/08/2018 DISCHARGE DIAGNOSES: 1. Complicated urinary tract infection 2. Polymicrobial urinoma 3. Acute postoperative ileus 4. Acute atelectasis 5. Chronic hypoxic respiratory failure with chronic metabolic alkalosis 6. Chronic seizure disorder CONSULTATIONS: Urology, Infectious Disease PROCEDURES / IMAGIN12/25/2017 left-sided nephrostomy tube placement percutaneously by Interventional Radiology 12/26/2017 PICC line insertion 01/02/2018 left-sided open nephrectomy CHIEF COMPLAINT: Acute left flank pain SUBJECTIVE: Patient is feeling well at time discharge, she has moved her bowels PHYSICAL EXAM ON DISCHARGE: Systolic blood pressure is 140-160, heart rate 70, afebrile overnight, satting well on room air, alert awake oriented x3, abdomen is obese, bowel sounds are present, no significant erythema around the left upper abdomen surgical site, healing well, no lower extremity edema, heart rhythm is regular LABS ON DISCHARGE: Potassium 3.7, creatinine 0.8, white blood count 6500, hemoglobin 9.1 HOSPITAL COURSE BY PROBLEM: 1. Complicated urinary tract infection. Evidenced by positive urinalysis and positive urine culture with Proteus status post pyeloplasty with stent on 2017. The procedure at that time was uncomplicated and the patient developed subsequent urinary tract infection secondary to her abnormal renal anatomy, failing outpatient oral antibiotic therapy administered prior to presentation. On presentation, she received interventional radiology drainage with percutaneous nephrostomy tube and had ongoing urine leak resulting in polymicrobial urinoma. Culture results demonstrated lactobacillus, Proteus, Jaylene. She received 7 total days of IV ceftriaxone to treat the Proteus, will receive 10 total days of ampicillin/amoxicillin to treat lactobacillus, and 16 total days of fluconazole high-dose to treat the Jaylene. She was seen consultation fractures disease who will continue to monitor, with follow-up on 01/14, and labs prior to that appointment. 2. Polymicrobial urinoma. Secondary to persistent urine leak status post abnormal renal anatomy, failing previous attempts at pyeloplasty and stenting, requiring open left-sided total nephrectomy by Dr. Joe Harris during this hospitalization. Patient will see Dr. Joe Harris in follow-up. She will continues oxycodone immediate release for pain relief. She also has Lidoderm patches ordered. 3. Acute postop ileus. Patient required aggressive bowel regiment and will continue to receive as needed laxative and scheduled stool softener while she is on opiate pain medications in the outpatient setting. 4. Acute atelectasis. She utilize incentive spirometer, she was off of oxygen time discharge. 5. Chronic hypoxic respiratory failure with chronic metabolic alkalosis. She was continued on her home CPAP, her serum bicarbonate was stable at 32 at time discharge. DISCHARGE MEDICATIONS: Please see official discharge medication reconciliation sheet in chart , continue home medications with the addition of oxycodone immediate release 40 tabs prescribed, fluconazole 400 mg daily for 4 subsequent days, amoxicillin 500 mg 3 times a day for 4 subsequent days, scheduled Senokot S, as needed MiraLax. DISCHARGE INSTRUCTIONS: Please follow up with infectious disease as scheduled, follow up with Dr. Joe Harris in 2 weeks. TIME SPENT: Greater than 30 minutes were spent on direct patient care, as well as discharge planning and preparation.
--- NOTE | 2018-01-09 12:28 | ASDISCHSUM ---
Discharge Information Plan Status: Medically Cleared to Leave: Discharge Date:01/08/2018 04:15 PM CM D/C Disposition: ADT D/C Disposition:Home Health Service Projected Discharge Date:01/08/2018 11:00 AM Transportation at D/C: Discharge Delay Reason: Follow-Up Date:01/08/2018 11:00 AM Discharge Slot: Final Diagnosis: Placement Information Referral Type:*Home Health Care Services Referral ID:[id number] Provider Name:[facility] Address 1:[address] Address 2:[place] [address] City:[place] Selection Factors: State:[place] Patient Contact Information Contact Name:GWEN Relationship:Daughter Address:[address] [place] City:[facility] Phone: State/Zip Code:[place] [address] Email: Financial Information Financial Class:Medicare Advantage Plans Primary Plan Desc:[employer]AN[employer] MEDICARE ADV Primary Plan Number:[id number] Secondary Plan Desc: Secondary Plan Number: Assessment Information LACE LACE Length of stay for Answers: 7-13 days current admission Acuity / Level of Answers: Yes Care: Did the patient have an inpatient admission? 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 Pt had neph tube placed today. Pt lives at home independantly, does have hx of TBI. Anticipate dc home independantly when medically stable. CM available if needs arise. CM will follow. Date Signed: 12/26/2017 04:24 PM Electronically Signed By:Edwina Chavez RN [facility] CM Progress Note CM Note CM Note Notes: Chart reviewed. Met with patient to review plan of care. She is hoping to go home. She is agreeable to [facility] services should she require them, list of agencies provided. She is trying to ambulate and help resolve her ileus. Lives alone but has supportive friends. Needs still be determined.CM to follow. Plan: TBD Date Signed: 12/29/2017 01:22 PM Electronically Signed By:Rowan Cisneros RN [facility] CM Progress Note CM Note CM Note Notes: Chart reviewed. Discussed with Dr. Denise. Unclear as to need for home IV antibiotics. Met with patient to discuss her choice of home health care, she eludes to her wanting to speak to urology to see what his opinion is for her needs. She feels like she has too many physicians . CM to follow for needs. Per therapy [facility] recommended for minimum of safety eval. Plan: TBD Date Signed: 12/30/2017 01:37 PM Electronically Signed By:Rowan Cisneros RN [facility] CM Progress Note CM Note CM Note Notes: Pt doing much better today w/mobility; PT now recommending home. Met w/pt to discuss dc plan. Pt is open to having HHC RN if needed. If pt goes home w/current drains and [place] [facility] RN visit would be beneficial. Pt states she has large friend support network that will also help her at home. Referrals sent in case HHC needed. CM will follow. Date Signed: 12/31/2017 04:21 PM Electronically Signed By:Edwina Chavez RN [facility] CM Progress Note CM Note CM Note Notes: Chart reviewed for discharge planning purposes. Patient to surgery today as she has ongoing paiin, nausea and vomiting. Plan unclear at this point but will likely need HHC therapies in place for dc. CM to follow. Plan: Home with [facility] when medically cleared for discharge. Date Signed: 01/02/2018 09:53 AM Electronically Signed By:Rowan Cisneros RN [facility] CM Progress Note CM Note CM Note Notes: Chart reviewed. Patient now s/p nephrectomy with epidural. Needs to be determined. CM to follow. Plan: TBD Date Signed: 01/03/2018 01:17 PM Electronically Signed By:Rowan Cisneros RN [facility] CM Progress Note CM Note CM Note Notes: CM attempted to meet w/ pt today for dispo planning but pt was feeling nauseous. Pt had her epidural taken out today. PT is recommending HC. CM to follow up. Plan: TBD Date Signed: 01/05/2018 04:06 PM Electronically Signed By:DANNI Ryan [facility] CM Progress Note CM Note CM Note Notes: Spoke with pt regarding PT recommendation for home care. Pt is undecided at this time and would like to defer a decision. She is going to talk with a friend about staying with her for a few days after d/c. Informed pt she could have HC at her friend's if she decides she wants it. Pt has been struggling with pain control. CM will continue to follow for d/c needs. Date Signed: 01/06/2018 04:16 PM Electronically Signed By:MARGARETH Peters [facility] CM Progress Note CM Note CM Note Notes: Chart reviewed. Discussed patient status with Dr. Donato. 67 year old female s/p nephrectomy. Likely to need home PT. Patient is agreeable. [facility] called to re-evaluate. They can accept pending patient dc tomorrow or . Referral sent via [employer]. CM to follow. Plan: Home with [facility]. Date Signed: 01/07/2018 01:09 PM Electronically Signed By:Rowan Cisneros RN [facility] CM Progress Note CM Note CM Note Notes: Patient ready for DC today. Alerted [facility] and faxed final orders. Date Signed: 01/08/2018 11:02 AM Electronically Signed By:Sara García LCSW Intervention Information
== END 2018-01-08 16:15 | disposition home health service (06) | DRG 660 ==
LOC: INTOOBSV 14:15 → OBSVTOIN 14:15 → F1N 14:55
PROVIDERS: ADMIT Internal Medicine; ATTEND Internal Medicine
DX: N99.89 Other postprocedural complications and disorders of genitourinary system (principal); N39.0 Urinary tract infection, site not specified; R39.0 Extravasation of urine; K91.89 Other postprocedural complications and disorders of digestive system; J98.11 Atelectasis; J96.11 Chronic respiratory failure with hypoxia; E87.3 Alkalosis; B37.89 Other sites of candidiasis; G89.18 Other acute postprocedural pain; B96.4 Proteus (mirabilis) (morganii) as the cause of diseases classified elsewhere; G40.909 Epilepsy, unspecified, not intractable, without status epilepticus; E03.9 Hypothyroidism, unspecified; G47.33 Obstructive sleep apnea (adult) (pediatric); E86.9 Volume depletion, unspecified; Z85.3 Personal history of malignant neoplasm of breast; Z87.820 Personal history of traumatic brain injury
CPT/HCPCS: 87186-90; 96374; 97116-GP; 97162-GP; 97164-GP; 97530-GP; C1729; C1751; C1769; G0378; G8978-GP-CJ; G8979-GP-CI; G8980-GP-CI; J0290; J0330; J0696; J1100; J1170; J1450; J1644; J1650; J1953; J2060; J2250; J2370; J2405; J2550; J2704; J2765; J2795; J2997; J3010; J3480; P9016; Q9967

== ENCOUNTER → 2018-06-25 | Outpatient (CLI) | payer OTHER | LOC: FIMAGING 13:30 | PROVIDERS: ATTEND Internal Medicine | DX: Z12.31 Encounter for screening mammogram for malignant neoplasm of breast (principal) ==